=== PATIENT | male | born 1955 | race Caucasian/White ===

== ENCOUNTER 2021-07-15 15:32 | Inpatient (IN) | payer BC ==
[2021-07-15] MEDS ORDERED: PIPERACILLIN-TAZOBACTAM 3.375 GM in SODIUM CHLORIDE 0.9% 100 ML IVPB ONE (16:15)
[2021-07-15 16:40] LABS: Basophils % (A) 0 %; Eosinophils % (A) 0 %; HGB 13.8 gm/dL (13.0-17.5); Lymphocytes # (A) 0.9 k/uL (1.0-4.8); Lymphocytes % (A) 6 %; MCHC 32.9 g/dL (31.0-37.0); MCV 91.2 fL (80.0-100.0); Mean Platelet Volume 9.2; Monocytes % (A) 7 %; Neutrophils # (A) 12.8 k/uL (1.3-7.7); Neutrophils % (A) 84 %; Platelet Count 135 k/uL (150-450); RDW 14.9 % (11.5-15.5); WBC 15.3 k/uL (3.8-10.6)
[2021-07-15 16:48] LABS: ALT 28 U/L (4-49); AST 42 U/L (17-59); African American GFR (CKD) >90 (>60 ml/min/1.73 sqM); Albumin 4.5 g/dL (3.5-5.0); Alkaline Phosphatase 237 U/L (38-126); Anion Gap 12 mmol/L; Blood Urea Nitrogen 17 mg/dL (9-20); Calcium 9.7 mg/dL (8.4-10.2); Carbon Dioxide 20 mmol/L (22-30); Chloride 98 mmol/L (98-107); Glucose 149 mg/dL (74-99); Non-African American GFR(CKD) >90 (>60 ml/min/1.73 sqM); Potassium 4.6 mmol/L (3.5-5.1); Sodium 130 mmol/L (137-145); Total Bilirubin 5.6 mg/dL (0.2-1.3); Total Protein 8.6 g/dL (6.3-8.2)
--- NOTE | 2021-07-15 17:35 | CT ---
EXAMINATION TYPE: CT facial bones w con DATE OF EXAM: 07/15/2021 COMPARISON: None HISTORY: left sided facial swelling, tooth infection CT DLP: 588.7 mGycm Automated exposure control for dose reduction was used. CONTRAST: Performed with IV Contrast, patient injected with 100 mL of Isovue 300. Images obtained from the bottom of the mandible to the top of the orbits with IV contrast. Submandibular salivary glands are symmetric. The parotid glands are fairly symmetric. The mandibular ring appears intact. There is no evidence of a fracture. The maxilla is intact. There is mucosal thic kening left maxillary sinus. There are multiple missing teeth. There is some depression of the floor of the left bony orbit consistent with an old blowout fracture. I see no acute fracture. Nasal bone i s intact. There is normal aeration of the mastoid sinuses. There is asymmetric increased soft tissue density in the left side of the oropharynx and medial to th e left mandible that measures 3.7 x 2.3 cm. There is no significant fluid. This is consistent with a large phlegmon. There are some submandibular bilateral enlarged lymph nodes. This is more on the left side and larges t measures 13 mm. There is no discrete fluid collection. IMPRESSION: Left maxillary sinusitis. Old blowout fracture left orbit. There is lucency around the left side maxi llary teeth consistent with periodontal disease. Large inflammatory-appearing mass on the medial aspect of the left mandible in the oropharynx and con sistent with phlegmon.
[2021-07-15] MEDS: CLINDAMYCIN 600 MG in DEXTROSE 5% IN WATER 50 ML IVPB SCH ×4 (17:58→23:22)
--- NOTE | 2021-07-15 18:23 | ED ---
ENT HPI - General Chief complaint: Dental/Oral Stated complaint: Dental pain Time Seen by Provider: 07/15/21 15:41 Source: patient, RN notes reviewed Mode of arrival: ambulatory Limitations: no limitations - History of Present Illness Initial comments: Patient is a 65-year-old male that presents to the emergency department complaining of left-sided facial pain and swelling. He notes it is been going on for the past 4 days. He notes that last night it became difficult to handle oral secretions. This is when he decided come emergency room to get evaluated. Patient denied any other issues or complaints other than the facial pain and swelling and difficulty swallowing. Patient denied any chest pain shortness of breath headache nausea vomiting diarrhea constipation fever fatigue chills. - Related Data Previous Rx's Medication Instructions Recorded Aspirin 81 mg PO DAILY 30 Days chew 01/31/15 Digoxin [Lanoxin] 125 mcg PO Q48H #30 tab 01/31/15 Furosemide [Lasix] 40 mg PO BID@0900,1600 #60 tab 01/31/15 Spironolactone [Aldactone] 25 mg PO DAILY #30 tab 01/31/15 Warfarin [Coumadin] 2.5 mg PO DAILY #30 tab 01/31/15 carvediloL [Coreg*] 12.5 mg PO BID-W/MEALS #60 tab 01/31/15 lisinopriL [Zestril] 10 mg PO DAILY #30 tab 01/31/15 Allergies Allergy/AdvReac Type Severity Reaction Status Date / Time No Known Allergies Allergy Verified 07/15/21 15:37 Review of Systems ROS Statement: Those systems with pertinent positive or pertinent negative responses have been documented in the HPI. ROS Other: All systems not noted in ROS Statement are negative. Past Medical History Past Medical History: Atrial Fibrillation, Coronary Artery Disease (CAD), Diabetes Mellitus, Hyperlipidemia, Hypertension History of Any Multi-Drug Resistant Organisms: None Reported Past Surgical History: No Surgical Hx Reported Past Anesthesia/Blood Transfusion Reactions: No Reported Reaction Past Psychological History: No Psychological Hx Reported Smoking Status: Current every day smoker Past Alcohol Use History: Occasional Past Drug Use History: None Reported - Past Family History Sister(s) Family Medical History: No Reported History Brother(s) Family Medical History: Coronary Artery Disease (CAD) Additional Family Medical History / Comment(s): CABG Mother Family Medical History: Diabetes Mellitus General Exam Limitations: no limitations General appearance: alert, in no apparent distress, other (Submandibular swelling, swollen tongue, elevated tongue.) Head exam: Present: atraumatic, normocephalic, normal inspection Eye exam: Present: normal appearance, PERRL, EOMI. Absent: scleral icterus, conjunctival injection, periorbital swelling ENT exam: Present: normal exam, mucous membranes moist Neck exam: Present: normal inspection Respiratory exam: Present: normal lung sounds bilaterally. Absent: respiratory distress, wheezes, rales, rhonchi, stridor Cardiovascular Exam: Present: regular rate, normal rhythm, normal heart sounds. Absent: systolic murmur, diastolic murmur, rubs, gallop, clicks GI/Abdominal exam: Present: soft, normal bowel sounds. Absent: distended, tenderness, guarding, rebound, rigid Extremities exam: Present: normal inspection, full ROM, normal capillary refill. Absent: tenderness, pedal edema, joint swelling, calf tenderness Neurological exam: Present: alert, oriented X3 Psychiatric exam: Present: normal affect, normal mood Skin exam: Present: warm, dry, intact, normal color. Absent: rash Course Vital Signs 07/15/21 15:34 Pulse Rate 93 Respiratory 20 Rate Blood Pressure 131/76 O2 Sat by Pulse 95 Oximetry Medical Decision Making - Medical Decision Making 65-year-old male complaining of left-sided facial swelling pain. Labs, blood culture, CT of the face ordered. Labs: White blood cells 15.3, rest labs unremarkable. Zosyn and clindamycin started intravenously. Dr. Valadez was consulted and wants patient admitted to medicine with him on consult. Case discussed with Dr. Nguyen, patient will be admitted. Dr. Quintero was consult and will accept the admit - Lab Data Result diagrams: 07/15/21 15:56 07/15/21 15:56 Lab Results 07/15/21 07/15/21 07/15/21 Range/Units 15:56 15:56 15:56 WBC 15.3 H (3.8-10.6) k/uL RBC 4.60 (4.30-5.90) m/uL Hgb 13.8 (13.0-17.5) gm/dL Hct 42.0 (39.0-53.0) % MCV 91.2 (80.0-100.0) fL MCH 30.0 (25.0-35.0) pg MCHC 32.9 (31.0-37.0) g/dL RDW 14.9 (11.5-15.5) % Plt Count 135 L (150-450) k/uL MPV 9.2 Neutrophils % 84 % Lymphocytes % 6 % Monocytes % 7 % Eosinophils % 0 % Basophils % 0 % Neutrophils # 12.8 H (1.3-7.7) k/uL Lymphocytes # 0.9 L (1.0-4.8) k/uL Monocytes # 1.0 (0-1.0) k/uL Eosinophils # 0.0 (0-0.7) k/uL Basophils # 0.0 (0-0.2) k/uL Sodium 130 L (137-145) mmol/L Potassium 4.6 (3.5-5.1) mmol/L Chloride 98 (98-107) mmol/L Carbon Dioxide 20 L (22-30) mmol/L Anion Gap 12 mmol/L BUN 17 (9-20) mg/dL Creatinine 0.82 (0.66-1.25) mg/dL Est GFR (CKD-EPI)AfAm >90 (>60 ml/min/1.73 sqM) Est GFR (CKD-EPI)NonAf >90 (>60 ml/min/1.73 sqM) Glucose 149 H (74-99) mg/dL Plasma Lactic Acid Jerson 1.4 (0.7-2.0) mmol/L Calcium 9.7 (8.4-10.2) mg/dL Total Bilirubin 5.6 H (0.2-1.3) mg/dL AST 42 (17-59) U/L ALT 28 (4-49) U/L Alkaline Phosphatase 237 H (38-126) U/L Total Protein 8.6 H (6.3-8.2) g/dL Albumin 4.5 (3.5-5.0) g/dL - Radiology Data Radiology results: report reviewed, image reviewed CT of the facial bones: Left maxillary sinusitis. Old blowout fracture left orbit. There is lucency around the left side maxillary teeth consistent with periodontal disease. Large inflammatory appearing mass on the medial aspect of the left mandible in the oropharynx consistent with phlegmon. Disposition Clinical Impression: Submandibular abscess, Pain, dental Disposition: ADMITTED IP TO THIS HOSP Condition: Stable Is patient prescribed a controlled substance at d/c from ED?: No Referrals: Barbara Hampton MD [Primary Care Provider] - 1-2 days Time of Disposition: 18:53
[2021-07-15] MEDS ORDERED: NALOXONE 0.4 MG/ML 1 ML VIAL IV PRN (18:54)
[2021-07-15] MEDS: SODIUM CHLORIDE 0.9% 1,000 ML IV SCH (19:54)
[2021-07-16] MEDS: PIPERACILLIN-TAZOBACTAM 3.375 GM in SODIUM CHLORIDE 0.9% 100 ML IVPB SCH ×2 (00:28→09:31)
[2021-07-16] MEDS: SODIUM CHLORIDE 0.9% 1,000 ML IV SCH ×2 (06:00→11:55)
[2021-07-16 07:35] LABS: Glucose,Whole Blood 130 mg/dL (75-99)
[2021-07-16] MEDS: CLINDAMYCIN 600 MG in DEXTROSE 5% IN WATER 50 ML IVPB SCH ×4 (08:15→15:25)
--- NOTE | 2021-07-16 09:18 | P.GSCN ---
History of Present Illness Consult date: 07/16/21 Reason for Consult: Facial swelling Requesting physician: Quincy Nguyen History of present illness: Patient sitting up in bed appears comfortable reported needle and 5 days of swelling and pain left side of his jaw. He had not sought any treatment up to this point. Reported when he eat a piece of food Caught between his teeth and that made the pain worse. Today the patient reported some improvement with the swelling since IV antibiotics had been started. Review of Systems - Constitutional Reports as per HPI - EENT EENT Comment(s): Patient reports some difficulty swallowing no difficulty breathing. He reports some improvement in the pain of his mouth since starting IV antibiotics yesterday. Past Medical History Past Medical History: Atrial Fibrillation, Coronary Artery Disease (CAD), Diabetes Mellitus, Hyperlipidemia, Hypertension Additional Past Medical History / Comment(s): Patient's chart revealed a admission in 2014 congestive heart failure with some mention of alcohol-related cardiomyopathy. The patient admitted to still drinking but not drinking as much as he used to. History of Any Multi-Drug Resistant Organisms: None Reported Past Surgical History: No Surgical Hx Reported Past Anesthesia/Blood Transfusion Reactions: No Reported Reaction Past Psychological History: No Psychological Hx Reported Smoking Status: Current every day smoker Past Alcohol Use History: Occasional Additional Past Alcohol Use History / Comment(s): smokes 1.5 packs per day Past Drug Use History: None Reported - Past Family History Sister(s) Family Medical History: No Reported History Brother(s) Family Medical History: Coronary Artery Disease (CAD) Additional Family Medical History / Comment(s): CABG Mother Family Medical History: Diabetes Mellitus Medications and Allergies Home Medications Medication Instructions Recorded Confirmed Type Spironolactone [Aldactone] 25 mg PO DAILY #30 tab 01/31/15 07/15/21 Rx lisinopriL [Zestril] 10 mg PO DAILY #30 tab 01/31/15 07/15/21 Rx Atorvastatin [Lipitor] 40 mg PO HS 07/15/21 07/15/21 History Carvedilol [Coreg] 25 mg PO BID 07/15/21 07/15/21 History Furosemide [Lasix] 40 mg PO DAILY 07/15/21 07/15/21 History Warfarin [Coumadin] 10 mg PO HS 07/15/21 07/15/21 History amLODIPine [Norvasc] 10 mg PO DAILY 07/15/21 07/15/21 History Allergies Allergy/AdvReac Type Severity Reaction Status Date / Time No Known Allergies Allergy Verified 07/15/21 19:23 Surgical - Exam Vital Signs Pulse Resp BP Pulse Ox 93 20 131/76 95 07/15/21 15:34 07/15/21 15:34 07/15/21 15:34 07/15/21 15:34 Patient has a submandibular swelling approximately 1-1/2 cm with elevation of the floor the mouth. Seem to be some spontaneous bleeding near the lingual gutter of tooth #19. The patient's mouth opening seems to be within normal limits able to visualize his posterior oropharynx. Patient does have a strong gag reflex. Tooth #18 appears to have some periodontal disease and tooth #19 has broken beyond repair. Results Elevated white count suggestive of infection. Decreased platelets combined with Coumadin therapy makes surgery more challenging. - Labs 07/15/21 15:56 07/15/21 15:56 Abnormal Lab Results - Last 24 Hours (Table) 07/15/21 07/15/21 07/16/21 Range/Units 15:56 15:56 06:59 WBC 15.3 H (3.8-10.6) k/uL Plt Count 135 L (150-450) k/uL Neutrophils # 12.8 H (1.3-7.7) k/uL Lymphocytes # 0.9 L (1.0-4.8) k/uL Sodium 130 L (137-145) mmol/L Carbon Dioxide 20 L (22-30) mmol/L Glucose 149 H (74-99) mg/dL POC Glucose (mg/dL) 130 H (75-99) mg/dL Total Bilirubin 5.6 H (0.2-1.3) mg/dL Alkaline Phosphatase 237 H (38-126) U/L Total Protein 8.6 H (6.3-8.2) g/dL Diabetes panel 07/15/21 Range/Units 15:56 Sodium 130 L (137-145) mmol/L Potassium 4.6 (3.5-5.1) mmol/L Chloride 98 (98-107) mmol/L Carbon Dioxide 20 L (22-30) mmol/L BUN 17 (9-20) mg/dL Creatinine 0.82 (0.66-1.25) mg/dL Glucose 149 H (74-99) mg/dL Calcium 9.7 (8.4-10.2) mg/dL AST 42 (17-59) U/L ALT 28 (4-49) U/L Alkaline Phosphatase 237 H (38-126) U/L Total Protein 8.6 H (6.3-8.2) g/dL Albumin 4.5 (3.5-5.0) g/dL Calcium panel 07/15/21 Range/Units 15:56 Calcium 9.7 (8.4-10.2) mg/dL Albumin 4.5 (3.5-5.0) g/dL Pituitary panel 07/15/21 Range/Units 15:56 Sodium 130 L (137-145) mmol/L Potassium 4.6 (3.5-5.1) mmol/L Chloride 98 (98-107) mmol/L Carbon Dioxide 20 L (22-30) mmol/L BUN 17 (9-20) mg/dL Creatinine 0.82 (0.66-1.25) mg/dL Glucose 149 H (74-99) mg/dL Calcium 9.7 (8.4-10.2) mg/dL Adrenal panel 07/15/21 Range/Units 15:56 Sodium 130 L (137-145) mmol/L Potassium 4.6 (3.5-5.1) mmol/L Chloride 98 (98-107) mmol/L Carbon Dioxide 20 L (22-30) mmol/L BUN 17 (9-20) mg/dL Creatinine 0.82 (0.66-1.25) mg/dL Glucose 149 H (74-99) mg/dL Calcium 9.7 (8.4-10.2) mg/dL Total Bilirubin 5.6 H (0.2-1.3) mg/dL AST 42 (17-59) U/L ALT 28 (4-49) U/L Alkaline Phosphatase 237 H (38-126) U/L Total Protein 8.6 H (6.3-8.2) g/dL Albumin 4.5 (3.5-5.0) g/dL Assessment and Plan Assessment: Submandibular space infection most likely related to fractured tooth #19. Atrial fibrillation with Coumadin therapy Coumadin therapy Thrombocytopenia Plan: Patient seems to be improving on current medical management. Currently no airway embarrassment able to maintain his saliva. Patient is high risk for bleeding. Await current INR. Recommend continue IV antibiotic therapy. Recommend head of bed elevated and patient sit up in the chair when awake. Recommend heating pad to the side of the neck. Time with Patient: Greater than 30
[2021-07-16] MEDS ORDERED: carvediloL 12.5 MG TAB PO SCH (09:45)
--- NOTE | 2021-07-16 10:53 | P.HPIM ---
History of Present Illness H&P Date: 07/16/21 Chief Complaint: dental abscess This is a 65-year-old male patient who presented with concerns of ongoing jaw and mouth swelling. Patient reports the symptoms have been ongoing for the past 5 days. Patient reports that last night it became increasingly more swollen and he felt like his tongue was only could not handle his oral secretions. Patient denies any previous antibiotics prior to ER. Patient does appear to have poor dental hygiene. Patient with a past medical history of atrial fibrillation in which she is maintained on Coumadin, coronary artery disease, diabetes mellitus, hyperlipidemia, hypertension and nicotine dependence. CT completed showing left maxillary sinusitis, old blowout fracture left orbit there is lucency around the left side maxillary teeth consistent with periodontal disease. Large inflammatory appearing mass in the medial aspect of the left mandible in the or for pharynx and consistent with phlegmon. Patient has been admitted. Dr. Valadez has been consulted. Patient has been started on IV antibiotics. Patient is currently resting comfortably in bed. Does report some improvement in regards to pain and swelling. Patient denies chest pain or shortness breath. Patient denies nausea vomiting or diarrhea. Patient denies any urinary burning or frequency. Review of Systems please refer to HPI otherwise unremarkable Past Medical History Past Medical History: Atrial Fibrillation, Coronary Artery Disease (CAD), Diabetes Mellitus, Hyperlipidemia, Hypertension Additional Past Medical History / Comment(s): Patient's chart revealed a admission in 2014 congestive heart failure with some mention of alcohol-related cardiomyopathy. The patient admitted to still drinking but not drinking as much as he used to. History of Any Multi-Drug Resistant Organisms: None Reported Past Surgical History: No Surgical Hx Reported Past Anesthesia/Blood Transfusion Reactions: No Reported Reaction Past Psychological History: No Psychological Hx Reported Smoking Status: Current every day smoker Past Alcohol Use History: Occasional Additional Past Alcohol Use History / Comment(s): smokes 1.5 packs per day Past Drug Use History: None Reported - Past Family History Sister(s) Family Medical History: No Reported History Brother(s) Family Medical History: Coronary Artery Disease (CAD) Additional Family Medical History / Comment(s): CABG Mother Family Medical History: Diabetes Mellitus Medications and Allergies Home Medications Medication Instructions Recorded Confirmed Type Spironolactone [Aldactone] 25 mg PO DAILY #30 tab 01/31/15 07/15/21 Rx lisinopriL [Zestril] 10 mg PO DAILY #30 tab 01/31/15 07/15/21 Rx Atorvastatin [Lipitor] 40 mg PO HS 07/15/21 07/15/21 History Carvedilol [Coreg] 25 mg PO BID 07/15/21 07/15/21 History Furosemide [Lasix] 40 mg PO DAILY 07/15/21 07/15/21 History Warfarin [Coumadin] 10 mg PO HS 07/15/21 07/15/21 History amLODIPine [Norvasc] 10 mg PO DAILY 07/15/21 07/15/21 History Allergies Allergy/AdvReac Type Severity Reaction Status Date / Time No Known Allergies Allergy Verified 07/15/21 19:23 Physical Exam Vitals: Vital Signs Temp Pulse Pulse Resp BP BP Pulse Ox 07/16/21 08:00 18 07/16/21 06:56 97.4 F L 92 18 102/64 93 L 07/16/21 01:19 EDT 97.6 F 90 18 116/66 94 L 07/15/21 22:48 97.1 F L 104 H 20 108/67 93 L 07/15/21 15:34 93 20 131/76 95 Intake and Output 07/15/21 07/16/21 07/16/21 23:59 06:59 14:59 Intake Total 100 Balance 100 Intake: IV Sodium Chloride 0.9% 1, 000 ml @ 20 mls/hr IV . Q24H [facility] Rx#:[id number] Oral 100 Other: Voiding Method Toilet # Voids Weight Head normocephalic. Left sided jaw swelling. Poor dental hygiene Neck supple Lungs clear to auscultation bilaterally no wheezing or crackles Heart regular rate and rhythm S1-S2, no rub or gallop Abdomen is soft nontender nondistended positive bowel sounds no hepatosplenomegaly Extremities no edema Neuro alert and orientated to 3 Results CBC & Chem 7: 07/15/21 15:56 07/15/21 15:56 Labs: Abnormal Lab Results - Last 24 Hours (Table) 07/15/21 07/15/21 07/16/21 Range/Units 15:56 15:56 06:59 WBC 15.3 H (3.8-10.6) k/uL Plt Count 135 L (150-450) k/uL Neutrophils # 12.8 H (1.3-7.7) k/uL Lymphocytes # 0.9 L (1.0-4.8) k/uL Sodium 130 L (137-145) mmol/L Carbon Dioxide 20 L (22-30) mmol/L Glucose 149 H (74-99) mg/dL POC Glucose (mg/dL) 130 H (75-99) mg/dL Total Bilirubin 5.6 H (0.2-1.3) mg/dL Alkaline Phosphatase 237 H (38-126) U/L Total Protein 8.6 H (6.3-8.2) g/dL Thrombosis Risk Factor Assmnt - Choose All That Apply Any of the Below Risk Factors Present?: Yes Each Factor Represents 1 point: Obesity (BMI >25) Other Risk Factors: Yes Each Risk Factor Represents 2 Points: Age 61-74 years Other congenital or acquired thrombophilia - If yes, enter type in comment: No Thrombosis Risk Factor Assessment Total Risk Factor Score: 3 Thrombosis Risk Factor Assessment Level: Moderate Risk Assessment and Plan Assessment: 1. Dental abscess. Dr. Valadez following. Patient remains on IV antibiotics 2. History of atrial fibrillation maintained on Coumadin 3. Known history of coronary artery disease 4. Diabetes mellitus. Will order sliding scale coverage in order hemoglobin A1c 5. History of essential hypertension 6. History of hyperlipidemia 7. History of congestive heart failure noted in 2014 with low EF. Repeat 2-D echo has been ordered 8. Ongoing nicotine dependence. Patient educated greater than 3 minutes on smoking sensation nicotine patch ordered DVT prophylaxis Coumadin. GI prophylaxis Protonix Continue IV antibiotics 2-D echo ordered Repeat labs ordered Time with Patient: Greater than 30 (Greater than 60% of the total time spent in counseling and coordination of care)
[2021-07-16] MEDS: FUROSEMIDE 40 MG TAB PO SCH (11:55)
[2021-07-16] MEDS: NICOTINE 14MG/24HR PATCH TRANSDERM SCH (11:55)
[2021-07-16 11:59] LABS: Basophils % (A) 0 %; Eosinophils % (A) 0 %; HCT 37.9 % (39.0-53.0); HGB 12.6 gm/dL (13.0-17.5); Lymphocytes # (A) 0.9 k/uL (1.0-4.8); Lymphocytes % (A) 7 %; MCH 30.3 pg (25.0-35.0); MCHC 33.3 g/dL (31.0-37.0); MCV 91.2 fL (80.0-100.0); Mean Platelet Volume 8.4; Monocytes # (A) 0.8 k/uL (0-1.0); Monocytes % (A) 7 %; Neutrophils # (A) 10.2 k/uL (1.3-7.7); Neutrophils % (A) 82 %; Platelet Count 135 k/uL (150-450); RBC 4.16 m/uL (4.30-5.90); WBC 12.5 k/uL (3.8-10.6)
[2021-07-16 12:12] LABS: AST 51 U/L (17-59); African American GFR (CKD) >90 (>60 ml/min/1.73 sqM); Albumin 3.8 g/dL (3.5-5.0); Blood Urea Nitrogen 18 mg/dL (9-20); Carbon Dioxide 19 mmol/L (22-30); Globulin 3.8 g/dL; Glucose 139 mg/dL (74-99); Non-African American GFR(CKD) >90 (>60 ml/min/1.73 sqM); Total Bilirubin 4.5 mg/dL (0.2-1.3); Total Protein 7.6 g/dL (6.3-8.2)
[2021-07-16 12:30] LABS: ALT 33 U/L (4-49); Alkaline Phosphatase 177 U/L (38-126); Anion Gap 12 mmol/L; Calcium 9.1 mg/dL (8.4-10.2); Chloride 103 mmol/L (98-107); Potassium 4.1 mmol/L (3.5-5.1); Sodium 134 mmol/L (137-145)
[2021-07-16 12:33] LABS: Glucose,Whole Blood 130 mg/dL (75-99)
[2021-07-16] MEDS: INSULIN ASPART (NovoLOG) 100 UNIT/ML VIAL SQ SCH ×3 (12:55→20:43)
[2021-07-16 13:09] LABS: Prothrombin Time 66.2 sec (9.0-12.0)
[2021-07-16 13:13] LABS: INR 6.8 (<1.2)
[2021-07-16] MEDS: lisinopriL 10 MG TAB PO SCH (13:28)
[2021-07-16 17:25] LABS: Glucose,Whole Blood 107 mg/dL (75-99)
[2021-07-16] MEDS ORDERED: WARFARIN 0.5 MG TAB PO ONE (18:00)
[2021-07-16] MEDS: AMPICILLIN-SULBACTAM 3 GM in SODIUM CHLORIDE 0.9% 100 ML IVPB SCH ×2 (18:13→23:31)
[2021-07-16 20:01] LABS: Glucose,Whole Blood 137 mg/dL (75-99)
[2021-07-16] MEDS: ATORVASTATIN 40 MG TAB PO SCH (20:41)
[2021-07-16] MEDS: carvediloL 12.5 MG TAB PO SCH (20:42)
[2021-07-16] MEDS ORDERED: WARFARIN 10 MG TAB PO SCH (21:00)
--- NOTE | 2021-07-16 22:40 | P.CONS ---
History of Present Illness - Reason for Consult Consult date: 07/16/21 infected jaw Requesting physician: Raffi Quintero - Chief Complaint left lower jaw pain x 5 days - History of Present Illness History of present illness : Patient is 65-year-old male presenting to the ER for left lower jaw pain and swelling that has been getting worse for the last 5 days before presentation to the hospital patient apparently has been concerned of a piece of food article caught between his teeth that has made his pain to get worse patient describing the pain to be more of a throbbing to sharp intensity is almost 5-6 out of 10 and no radiation patient denies high-grade fever or chills on presentation to the hospital the patient did have a elevated white count 15.3 with a left shift INR was elevated kidney function was normal raymond PCR was negative patient did have a CT of the face patient is large intermittent bleeding most on the medial aspect of the left mandible in the oropharynx consistent with the following patient been evaluated by general surgery with evidence of statement of 19 broken beyond repair with some inflammatory changes but mention no surgical intervention patient is currently being treated with Zosyn and clindamycin infectious disease was consulted for further management of antibiotic therapy Review of system: CONSTITUTIONAL: Positive for weakness denies high-grade fever. EYES: No complaint. ENT: As per history of present illness. RESPIRATORY: No complaint. CARDIOVASCULAR: No complaint. GENITOURINARY: No complaint. GASTROINTESTINAL: No complaint. MUSCULOSKELETAL: No complaint. INTEGUMENTARY: No complaint. PSYCHOLOGIC: No complaint. ENDOCRINE: No complaint. NEUROLOGIC: No complaint. Past medical history : Reviewed, documented below Past surgical history : Reviewed, documented below Social history: Reviewed, documented below Medications: Reviewed, as documented below EXAMINATION: Vital sigans= Reviewed and documented below GENERAL DESCRIPTION: Middle-aged male up in bed, no distress. No tachypnea or accessory muscle of respiration use. HEENT: Shows Pallor , no scleral icterus. Oral mucous membrane is dry. Left lower jaw did have significant inflammatory changes no purulent drainage was noticed NECK: Trachea central, no thyromegaly. LUNGS: Unlabored breathing. Clear to auscultation anteriorly. No wheeze or crackle. HEART: S1, S2, regular rate and rhythm. ABDOMEN: Soft, no tenderness , guarding or rigidity EXTREMITIES: No edema of feet. SKIN: No rash, no masses palpable. NEUROLOGICAL: The patient is awake, alert, oriented x3, mood and affect normal. LABS AND RADIOLOGY: Reviewed results see below Assessment : Patient with a left lower jaw abscess and cellulitis in this p atient predominantly involving his tooth #19 which apparently is broken beyond repair and will need to cover for the polymicrobial oral magalis to cover for this abscess empirically Plan: 1-discontinue Zosyn and clindamycin 2-start the patient on Unasyn 3 g every 6 hours 3-gentle IV fluid We will follow on clinical condition and cultures to further adjust medication if needed Thank you for this consultation we will follow the patient along with you Past Medical History Past Medical History: Atrial Fibrillation, Coronary Artery Disease (CAD), Diabetes Mellitus, Hyperlipidemia, Hypertension Additional Past Medical History / Comment(s): Patient's chart revealed a admission in 2014 congestive heart failure with some mention of alcohol-related cardiomyopathy. The patient admitted to still drinking but not drinking as much as he used to. History of Any Multi-Drug Resistant Organisms: None Reported Past Surgical History: No Surgical Hx Reported Past Anesthesia/Blood Transfusion Reactions: No Reported Reaction Past Psychological History: No Psychological Hx Reported Smoking Status: Current every day smoker Past Alcohol Use History: Occasional Additional Past Alcohol Use History / Comment(s): smokes 1.5 packs per day Past Drug Use History: None Reported - Past Family History Sister(s) Family Medical History: No Reported History Brother(s) Family Medical History: Coronary Artery Disease (CAD) Additional Family Medical History / Comment(s): CABG Mother Family Medical History: Diabetes Mellitus Medications and Allergies Home Medications Medication Instructions Recorded Confirmed Type Spironolactone [Aldactone] 25 mg PO DAILY #30 tab 01/31/15 07/15/21 Rx lisinopriL [Zestril] 10 mg PO DAILY #30 tab 01/31/15 07/15/21 Rx Atorvastatin [Lipitor] 40 mg PO HS 07/15/21 07/15/21 History Carvedilol [Coreg] 25 mg PO BID 07/15/21 07/15/21 History Furosemide [Lasix] 40 mg PO DAILY 07/15/21 07/15/21 History Warfarin [Coumadin] 10 mg PO HS 07/15/21 07/15/21 History amLODIPine [Norvasc] 10 mg PO DAILY 07/15/21 07/15/21 History Allergies Allergy/AdvReac Type Severity Reaction Status Date / Time No Known Allergies Allergy Verified 07/15/21 19:23 Physical Exam Vitals: Vital Signs Temp Pulse Resp BP Pulse Ox 07/16/21 19:40 98.3 F 102 H 18 109/66 98 07/16/21 14:02 98.3 F 96 18 116/73 96 07/16/21 14:00 96 18 07/16/21 11:37 92 20 119/75 98 07/16/21 08:00 18 07/16/21 06:56 97.4 F L 92 18 102/64 93 L 07/16/21 01:19 EDT 97.6 F 90 18 116/66 94 L Intake and Output 07/16/21 07/16/21 07/16/21 06:59 14:59 22:59 Intake Total 220 170 Balance 220 170 Intake: IV 50 Clindamycin 600 mg In 50 Dextrose 5% in Water 50 ml @ 50 mls/hr IVPB Q8HR [facility] Rx#:[id number] Sodium Chloride 0.9% 1, 000 ml @ 20 mls/hr IV . Q24H [facility] Rx#:[id number] Oral 220 120 Other: Voiding Method Toilet # Voids 1 2 Results CBC & Chem 7: 07/16/21 11:38 07/16/21 11:38 Labs: Abnormal Lab Results - Last 24 Hours (Table) 07/16/21 07/16/21 07/16/21 Range/Units 06:59 11:38 11:38 WBC 12.5 H (3.8-10.6) k/uL RBC 4.16 L (4.30-5.90) m/uL Hgb 12.6 L (13.0-17.5) gm/dL Hct 37.9 L (39.0-53.0) % Plt Count 135 L (150-450) k/uL Neutrophils # 10.2 H (1.3-7.7) k/uL Lymphocytes # 0.9 L (1.0-4.8) k/uL PT 66.2 H (9.0-12.0) sec INR 6.8 H* (<1.2) Sodium (137-145) mmol/L Carbon Dioxide (22-30) mmol/L Glucose (74-99) mg/dL POC Glucose (mg/dL) 130 H (75-99) mg/dL Total Bilirubin (0.2-1.3) mg/dL Alkaline Phosphatase (38-126) U/L 07/16/21 07/16/21 07/16/21 Range/Units 11:38 12:31 17:15 WBC (3.8-10.6) k/uL RBC (4.30-5.90) m/uL Hgb (13.0-17.5) gm/dL Hct (39.0-53.0) % Plt Count (150-450) k/uL Neutrophils # (1.3-7.7) k/uL Lymphocytes # (1.0-4.8) k/uL PT (9.0-12.0) sec INR (<1.2) Sodium 134 L (137-145) mmol/L Carbon Dioxide 19 L (22-30) mmol/L Glucose 139 H (74-99) mg/dL POC Glucose (mg/dL) 130 H 107 H (75-99) mg/dL Total Bilirubin 4.5 H (0.2-1.3) mg/dL Alkaline Phosphatase 177 H (38-126) U/L 07/16/21 Range/Units 19:59 WBC (3.8-10.6) k/uL RBC (4.30-5.90) m/uL Hgb (13.0-17.5) gm/dL Hct (39.0-53.0) % Plt Count (150-450) k/uL Neutrophils # (1.3-7.7) k/uL Lymphocytes # (1.0-4.8) k/uL PT (9.0-12.0) sec INR (<1.2) Sodium (137-145) mmol/L Carbon Dioxide (22-30) mmol/L Glucose (74-99) mg/dL POC Glucose (mg/dL) 137 H (75-99) mg/dL Total Bilirubin (0.2-1.3) mg/dL Alkaline Phosphatase (38-126) U/L Microbiology - Last 24 Hours (Table) 07/15/21 15:56 Blood Culture - Preliminary Blood No Growth after 24 hours
[2021-07-17] MEDS: AMPICILLIN-SULBACTAM 3 GM in SODIUM CHLORIDE 0.9% 100 ML IVPB SCH ×4 (05:11→23:25)
[2021-07-17 07:24] LABS: Glucose,Whole Blood 124 mg/dL (75-99)
[2021-07-17 07:27] LABS: Basophils % (A) 0 %; Eosinophils # (A) 0.1 k/uL (0-0.7); Eosinophils % (A) 1 %; HCT 38.1 % (39.0-53.0); HGB 12.4 gm/dL (13.0-17.5); Lymphocytes % (A) 10 %; MCH 29.8 pg (25.0-35.0); MCHC 32.6 g/dL (31.0-37.0); MCV 91.6 fL (80.0-100.0); Mean Platelet Volume 8.8; Monocytes # (A) 0.7 k/uL (0-1.0); Monocytes % (A) 7 %; Neutrophils # (A) 7.6 k/uL (1.3-7.7); Neutrophils % (A) 78 %; Platelet Count 141 k/uL (150-450); RBC 4.16 m/uL (4.30-5.90); RDW 15.1 % (11.5-15.5); WBC 9.8 k/uL (3.8-10.6)
[2021-07-17] MEDS: INSULIN ASPART (NovoLOG) 100 UNIT/ML VIAL SQ SCH ×4 (07:38→21:56)
[2021-07-17 07:44] LABS: Prothrombin Time 73.2 sec (9.0-12.0)
[2021-07-17 07:52] LABS: INR 7.5 (<1.2)
[2021-07-17 07:58] LABS: ALT 72 U/L (4-49); AST 119 U/L (17-59); African American GFR (CKD) >90 (>60 ml/min/1.73 sqM); Albumin 3.7 g/dL (3.5-5.0); Albumin/Globulin Ratio 0.9; Alkaline Phosphatase 207 U/L (38-126); Anion Gap 11 mmol/L; Blood Urea Nitrogen 17 mg/dL (9-20); Calcium 9.3 mg/dL (8.4-10.2); Carbon Dioxide 22 mmol/L (22-30); Chloride 104 mmol/L (98-107); Globulin 3.9 g/dL; Glucose 120 mg/dL (74-99); Non-African American GFR(CKD) >90 (>60 ml/min/1.73 sqM); Potassium 3.9 mmol/L (3.5-5.1); Sodium 137 mmol/L (137-145); Total Bilirubin 3.7 mg/dL (0.2-1.3); Total Protein 7.6 g/dL (6.3-8.2)
[2021-07-17] MEDS: NICOTINE 14MG/24HR PATCH TRANSDERM SCH (08:38)
[2021-07-17] MEDS: lisinopriL 10 MG TAB PO SCH (08:38)
[2021-07-17] MEDS: carvediloL 12.5 MG TAB PO SCH ×2 (08:38→21:55)
[2021-07-17] MEDS: FUROSEMIDE 40 MG TAB PO SCH (08:39)
[2021-07-17] MEDS: PANTOPRAZOLE 40 MG TABLET PO SCH (08:39)
[2021-07-17] MEDS: amLODIPine 10 MG TAB PO SCH (08:39)
[2021-07-17] MEDS: SPIRONOLACTONE 25 MG TAB PO SCH (08:39)
[2021-07-17] MEDS ORDERED: SPIRONOLACTONE 25 MG TAB PO SCH (09:00)
--- NOTE | 2021-07-17 09:44 | P.PN ---
Subjective Progress Note Date: 07/17/21 This is a 65-year-old male patient who presented with concerns of ongoing jaw and mouth swelling. Patient reports the symptoms have been ongoing for the past 5 days. Patient reports that last night it became increasingly more swollen and he felt like his tongue was only could not handle his oral secretions. Patient denies any previous antibiotics prior to ER. Patient does appear to have poor dental hygiene. Patient with a past medical history of atrial fibrillation in which she is maintained on Coumadin, coronary artery disease, diabetes mellitus, hyperlipidemia, hypertension and nicotine dependence. CT completed showing left maxillary sinusitis, old blowout fracture left orbit there is lucency around the left side maxillary teeth consistent with periodontal disease. Large inflammatory appearing mass in the medial aspect of the left mandible in the or for pharynx and consistent with phlegmon. Patient has been admitted. Dr. Valadez has been consulted. Patient has been started on IV antibiotics. Patient is currently resting comfortably in bed. Does report some improvement in regards to pain and swelling. Patient denies chest pain or shortness breath. Patient denies nausea vomiting or diarrhea. Patient denies any urinary burning or frequency. On 07/17/2021 patient alert and oriented 3. Patient still having significant swelling to left side of face. Antibiotics have been adjusted to Unasyn per infectious disease. INR currently elevated at 7.5. Coumadin on hold inte rventions currently on hold. 2-D echo also ordered to assess cardiac function. At this time patient denies chest pain or shortness breath. Patient denies nausea vomiting or diarrhea. Patient denies any urinary burning or frequency. White blood cell improving to 9.8 patient remains afebrile Objective - Vital Signs Vital signs: Vital Signs Temp 97.5 F L 07/17/21 07:00 Pulse 89 07/17/21 07:00 Resp 16 07/17/21 07:00 BP 128/75 07/17/21 07:00 Pulse Ox 95 07/17/21 07:00 Intake & Output 07/16/21 07/17/21 07/17/21 18:59 06:59 18:59 Intake Total 390 240 Balance 390 240 Intake: IV 50 Clindamycin 600 mg In 50 Dextrose 5% in Water 50 ml @ 50 mls/hr IVPB Q8HR [facility] Rx#:[id number] Oral 340 240 Other: Voiding Method Toilet # Voids 2 2 - Exam Head normocephalic. Left sided facial swelling. Poor dental hygiene Neck supple Lungs clear to auscultation bilaterally no wheezing or crackles Heart regular rate and rhythm S1-S2, no rub or gallop Abdomen is soft nontender nondistended positive bowel sounds no hepatosplenomegaly Extremities no edema Neuro alert and orientated to 3 Results - Labs CBC & Chem 7: 07/17/21 06:43 07/17/21 06:43 Labs: Abnormal Lab Results - Last 24 Hours (Table) 07/16/21 07/16/21 07/16/21 Range/Units 11:38 11:38 11:38 WBC 12.5 H (3.8-10.6) k/uL RBC 4.16 L (4.30-5.90) m/uL Hgb 12.6 L (13.0-17.5) gm/dL Hct 37.9 L (39.0-53.0) % Plt Count 135 L (150-450) k/uL Neutrophils # 10.2 H (1.3-7.7) k/uL Lymphocytes # 0.9 L (1.0-4.8) k/uL PT 66.2 H (9.0-12.0) sec INR 6.8 H* (<1.2) Sodium 134 L (137-145) mmol/L Carbon Dioxide 19 L (22-30) mmol/L Glucose 139 H (74-99) mg/dL POC Glucose (mg/dL) (75-99) mg/dL Hemoglobin A1c (4.0-6.0) % Total Bilirubin 4.5 H (0.2-1.3) mg/dL AST (17-59) U/L ALT (4-49) U/L Alkaline Phosphatase 177 H (38-126) U/L 07/16/21 07/16/21 07/16/21 Range/Units 11:38 12:31 17:15 WBC (3.8-10.6) k/uL RBC (4.30-5.90) m/uL Hgb (13.0-17.5) gm/dL Hct (39.0-53.0) % Plt Count (150-450) k/uL Neutrophils # (1.3-7.7) k/uL Lymphocytes # (1.0-4.8) k/uL PT (9.0-12.0) sec INR (<1.2) Sodium (137-145) mmol/L Carbon Dioxide (22-30) mmol/L Glucose (74-99) mg/dL POC Glucose (mg/dL) 130 H 107 H (75-99) mg/dL Hemoglobin A1c 6.5 H (4.0-6.0) % Total Bilirubin (0.2-1.3) mg/dL AST (17-59) U/L ALT (4-49) U/L Alkaline Phosphatase (38-126) U/L 07/16/21 07/17/21 07/17/21 Range/Units 19:59 06:43 06:43 WBC (3.8-10.6) k/uL RBC 4.16 L (4.30-5.90) m/uL Hgb 12.4 L (13.0-17.5) gm/dL Hct 38.1 L (39.0-53.0) % Plt Count 141 L (150-450) k/uL Neutrophils # (1.3-7.7) k/uL Lymphocytes # (1.0-4.8) k/uL PT (9.0-12.0) sec INR (<1.2) Sodium (137-145) mmol/L Carbon Dioxide (22-30) mmol/L Glucose 120 H (74-99) mg/dL POC Glucose (mg/dL) 137 H (75-99) mg/dL Hemoglobin A1c (4.0-6.0) % Total Bilirubin 3.7 H (0.2-1.3) mg/dL AST 119 H (17-59) U/L ALT 72 H (4-49) U/L Alkaline Phosphatase 207 H (38-126) U/L 07/17/21 07/17/21 Range/Units 06:43 07:22 WBC (3.8-10.6) k/uL RBC (4.30-5.90) m/uL Hgb (13.0-17.5) gm/dL Hct (39.0-53.0) % Plt Count (150-450) k/uL Neutrophils # (1.3-7.7) k/uL Lymphocytes # (1.0-4.8) k/uL PT 73.2 H (9.0-12.0) sec INR 7.5 H* (<1.2) Sodium (137-145) mmol/L Carbon Dioxide (22-30) mmol/L Glucose (74-99) mg/dL POC Glucose (mg/dL) 124 H (75-99) mg/dL Hemoglobin A1c (4.0-6.0) % Total Bilirubin (0.2-1.3) mg/dL AST (17-59) U/L ALT (4-49) U/L Alkaline Phosphatase (38-126) U/L Microbiology - Last 24 Hours (Table) 07/15/21 15:56 Blood Culture - Preliminary Blood No Growth after 24 hours Assessment and Plan Assessment: 1. Dental abscess. Dr. Valadez following. Patient remains on IV antibiotics 2. History of atrial fibrillation maintained on Coumadin 3. Known history of coronary artery disease 4. Diabetes mellitus. Will order sliding scale coverage in order hemoglobin A1c 5. History of essential hypertension 6. History of hyperlipidemia 7. History of congestive heart failure noted in 2014 with low EF. Repeat 2-D echo has been ordered 8. Ongoing nicotine dependence. Patient educated greater than 3 minutes on smoking sensation nicotine patch ordered 9. Supratherapeutic INR Coumadin currently on hold repeat INR ordered DVT prophylaxis Coumadin. GI prophylaxis Protonix Continue IV antibiotics 2-D echo ordered Repeat labs ordered
[2021-07-17] MEDS ORDERED: PHYTONADIONE 2 MG in SODIUM CHLORIDE 0.9% 50 ML IVPB STA (10:26)
[2021-07-17 12:13] LABS: Glucose,Whole Blood 143 mg/dL (75-99)
[2021-07-17] MEDS: SODIUM CHLORIDE 0.9% 1,000 ML IV SCH (13:19)
--- NOTE | 2021-07-17 17:17 | P.PN ---
Subjective Progress Note Date: 07/17/21 Principal diagnosis: Dental abscess Supratherapeutic Coumadin Patient's antibiotics have been changed to Unasyn per infectious disease. The patient's INR is now 7.5 and the nurse reported giving IV vitamin K. Patient reports feeling better still having no trouble breathing. Slight improvement with mouth swelling and difficulty swallowing per patient. Objective - Vital Signs Vital signs: Vital Signs Temp 98.0 F 07/17/21 15:00 Pulse 91 07/17/21 15:00 Resp 16 07/17/21 15:00 BP 111/66 07/17/21 15:00 Pulse Ox 99 07/17/21 15:00 Intake & Output 07/16/21 07/17/21 07/17/21 18:59 06:59 18:59 Intake Total 390 240 Balance 390 240 Intake: IV 50 Clindamycin 600 mg In 50 Dextrose 5% in Water 50 ml @ 50 mls/hr IVPB Q8HR [facility] Rx#:[id number] Oral 340 240 Other: Voiding Method Toilet Toilet # Voids 2 2 3 - Exam Patient's mouth opening is still within normal limits floor of mouth no longer spontaneously bleeding but still quite swollen on the left lingual gutter especially adjacent to tooth #18. 1-1/2-2 cm swelling adjacent to the left submandibular space. Does not cross the midline. Posterior all her oral pharynx is visualized. - Labs CBC & Chem 7: 07/17/21 06:43 07/17/21 06:43 Labs: Abnormal Lab Results - Last 24 Hours (Table) 07/16/21 07/16/21 07/16/21 Range/Units 11:38 17:15 19:59 RBC (4.30-5.90) m/uL Hgb (13.0-17.5) gm/dL Hct (39.0-53.0) % Plt Count (150-450) k/uL PT (9.0-12.0) sec INR (<1.2) Glucose (74-99) mg/dL POC Glucose (mg/dL) 107 H 137 H (75-99) mg/dL Hemoglobin A1c 6.5 H (4.0-6.0) % Total Bilirubin (0.2-1.3) mg/dL AST (17-59) U/L ALT (4-49) U/L Alkaline Phosphatase (38-126) U/L 07/17/21 07/17/21 07/17/21 Range/Units 06:43 06:43 06:43 RBC 4.16 L (4.30-5.90) m/uL Hgb 12.4 L (13.0-17.5) gm/dL Hct 38.1 L (39.0-53.0) % Plt Count 141 L (150-450) k/uL PT 73.2 H (9.0-12.0) sec INR 7.5 H* (<1.2) Glucose 120 H (74-99) mg/dL POC Glucose (mg/dL) (75-99) mg/dL Hemoglobin A1c (4.0-6.0) % Total Bilirubin 3.7 H (0.2-1.3) mg/dL AST 119 H (17-59) U/L ALT 72 H (4-49) U/L Alkaline Phosphatase 207 H (38-126) U/L 07/17/21 07/17/21 Range/Units 07:22 12:12 RBC (4.30-5.90) m/uL Hgb (13.0-17.5) gm/dL Hct (39.0-53.0) % Plt Count (150-450) k/uL PT (9.0-12.0) sec INR (<1.2) Glucose (74-99) mg/dL POC Glucose (mg/dL) 124 H 143 H (75-99) mg/dL Hemoglobin A1c (4.0-6.0) % Total Bilirubin (0.2-1.3) mg/dL AST (17-59) U/L ALT (4-49) U/L Alkaline Phosphatase (38-126) U/L Microbiology - Last 24 Hours (Table) 07/15/21 15:56 Blood Culture - Preliminary Blood No Growth after 24 hours Assessment and Plan Assessment: Submandibular space infection most likely related to fractured tooth #18 Atrial fibrillation with Coumadin therapy Coumadin therapy Plan: Patient continues to improve current medical management approve new antibiotic choice. Due supratherapeutic Coumadin therapy, all procedures would be on hold for now await new INR in the morning. Recommend heating pad to the side of the neck. Time with Patient: Less than 30
[2021-07-17 17:24] LABS: Glucose,Whole Blood 107 mg/dL (75-99)
[2021-07-17] MEDS ORDERED: WARFARIN 0.5 MG TAB PO ONE (18:00)
[2021-07-17 20:26] LABS: Glucose,Whole Blood 189 mg/dL (75-99)
[2021-07-17] MEDS: ATORVASTATIN 40 MG TAB PO SCH (21:55)
--- NOTE | 2021-07-17 23:13 | PN ---
PROGRESS NOTE DATE OF SERVICE: 07/17/2021 REASON FOR FOLLOWUP: Left lower jaw infection. INTERVAL HISTORY: The patient is afebrile, breathing comfortably. Pain to the left lower jaw has slightly decreased. No chest pain, shortness of breath or cough. No abdominal pain or diarrhea. PHYSICAL EXAMINATION: Blood pressure is 134/82 with a pulse of 96, temperature 97.4. He is 97% on room air. General description is a middle-aged male lying in bed in no distress. Respiratory system: Unlabored breathing, clear to auscultation anteriorly. Heart S1, S2. Regular rate and rhythm. Abdomen soft, no tenderness. Left lower jaw swelling and redness slightly decreased. LABS: Hemoglobin is 12.40. White count normalized to 9.8, creatinine 0.80. DIAGNOSTIC IMPRESSION AND PLAN: Patient with left lower jaw abscess, infected tooth #19. Patient is currently on Unasyn. White count has normalized. Continue Unasyn while monitoring his clinical course closely. Continue supportive care. MMODL / IJN: [id number] /
[2021-07-18] MEDS: AMPICILLIN-SULBACTAM 3 GM in SODIUM CHLORIDE 0.9% 100 ML IVPB SCH ×4 (05:29→23:39)
[2021-07-18 06:30] LABS: INR 1.5 (<1.2); Prothrombin Time 15.2 sec (9.0-12.0)
[2021-07-18 06:34] LABS: Basophils % (A) 1 %; Eosinophils # (A) 0.1 k/uL (0-0.7); Eosinophils % (A) 2 %; HCT 35.9 % (39.0-53.0); HGB 12.1 gm/dL (13.0-17.5); Lymphocytes # (A) 1.1 k/uL (1.0-4.8); Lymphocytes % (A) 16 %; MCH 30.5 pg (25.0-35.0); MCHC 33.7 g/dL (31.0-37.0); MCV 90.4 fL (80.0-100.0); Mean Platelet Volume 8.7; Monocytes # (A) 0.6 k/uL (0-1.0); Monocytes % (A) 8 %; Neutrophils # (A) 4.9 k/uL (1.3-7.7); Neutrophils % (A) 70 %; Platelet Count 145 k/uL (150-450); RBC 3.97 m/uL (4.30-5.90); RDW 15.7 % (11.5-15.5)
[2021-07-18 06:46] LABS: ALT 110 U/L (4-49); AST 143 U/L (17-59); African American GFR (CKD) >90 (>60 ml/min/1.73 sqM); Albumin 3.3 g/dL (3.5-5.0); Albumin/Globulin Ratio 0.9; Alkaline Phosphatase 190 U/L (38-126); Anion Gap 9 mmol/L; Blood Urea Nitrogen 14 mg/dL (9-20); Calcium 9.1 mg/dL (8.4-10.2); Carbon Dioxide 21 mmol/L (22-30); Chloride 106 mmol/L (98-107); Globulin 3.7 g/dL; Glucose 126 mg/dL (74-99); Non-African American GFR(CKD) >90 (>60 ml/min/1.73 sqM); Potassium 3.9 mmol/L (3.5-5.1); Sodium 136 mmol/L (137-145); Total Bilirubin 3.3 mg/dL (0.2-1.3)
[2021-07-18 07:17] LABS: Glucose,Whole Blood 145 mg/dL (75-99)
[2021-07-18] MEDS: INSULIN ASPART (NovoLOG) 100 UNIT/ML VIAL SQ SCH ×4 (08:36→20:54)
[2021-07-18] MEDS: lisinopriL 10 MG TAB PO SCH (09:58)
[2021-07-18] MEDS: FUROSEMIDE 40 MG TAB PO SCH (09:58)
[2021-07-18] MEDS: carvediloL 12.5 MG TAB PO SCH ×2 (09:59→20:55)
[2021-07-18] MEDS: SPIRONOLACTONE 25 MG TAB PO SCH (09:59)
[2021-07-18] MEDS: amLODIPine 10 MG TAB PO SCH (09:59)
[2021-07-18] MEDS: NICOTINE 14MG/24HR PATCH TRANSDERM SCH (09:59)
--- NOTE | 2021-07-18 12:00 | ECHOF ---
Referral Reason:check heart function MEASUREMENTS -------- HEIGHT: 180.3 cm WEIGHT: 87.1 kg BP: RVIDd: 3.1 cm (< 3.3) IVSd: 1.1 cm (0.6 - 1.1) LVIDd: 3.5 cm (3.9 - 5.3) LVPWd: 1.3 cm (0.6 - 1.1) IVSs: 1.5 cm LVIDs: 2.4 cm LVPWs: 1.5 cm LAESV Index (A-L): 26.95 ml/m Ao Diam: 3.5 cm (2.0 - 3.7) AV Cusp: 1.5 cm (1.5 - 2.6) LA Diam: 3.7 cm (2.7 - 3.8) MV EXCURSION: 20.824 mm (> 18.000) MV EF SLOPE: 175 mm/s (70 - 150) EPSS: 1.6 cm RAP: 5.00 mmHg RVSP: 31.22 mmHg FINDINGS -------- Atrial fibrillation. This was a technically adequate study. The left ventricular size is normal. Left ventricular wall thickness is normal. Overall left vent ricular systolic function is low-normal with, an EF between 50 - 55 %. The right ventricle is normal in size. Normal LA size by volume 22+/-6 ml/m2. The right atrial size is normal. Aortic valve is trileaflet and is mildly thickened. Mild mitral annular calcification present. There is trace mitral regurgitation. The tricuspid valve appears structurally normal. Mild tricuspid regurgitation present. Right vent ricular systolic pressure is normal at < 35 mmHg. There is no pulmonic regurgitation present. The aortic root size is normal. Normal inferior vena cava with normal inspiratory collapse consistent with estimated right atrial pre ssure of 5 mmHg. There is no pericardial effusion. CONCLUSIONS -------- 1. Atrial fibrillation. 2. Overall left ventricular systolic function is low-normal with, an EF between 50 - 55 %. 3. Normal LA size by volume 22+/-6 ml/m2. 4. Aortic valve is trileaflet and is mildly thickened. 5. There is trace mitral regurgitation. 6. Mild tricuspid regurgitation present. 7. There is no pericardial effusion. TUMBLING INSTRUCTOR: Cheryl Sena RDCS
[2021-07-18 12:27] LABS: Glucose,Whole Blood 121 mg/dL (75-99)
[2021-07-18] MEDS: PANTOPRAZOLE 40 MG TABLET PO SCH (12:37)
[2021-07-18] MEDS: SODIUM CHLORIDE 0.9% 1,000 ML IV SCH (12:38)
[2021-07-18] MEDS ORDERED: ENOXAPARIN 40 MG/0.4 ML SYRINGE SQ SCH (13:15)
--- NOTE | 2021-07-18 13:20 | PN ---
PROGRESS NOTE DATE OF SERVICE: 07/18/2021 REASON FOR FOLLOWUP: Left lower jaw abscess and infected tooth. INTERVAL HISTORY: The patient is afebrile. He is breathing comfortably. Mentioned left lower jaw pain, though overall improvement. No nausea, no vomiting. No abdominal pain and no diarrhea. PHYSICAL EXAMINATION: Blood pressure 137/56, pulse of 97, temperature 97.5. He is 96% on room air. General description is a middle-aged male up in the chair in no distress. HEENT examination left lower area swelling has slightly decreased. No drainage was noticed. Lungs unlabored breathing, clear to auscultation anteriorly. Heart S1, S2. Regular rate and rhythm. Abdomen soft, no tenderness. LABS: Hemoglobin is 12.1, white count 7.0. Creatinine is 0.74. DIAGNOSTIC IMPRESSION AND PLAN: Patient with left lower jaw abscess and infected tooth #19. Minimal clinical improvement. To continue with Unasyn for another 24 to 48 hours before transitioning to oral antibiotics. Continue with supportive care. MMODL / IJN: [id number] /
--- NOTE | 2021-07-18 17:03 | P.PN ---
Subjective Progress Note Date: 07/18/21 This is a 65-year-old male patient who presented with concerns of ongoing jaw and mouth swelling. Patient reports the symptoms have been ongoing for the past 5 days. Patient reports that last night it became increasingly more swollen and he felt like his tongue was only could not handle his oral secretions. Patient denies any previous antibiotics prior to ER. Patient does appear to have poor dental hygiene. Patient with a past medical history of atrial fibrillation in which she is maintained on Coumadin, coronary artery disease, diabetes mellitus, hyperlipidemia, hypertension and nicotine dependence. CT completed showing left maxillary sinusitis, old blowout fracture left orbit there is lucency around the left side maxillary teeth consistent with periodontal disease. Large inflammatory appearing mass in the medial aspect of the left mandible in the or for pharynx and consistent with phlegmon. Patient has been admitted. Dr. Valadez has been consulted. Patient has been started on IV antibiotics. Patient is currently resting comfortably in bed. Does report some improvement in regards to pain and swelling. Patient denies chest pain or shortness breath. Patient denies nausea vomiting or diarrhea. Patient denies any urinary burning or frequency. On 07/17/2021 patient alert and oriented 3. Patient still having significant swelling to left side of face. Antibiotics have been adjusted to Unasyn per infectious disease. INR currently elevated at 7.5. Coumadin on hold inte rventions currently on hold. 2-D echo also ordered to assess cardiac function. At this time patient denies chest pain or shortness breath. Patient denies nausea vomiting or diarrhea. Patient denies any urinary burning or frequency. White blood cell improving to 9.8 patient remains afebrile On 07/18/2021 Patient was seen and examined on the medical floor, he is alert and oriented x 3 in no distress, he denies any complaints there is no fever or chills no headache or dizziness no chest pain no shortness of breath no palpitation no cough no nausea or vomiting no abdominal pain no diarrhea no blood in the stools no burning with urination no frequency or urgency and no hematuria, there is no weakness or numbness in any of the extremities no change in vision speech or gait. At this time infection is improving continue with current IV antibiotics awaiting surgical intervention possibly tomorrow, at this time INR is subtherapeutic after receiving vitamin K will start subcu Lovenox. Will resume Coumadin after surgery. Objective - Vital Signs Vital signs: Vital Signs Temp 97.5 F L 07/18/21 07:00 Pulse 89 07/18/21 07:05 Resp 18 07/18/21 07:05 BP 137/56 07/18/21 07:00 Pulse Ox 96 07/18/21 07:00 Intake & Output 07/17/21 07/18/21 07/18/21 18:59 06:59 18:59 Intake Total 240 Balance 240 Intake: Oral 240 Other: Voiding Method Toilet Toilet Toilet # Voids 3 3 - Exam Head normocephalic. Left sided facial swelling. Poor dental hygiene Neck supple Lungs clear to auscultation bilaterally no wheezing or crackles Heart regular rate and rhythm S1-S2, no rub or gallop Abdomen is soft nontender nondistended positive bowel sounds no hepatosplenomegaly Extremities no edema Neuro alert and orientated to 3 Results - Labs CBC & Chem 7: 07/18/21 05:35 07/18/21 05:35 Labs: Abnormal Lab Results - Last 24 Hours (Table) 07/17/21 07/17/21 07/17/21 Range/Units 12:12 17:23 20:25 RBC (4.30-5.90) m/uL Hgb (13.0-17.5) gm/dL Hct (39.0-53.0) % RDW (11.5-15.5) % Plt Count (150-450) k/uL PT (9.0-12.0) sec INR (<1.2) Sodium (137-145) mmol/L Carbon Dioxide (22-30) mmol/L Glucose (74-99) mg/dL POC Glucose (mg/dL) 143 H 107 H 189 H (75-99) mg/dL Total Bilirubin (0.2-1.3) mg/dL AST (17-59) U/L ALT (4-49) U/L Alkaline Phosphatase (38-126) U/L Albumin (3.5-5.0) g/dL 07/18/21 07/18/21 07/18/21 Range/Units 05:35 05:35 05:35 RBC 3.97 L (4.30-5.90) m/uL Hgb 12.1 L (13.0-17.5) gm/dL Hct 35.9 L (39.0-53.0) % RDW 15.7 H (11.5-15.5) % Plt Count 145 L (150-450) k/uL PT 15.2 H (9.0-12.0) sec INR 1.5 H (<1.2) Sodium 136 L (137-145) mmol/L Carbon Dioxide 21 L (22-30) mmol/L Glucose 126 H (74-99) mg/dL POC Glucose (mg/dL) (75-99) mg/dL Total Bilirubin 3.3 H (0.2-1.3) mg/dL AST 143 H (17-59) U/L ALT 110 H (4-49) U/L Alkaline Phosphatase 190 H (38-126) U/L Albumin 3.3 L (3.5-5.0) g/dL 07/18/21 Range/Units 07:16 RBC (4.30-5.90) m/uL Hgb (13.0-17.5) gm/dL Hct (39.0-53.0) % RDW (11.5-15.5) % Plt Count (150-450) k/uL PT (9.0-12.0) sec INR (<1.2) Sodium (137-145) mmol/L Carbon Dioxide (22-30) mmol/L Glucose (74-99) mg/dL POC Glucose (mg/dL) 145 H (75-99) mg/dL Total Bilirubin (0.2-1.3) mg/dL AST (17-59) U/L ALT (4-49) U/L Alkaline Phosphatase (38-126) U/L Albumin (3.5-5.0) g/dL Microbiology - Last 24 Hours (Table) 07/15/21 15:56 Blood Culture - Preliminary Blood No Growth after 48 hours Assessment and Plan Assessment: 1. Dental abscess. Dr. Valadez following. Patient remains on IV antibiotics 2. History of atrial fibrillation maintained on Coumadin 3. Known history of coronary artery disease 4. Diabetes mellitus. Will order sliding scale coverage in order hemoglobin A1c 5. History of essential hypertension 6. History of hyperlipidemia 7. History of congestive heart failure noted in 2014 with low EF. Repeat 2-D echo has been ordered 8. Ongoing nicotine dependence. Patient educated greater than 3 minutes on smoking sensation nicotine patch ordered 9. Supratherapeutic INR Coumadin currently on hold repeat INR ordered DVT prophylaxis Coumadin. GI prophylaxis Protonix Continue IV antibiotics 2-D echo ordered Repeat labs ordered
[2021-07-18 17:58] LABS: Glucose,Whole Blood 135 mg/dL (75-99)
[2021-07-18] MEDS ORDERED: WARFARIN 0.5 MG TAB PO ONE (18:00)
[2021-07-18 20:09] LABS: Glucose,Whole Blood 133 mg/dL (75-99)
[2021-07-18] MEDS: ATORVASTATIN 40 MG TAB PO SCH (20:55)
[2021-07-19] MEDS: AMPICILLIN-SULBACTAM 3 GM in SODIUM CHLORIDE 0.9% 100 ML IVPB SCH ×3 (05:38→17:46)
[2021-07-19] MEDS: INSULIN ASPART (NovoLOG) 100 UNIT/ML VIAL SQ SCH ×4 (07:18→20:37)
[2021-07-19 07:36] LABS: Glucose,Whole Blood 117 mg/dL (75-99)
[2021-07-19] MEDS: PANTOPRAZOLE 40 MG TABLET PO SCH (09:22)
[2021-07-19 09:37] LABS: INR 1.21 (0.90-1.11)
[2021-07-19] MEDS: carvediloL 12.5 MG TAB PO SCH ×2 (09:50→19:51)
[2021-07-19] MEDS: SPIRONOLACTONE 25 MG TAB PO SCH (09:51)
[2021-07-19] MEDS: lisinopriL 10 MG TAB PO SCH (09:51)
[2021-07-19] MEDS: amLODIPine 10 MG TAB PO SCH (09:51)
[2021-07-19] MEDS: FUROSEMIDE 40 MG TAB PO SCH (09:51)
[2021-07-19] MEDS: NICOTINE 14MG/24HR PATCH TRANSDERM SCH (09:54)
[2021-07-19 10:09] LABS: Basophils # (A) 0.06 X 10*3/uL (0.00-0.10); Eosinophils # (A) 0.15 X 10*3/uL (0.04-0.35); Eosinophils % (A) 2.5 %; HCT 35.1 % (39.6-50.0); HGB 11.4 g/dL (13.0-17.0); Lymphocytes # (A) 1.24 X 10*3/uL (0.90-5.00); Lymphocytes % (A) 20.7 %; MCH 29.2 pg (27.0-32.0); MCHC 32.5 g/dL (32.0-37.0); MCV 89.8 fL (80.0-97.0); Mean Platelet Volume 11.7 fL (9.5-12.2); Neutrophils # (A) 3.63 X 10*3/uL (1.80-7.70); Neutrophils % (A) 60.5 %; Platelet Count 161 X 10*3/uL (140-440); RBC 3.91 X 10*6/uL (4.40-5.60); RDW 15.6 % (11.5-14.5)
[2021-07-19] MEDS: SODIUM CHLORIDE 0.9% 1,000 ML IV SCH (10:10)
--- NOTE | 2021-07-19 12:16 | P.PN ---
Subjective Progress Note Date: 07/19/21 This is a 65-year-old male patient who presented with concerns of ongoing jaw and mouth swelling. Patient reports the symptoms have been ongoing for the past 5 days. Patient reports that last night it became increasingly more swollen and he felt like his tongue was only could not handle his oral secretions. Patient denies any previous antibiotics prior to ER. Patient does appear to have poor dental hygiene. Patient with a past medical history of atrial fibrillation in which she is maintained on Coumadin, coronary artery disease, diabetes mellitus, hyperlipidemia, hypertension and nicotine dependence. CT completed showing left maxillary sinusitis, old blowout fracture left orbit there is lucency around the left side maxillary teeth consistent with periodontal disease. Large inflammatory appearing mass in the medial aspect of the left mandible in the or for pharynx and consistent with phlegmon. Patient has been admitted. Dr. Valadez has been consulted. Patient has been started on IV antibiotics. Patient is currently resting comfortably in bed. Does report some improvement in regards to pain and swelling. Patient denies chest pain or shortness breath. Patient denies nausea vomiting or diarrhea. Patient denies any urinary burning or frequency. On 07/17/2021 patient alert and oriented 3. Patient still having significant swelling to left side of face. Antibiotics have been adjusted to Unasyn per infectious disease. INR currently elevated at 7.5. Coumadin on hold inte rventions currently on hold. 2-D echo also ordered to assess cardiac function. At this time patient denies chest pain or shortness breath. Patient denies nausea vomiting or diarrhea. Patient denies any urinary burning or frequency. White blood cell improving to 9.8 patient remains afebrile On 07/18/2021 Patient was seen and examined on the medical floor, he is alert and oriented x 3 in no distress, he denies any complaints there is no fever or chills no headache or dizziness no chest pain no shortness of breath no palpitation no cough no nausea or vomiting no abdominal pain no diarrhea no blood in the stools no burning with urination no frequency or urgency and no hematuria, there is no weakness or numbness in any of the extremities no change in vision speech or gait. At this time infection is improving continue with current IV antibiotics awaiting surgical intervention possibly tomorrow, at this time INR is subtherapeutic after receiving vitamin K will start subcu Lovenox. Will resume Coumadin after surgery. 07/19/2021 patient is alert and oriented 3. patient swelling slightly improved. Plans today for extraction of tooth and drainage per Dr. Valadez. Coumadin to resume after surgery. Patient remains on IV antibiotics. Patient denies chest pain or shortness breath. Patient denies nausea vomiting or diarrhea. Patient denies any urinary burning or frequency Objective - Vital Signs Vital signs: Vital Signs Temp 98.4 F 07/19/21 07:00 Pulse 105 H 07/19/21 07:00 Resp 16 07/19/21 08:00 BP 129/84 07/19/21 07:00 Pulse Ox 98 07/19/21 07:00 Intake & Output 07/18/21 07/19/21 07/19/21 18:59 06:59 18:59 Intake Total 180 Balance 180 Intake: Oral 180 Other: Voiding Method Toilet Toilet Toilet # Voids 4 3 # Bowel Movements 1 1 - Exam Head normocephalic. Left sided facial swelling. Poor dental hygiene Neck supple Lungs clear to auscultation bilaterally no wheezing or crackles Heart regular rate and rhythm S1-S2, no rub or gallop Abdomen is soft nontender nondistended positive bowel sounds no hepa tosplenomegaly Extremities no edema Neuro alert and orientated to 3 Results - Labs CBC & Chem 7: 07/19/21 06:03 07/18/21 05:35 Labs: Abnormal Lab Results - Last 24 Hours (Table) 07/18/21 07/18/21 07/18/21 Range/Units 12:26 17:55 20:07 RBC (4.40-5.60) X 10*6/uL Hgb (13.0-17.0) g/dL Hct (39.6-50.0) % RDW (11.5-14.5) % PT (9.9-11.9) sec INR (0.90-1.11) POC Glucose (mg/dL) 121 H 135 H 133 H (75-99) mg/dL 07/19/21 07/19/21 07/19/21 Range/Units 06:03 06:03 07:18 RBC 3.91 L (4.40-5.60) X 10*6/uL Hgb 11.4 L (13.0-17.0) g/dL Hct 35.1 L (39.6-50.0) % RDW 15.6 H (11.5-14.5) % PT 13.0 H (9.9-11.9) sec INR 1.21 H (0.90-1.11) POC Glucose (mg/dL) 117 H (75-99) mg/dL Microbiology - Last 24 Hours (Table) 07/15/21 15:56 Blood Culture - Preliminary Blood No Growth after 72 hours Assessment and Plan Assessment: 1. Dental abscess. Dr. Valadez following. Patient remains on IV antibiotics 2. History of atrial fibrillation maintained on Coumadin 3. Known history of coronary artery disease 4. Diabetes mellitus. Will order sliding scale coverage in order hemoglobin A1c 5. History of essential hypertension 6. History of hyperlipidemia 7. History of congestive heart failure noted in 2014 with low EF. Repeat 2-D echo has been ordered. 2-D echo completed showing an EF of 50-55% 8. Ongoing nicotine dependence. Patient educated greater than 3 minutes on smoking sensation nicotine patch ordered 9. Supratherapeutic INR Coumadin currently on hold repeat INR ordered. Coumadin to resume after surgery DVT prophylaxis Coumadin. GI prophylaxis Protonix Continue IV antibiotics Plans for extraction and drainage of tooth abscess today at 07/19/2021 Repeat labs ordered
[2021-07-19 12:44] LABS: African American GFR (CKD) 104.2 (60.0-200.0); Albumin 3.6 g/dL (3.8-4.9); Albumin/Globulin Ratio 1.06 (1.60-3.17); Anion Gap 12.7 mmol/L (4.00-12.00); BUN/Creat Ratio 15.67 Ratio (12.00-20.00); Blood Urea Nitrogen 14.1 mg/dL (9.0-27.0); Carbon Dioxide 20.3 mmol/L (21.6-31.8); Globulin 3.4 g/dL (1.6-3.3); Non-African American GFR(CKD) 89.9 (60.0-200.0); Potassium 3.9 mmol/L (3.5-5.5); Total Bilirubin 2.2 mg/dL (0.30-1.20)
[2021-07-19 13:02] LABS: Glucose,Whole Blood 119 mg/dL (75-99)
[2021-07-19] MEDS ORDERED: IV FLUID CONTINUATION 1,000 ML IV ONE (13:23)
[2021-07-19] MEDS ORDERED: MIDAZOLAM 2 MG/2 ML VIAL ONE (14:00)
[2021-07-19] MEDS ORDERED: LIDOCAINE 1% INJ 10MG/ML (20 ML MDV) ONE (14:00)
[2021-07-19] MEDS ORDERED: fentaNYL (PF) 50 MCG/ML 2 ML AMP ONE (14:00)
[2021-07-19] MEDS ORDERED: PROPOFOL 10 MG/ML 20 ML VIAL IV ONE (14:00)
[2021-07-19] MEDS ORDERED: SUCCINYLCHOLINE CHLORIDE 100 MG/5 ML SYR IV ONE (14:00)
[2021-07-19] MEDS ORDERED: PHENYLEPHRINE-0.9% NACL SYG 1,000 MCG/10 ML SYRINGE ONE (14:00)
--- NOTE | 2021-07-19 14:09 | P.PN ---
Progress Note - Text Progress Note Date: 07/19/21 Preoperative note Patient evaluated in preoperative holding area. Patient appears much more comf ortable due to decreased swelling of the neck. It seems to be localized to the submandibular and some submental region. The floor the mouth is less elevated with still some redness and swelling. The main teeth the patient's reports painful R 17 and 18. Due to the patient's unknown reason for Coumadin elevation, the decision to remove any other grossly carious teeth seems sound. Upon evaluation teeth numbers 01/19/2015 extreme 17 and 26 were all deemed nonrestorable either due to dental decay or periodontal disease or both. Consent was reviewed with the patient including but not limited to bleeding now or later due to Coumadin. Pain infection swelling. Also need for additional procedures. The patient was informed that he has periodontal disease of all of his teeth but with treatment some teeth may be salvageable. Patient understood these risks and agreed to proceed with the extractions. Also discussed was the need for an incision and drainage help reduce the amount of swelling in his neck. Some mandibular swelling is still approximately 1 cm x 1.5 cm and fluctuant in nature. This would include drainage from the extraoral root with external drain left in place for anywhere from 24 hours to 3-4 days. Patient understood these risks and agreed to proceed with the procedure.
[2021-07-19] MEDS ORDERED: LIDOCAINE 2%-EPI 1:100,000 20 ML VIAL SUBMUCOSAL ONE ×2 (14:23)
--- NOTE | 2021-07-19 14:50 | P.OP ---
Date of Procedure: 07/19/21 Preoperative Diagnosis: Dental abscess of left submandibular space and submental space History of supratherapeutic Coumadin levels Postoperative Diagnosis: Same Procedure(s) Performed: Surgical extraction of teeth letters 5,13,15,16, 17,18 and 26. Anesthesia: KAYLIA Surgeon: Bijan Valadez Estimated Blood Loss (ml): 4 IV fluids (ml): 100 Urine output (ml): 0 Pathology: none sent Condition: stable Disposition: PACU Indications for Procedure: Patient presented to the emergency room with swelling and pain of the lower left approximately 5 days ago. His Coumadin levels were noted to be super therapeutic pushing the management towards the medical intervention. Patient responded slowly to IV antibiotic therapy. Patient today had an improved somewhat overnight but still had one by one and a half centimeters of submandibular and submental swelling. Evaluation of his teeth confirmed that 17 and 18 were still primary problems but due to his as yet undiagnosed supratherapeutic Coumadin the decision was made to extract other grossly decayed teeth. Operative Findings: Not Description of Procedure: Patient was taken to the operating room and the intubated orally per the anesthesia record. Patient was prepped and draped in usual fashion for clean contaminated oral surgery. Approximately 9 mL of 2% lidocaine with epinephrine was administered first in the neck and then in the mouth to help with postoperative pain control. Patient's neck wound was cleaned with Betadine and a 1 mL skin incision was made with blunt dissection up to the body the mandible. No purulent drainage was noted but cultures were taken. A drain tube was left in place for any future drainage. A bite block and throat pack were placed. And then the surgeon addressed tooth 5 small buccal flap small amount of bone the tooth was luxated and delivered without difficulty. Tooth roots numbers 1315 and 16 also removed in a similar manner. The incision between 15 and 16 was closed with 40 chromic gut. Tooth 17 and 18 were approached the buccal flap small amount of bone removed luxated and delivered without difficulty. Tooth #26 was then approached with small buccal flap and a small amount of bone. The tooth was then luxated and delivered without difficulty. Bite block and throat pack were removed. Patient was then awaken and taken to the postoperative recovery room awaiting transfer back to the floor.
--- NOTE | 2021-07-19 15:11 | CDI ---
Documentation Clarification Form Date: 07/19/2021 02:54:52 PM From: Brianna Martinez RN, CCDS Admit Date: 07/17/2021 03:04:00 PM Patient Name: Jett Ornelas Visit Number: [id number] Discharge Date: ATTENTION: The Clinical Documentation Specialists (CDI) and [facility] Coding Staff appreciate your assistance in clarifying documentation. Please respond to the clarification below the line at the bottom and electronically sign. The CDI & [facility] Coding staff will review the response and follow-up if needed. Please note: Queries are made part of the Legal Health Record. If you have any questions, please contact the author of this message via ITS. Dr. Raffi Quintero Your patient has the documented diagnosis of unspecified CHF in the H/P and subsequent progress notes. Additional information regarding the type, acuity of CHF is requested. History/Risk Factors: Atrial Fibrillation, CHF Clinical Indicators: 65-year-old male with history of congestive heart failure with ongoing treatment. 07/15 (22:48) VS/Pulse OX: 108/67 104 20 97.1 93 % RA 07/17 Echocardiogram Results: Overall left ventricular systolic function is low- normal with, an EF between 50-55 % Treatment: Lasix 40 MG PO Daily, Coreg 25 PO BID Zestril 10 MG PO Daily Norvasc 10 MG PO Daily In your professional opinion, can you please clarify the acuity and type of CHF if known? [ x ] Chronic Diastolic Heart Failure (preserved EF) [ ] Chronic Systolic & Diastolic Heart Failure [ ] Other, please specify [ ] Unable to determine (Template Last Revised: October 2020) MTDD
--- NOTE | 2021-07-19 16:22 | PN ---
PROGRESS NOTE DATE OF SERVICE: 07/19/2021 REASON FOR FOLLOWUP: Left lower jaw abscess and infected tooth. INTERVAL HISTORY: The patient is afebrile. The patient is breathing comfortably. The patient denies having any chest pain, shortness of breath or cough. No nausea or vomiting. No abdominal pain or diarrhea. PHYSICAL EXAMINATION: Blood pressure is 139/76, pulse of 88, temperature 97.1. He is 98% on room air. General description is a middle-aged male up in the bed in no distress. Respiratory system: Unlabored breathing, clear to auscultation anteriorly. Heart S1, S2. Regular rate and rhythm. Abdomen soft, no tenderness. Extremities no edema of the feet. DIAGNOSTIC IMPRESSION AND PLAN: Patient with left lower jaw abscess and cellulitis. Patient is slowly clinically responding to Unasyn. That will be continued while monitoring his clinical course closely. Continue with supportive care. MMODL / IJN: [id number] /
[2021-07-19 17:41] LABS: Glucose,Whole Blood 147 mg/dL (75-99)
[2021-07-19] MEDS: ENOXAPARIN 40 MG/0.4 ML SYRINGE SQ SCH (17:47)
[2021-07-19] MEDS ORDERED: WARFARIN 10 MG TAB PO ONE (18:00)
[2021-07-19] MEDS: methylPREDNISolone SOD SUCCI 40 MG/ML 1 ML VIAL IV SCH (18:26)
[2021-07-19] MEDS: diphenhydrAMINE 50 MG/ML 1 ML VIAL IVP PRN (18:26)
[2021-07-19] MEDS: ATORVASTATIN 40 MG TAB PO SCH (19:51)
[2021-07-19 20:34] LABS: Glucose,Whole Blood 159 mg/dL (75-99)
[2021-07-20] MEDS: diphenhydrAMINE 50 MG/ML 1 ML VIAL IVP PRN ×4 (00:48→17:51)
[2021-07-20] MEDS: methylPREDNISolone SOD SUCCI 40 MG/ML 1 ML VIAL IV SCH ×4 (00:48→17:51)
[2021-07-20] MEDS: AMPICILLIN-SULBACTAM 3 GM in SODIUM CHLORIDE 0.9% 100 ML IVPB SCH ×4 (00:49→18:17)
[2021-07-20 07:38] LABS: Glucose,Whole Blood 196 mg/dL (75-99)
[2021-07-20 08:08] LABS: INR 1.2 (<1.2); Prothrombin Time 12.8 sec (9.0-12.0)
[2021-07-20] MEDS: INSULIN ASPART (NovoLOG) 100 UNIT/ML VIAL SQ SCH ×4 (08:52→22:14)
[2021-07-20] MEDS: NICOTINE 14MG/24HR PATCH TRANSDERM SCH (08:54)
[2021-07-20] MEDS: amLODIPine 10 MG TAB PO SCH (08:54)
[2021-07-20] MEDS: PANTOPRAZOLE 40 MG TABLET PO SCH (08:54)
[2021-07-20] MEDS: FUROSEMIDE 40 MG TAB PO SCH (08:55)
[2021-07-20] MEDS: carvediloL 12.5 MG TAB PO SCH ×2 (08:55→20:06)
[2021-07-20] MEDS: lisinopriL 10 MG TAB PO SCH (08:56)
[2021-07-20] MEDS: SPIRONOLACTONE 25 MG TAB PO SCH (08:56)
[2021-07-20 11:50] LABS: Basophils # (A) 0.01 X 10*3/uL (0.00-0.10); Basophils % (A) 0.2 %; Eosinophils # (A) 0 X 10*3/uL (0.04-0.35); Eosinophils % (A) 0 %; HCT 39.7 % (39.6-50.0); HGB 12.8 g/dL (13.0-17.0); Lymphocytes # (A) 0.58 X 10*3/uL (0.90-5.00); Lymphocytes % (A) 9.4 %; MCH 28.5 pg (27.0-32.0); MCHC 32.2 g/dL (32.0-37.0); MCV 88.4 fL (80.0-97.0); Mean Platelet Volume 11.7 fL (9.5-12.2); Monocytes # (A) 0.13 X 10*3/uL (0.20-1.00); Monocytes % (A) 2.1 %; Neutrophils # (A) 5.41 X 10*3/uL (1.80-7.70); Neutrophils % (A) 87.7 %; Platelet Count 203 X 10*3/uL (140-440); RBC 4.49 X 10*6/uL (4.40-5.60); RDW 15.2 % (11.5-14.5); WBC 6.17 X 10*3/uL (4.50-10.00)
[2021-07-20 12:40] LABS: Glucose,Whole Blood 180 mg/dL (75-99)
[2021-07-20 13:52] LABS: African American GFR (CKD) 104.2 (60.0-200.0); Albumin 4.1 g/dL (3.8-4.9); Albumin/Globulin Ratio 1.05 (1.60-3.17); Anion Gap 15.7 mmol/L (4.00-12.00); BUN/Creat Ratio 17.89 Ratio (12.00-20.00); Blood Urea Nitrogen 16.1 mg/dL (9.0-27.0); Calcium 9.6 mg/dL (8.7-10.3); Carbon Dioxide 19.3 mmol/L (21.6-31.8); Globulin 3.9 g/dL (1.6-3.3); Non-African American GFR(CKD) 89.9 (60.0-200.0); Total Bilirubin 1.9 mg/dL (0.30-1.20)
[2021-07-20] MEDS: SODIUM CHLORIDE 0.9% 1,000 ML IV SCH (17:46)
[2021-07-20 17:51] LABS: Glucose,Whole Blood 165 mg/dL (75-99)
[2021-07-20] MEDS ORDERED: WARFARIN 10 MG TAB PO ONE (18:00)
--- NOTE | 2021-07-20 18:01 | PCN ---
PROCEDURE NOTE DATE OF SERVICE: 07/20/2021 The patient was seen this morning up in bed with a nurse aide at his bedside. Pleasant, comfortable. The patient had perioral swelling, which I had been notified of last night. Last night about 6:00 or a little after his nurse called me and said that she had noticed some lip swelling on the left, and it seemed to be going over to his right side. She felt that this was not related to his dental surgery, and I agreed. I stopped by the hospital, as I was nearby, and in the few minutes that I had spoken with her, she came in and said it had gotten worse. He indeed did have firm swollen lips, top and bottom, left and right. No airway compromise. No floor of mouth swelling and no posterior pharyngeal swelling. This to me seemed like an allergic reaction. At that time I recommended she give him Benadryl IV STAT and give him continuous pulse oximetry overnight and also contact his medical physician who was taking care of him in the hospital to see if steroids were indicated. We questioned Jett about anything he might have eaten lately or any allergies that he knew of, and he did not know of any allergies. He had had a few puddings immediately postoperatively, and so it is possible he had an allergic reaction to the food. Denied any shrimp or iodine allergies, as we used Betadine on his skin during the prep, but that was not used in this mouth. The iodine areas seemed to be non-swollen and it was limited to the perioral region. That was last night. This morning he is still swollen, slightly improved but not much, but still no airway compromise or difficulty swallowing. In fact, his mouth swelling and neck swelling seem to be improved. The neck drain was putting out 2 to 3 mL of bloody pus and the drain was stable and well dressed. Intraorally he had no bleeding. He did have one liver clot that was easily removed from the upper left and gauze placed in there. The bleeding appeared to be stopped by the time I left the room. Otherwise, no complaints for Mr. Ornelas, and plan to remove the drain tomorrow if it continues to slow down. MMODL / IJN: [id number] /
[2021-07-20] MEDS: ENOXAPARIN 40 MG/0.4 ML SYRINGE SQ SCH (18:03)
--- NOTE | 2021-07-20 18:11 | P.PN ---
Subjective Progress Note Date: 07/20/21 This is a 65-year-old male patient who presented with concerns of ongoing jaw and mouth swelling. Patient reports the symptoms have been ongoing for the past 5 days. Patient reports that last night it became increasingly more swollen and he felt like his tongue was only could not handle his oral secretions. Patient denies any previous antibiotics prior to ER. Patient does appear to have poor dental hygiene. Patient with a past medical history of atrial fibrillation in which she is maintained on Coumadin, coronary artery disease, diabetes mellitus, hyperlipidemia, hypertension and nicotine dependence. CT completed showing left maxillary sinusitis, old blowout fracture left orbit there is lucency around the left side maxillary teeth consistent with periodontal disease. Large inflammatory appearing mass in the medial aspect of the left mandible in the or for pharynx and consistent with phlegmon. Patient has been admitted. Dr. Valadez has been consulted. Patient has been started on IV antibiotics. Patient is currently resting comfortably in bed. Does report some improvement in regards to pain and swelling. Patient denies chest pain or shortness breath. Patient denies nausea vomiting or diarrhea. Patient denies any urinary burning or frequency. On 07/17/2021 patient alert and oriented 3. Patient still having significant swelling to left side of face. Antibiotics have been adjusted to Unasyn per infectious disease. INR currently elevated at 7.5. Coumadin on hold inte rventions currently on hold. 2-D echo also ordered to assess cardiac function. At this time patient denies chest pain or shortness breath. Patient denies nausea vomiting or diarrhea. Patient denies any urinary burning or frequency. White blood cell improving to 9.8 patient remains afebrile On 07/18/2021 Patient was seen and examined on the medical floor, he is alert and oriented x 3 in no distress, he denies any complaints there is no fever or chills no headache or dizziness no chest pain no shortness of breath no palpitation no cough no nausea or vomiting no abdominal pain no diarrhea no blood in the stools no burning with urination no frequency or urgency and no hematuria, there is no weakness or numbness in any of the extremities no change in vision speech or gait. At this time infection is improving continue with current IV antibiotics awaiting surgical intervention possibly tomorrow, at this time INR is subtherapeutic after receiving vitamin K will start subcu Lovenox. Will resume Coumadin after surgery. 07/19/2021 patient is alert and oriented 3. patient swelling slightly improved. Plans today for extraction of tooth and drainage per Dr. Valadez. Coumadin to resume after surgery. Patient remains on IV antibiotics. Patient denies chest pain or shortness breath. Patient denies nausea vomiting or diarrhea. Patient denies any urinary burning or frequency. On 07/20/2021 patient was seen and examined on the medical floor he is alert and oriented 3 in no apparent distress there is no fever or chills no headache or dizziness no chest pain no shortness of breath no cough no nausea or vomiting no abdominal pain no diarrhea and no urinary symptoms. Patient underwent teeth extractions yesterday, he was doing well for couple of hours postoperatively, then he started having swelling and numbness feeling in his face, he was started on IV Solu-Medrol, he continues to be on IV antibiotics, today I will discontinue lisinopril in case this is an episode of angioedema, will monitor closely Objective - Vital Signs Vital signs: Vital Signs Temp 97.9 F 07/20/21 14:24 Pulse 100 07/20/21 15:25 Resp 18 07/20/21 15:25 BP 110/73 07/20/21 14:24 Pulse Ox 97 07/20/21 14:24 Intake & Output 07/19/21 07/20/21 07/20/21 18:59 06:59 18:59 Intake Total 1180 118 Balance 1180 118 Weight 87.09 kg Intake: IV 840 Sodium Chloride 0.9% 1, 140 000 ml @ 20 mls/hr IV . Q24H [facility] Rx#:[id number] Intake, IV Titration 100 Amount Ampicillin-Sulbactam 3 gm 100 In Sodium Chloride 0.9% 100 ml @ 200 mls/hr IVPB Q6HR [facility]EE Rx#:[id number] Oral 240 118 Other: Voiding Method Toilet Toilet Toilet # Voids 3 1 - Exam Head normocephalic. Left sided facial swelling. Poor dental hygiene Neck supple Lungs clear to auscultation bilaterally no wheezing or crackles Heart regular rate and rhythm S1-S2, no rub or gallop Abdomen is soft nontender nondistended positive bowel sounds no hepatosplenomegaly Extremities no edema Neuro alert and orientated to 3 Results - Labs CBC & Chem 7: 07/20/21 06:36 07/20/21 06:36 Labs: Abnormal Lab Results - Last 24 Hours (Table) 07/19/21 07/19/21 07/20/21 Range/Units 17:40 20:19 06:36 Hgb (13.0-17.0) g/dL RDW (11.5-14.5) % Lymphocytes # (0.90-5.00) X 10*3/uL Monocytes # (0.20-1.00) X 10*3/uL Eosinophils # (0.04-0.35) X 10*3/uL PT 12.8 H (9.0-12.0) sec INR 1.2 H (<1.2) Carbon Dioxide (21.6-31.8) mmol/L Anion Gap (4.00-12.00) mmol/L Glucose (70-110) mg/dL POC Glucose (mg/dL) 147 H 159 H (75-99) mg/dL Total Bilirubin (0.30-1.20) mg/dL AST (14-35) U/L ALT (10-49) U/L Alkaline Phosphatase (41-126) U/L Globulin (1.6-3.3) g/dL Albumin/Globulin Ratio (1.60-3.17) g/dL 07/20/21 07/20/21 07/20/21 Range/Units 06:36 06:36 07:36 Hgb 12.8 L (13.0-17.0) g/dL RDW 15.2 H (11.5-14.5) % Lymphocytes # 0.58 L (0.90-5.00) X 10*3/uL Monocytes # 0.13 L (0.20-1.00) X 10*3/uL Eosinophils # 0 L (0.04-0.35) X 10*3/uL PT (9.0-12.0) sec INR (<1.2) Carbon Dioxide 19.3 L (21.6-31.8) mmol/L Anion Gap 15.70 H (4.00-12.00) mmol/L Glucose 209 H (70-110) mg/dL POC Glucose (mg/dL) 196 H (75-99) mg/dL Total Bilirubin 1.90 H (0.30-1.20) mg/dL AST 71 H (14-35) U/L ALT 108 H (10-49) U/L Alkaline Phosphatase 204 H (41-126) U/L Globulin 3.9 H (1.6-3.3) g/dL Albumin/Globulin Ratio 1.05 L (1.60-3.17) g/dL 07/20/21 Range/Units 12:38 Hgb (13.0-17.0) g/dL RDW (11.5-14.5) % Lymphocytes # (0.90-5.00) X 10*3/uL Monocytes # (0.20-1.00) X 10*3/uL Eosinophils # (0.04-0.35) X 10*3/uL PT (9.0-12.0) sec INR (<1.2) Carbon Dioxide (21.6-31.8) mmol/L Anion Gap (4.00-12.00) mmol/L Glucose (70-110) mg/dL POC Glucose (mg/dL) 180 H (75-99) mg/dL Total Bilirubin (0.30-1.20) mg/dL AST (14-35) U/L ALT (10-49) U/L Alkaline Phosphatase (41-126) U/L Globulin (1.6-3.3) g/dL Albumin/Globulin Ratio (1.60-3.17) g/dL Microbiology - Last 24 Hours (Table) 07/19/21 12:00 Gram Stain - Preliminary Neck Wound Culture - Preliminary 07/19/21 12:00 Anaerobic Culture - Preliminary Neck 07/15/21 15:56 Blood Culture - Preliminary Blood No Growth after 96 hours Assessment and Plan Assessment: 1. Dental abscess. Dr. Valadez following. Patient remains on IV antibiotics 2. History of atrial fibrillation maintained on Coumadin 3. Known history of coronary artery disease 4. Diabetes mellitus. Will order sliding scale coverage in order hemoglobin A1c 5. History of essential hypertension 6. History of hyperlipidemia 7. History of congestive heart failure noted in 2014 with low EF. Repeat 2-D echo has been ordered. 2-D echo completed showing an EF of 50-55% 8. Ongoing nicotine dependence. Patient educated greater than 3 minutes on smoking sensation nicotine patch ordered 9. Supratherapeutic INR Coumadin currently on hold repeat INR ordered. Coumadin to resume after surgery DVT prophylaxis Coumadin. GI prophylaxis Protonix Continue IV antibiotics Plans for extraction and drainage of tooth abscess today at 07/19/2021 Repeat labs ordered
[2021-07-20] MEDS: ATORVASTATIN 40 MG TAB PO SCH (20:05)
[2021-07-20 21:09] LABS: Glucose,Whole Blood 244 mg/dL (75-99)
--- NOTE | 2021-07-20 23:38 | PN ---
PROGRESS NOTE DATE OF SERVICE: 07/20/2021 REASON FOR FOLLOWUP: Left lower jaw abscess and cellulitis. INTERVAL HISTORY: The patient is afebrile. The patient is currently breathing comfortably. Overall pain and discomfort to the left lower jaw has decreased. The patient did have some periorbital swelling last night steroids and Peridex. Denies having any itching. No shortness of breath. No vomiting. No abdominal pain or diarrhea. PHYSICAL EXAMINATION: Blood pressure 124/74 with a pulse of 104, temperature 97.8. He is 96% on room air. General description is a middle-aged male up in the bed in no distress. HEENT examination: Left lower jaw swelling and redness has decreased. Lungs unlabored breathing clear to auscultation. Heart S1, S2. Regular rate and rhythm. Abdomen soft, no tenderness. LABS: Hemoglobin is 12.8, white count 6.17, creatinine 0.9. DIAGNOSTIC IMPRESSION AND PLAN: Patient with left lower jaw abscess and cellulitis, status post drainage. Cultures are pending. Patient to continue with Unasyn while inpatient and we will monitor his clinical course closely. Continue with supportive care. MMODL / IJN: [id number] /
[2021-07-21] MEDS: AMPICILLIN-SULBACTAM 3 GM in SODIUM CHLORIDE 0.9% 100 ML IVPB SCH ×2 (00:32→05:55)
[2021-07-21] MEDS: methylPREDNISolone SOD SUCCI 40 MG/ML 1 ML VIAL IV SCH ×2 (00:33→05:55)
[2021-07-21] MEDS: diphenhydrAMINE 50 MG/ML 1 ML VIAL IVP PRN (00:33)
[2021-07-21 07:07] VITALS: BP 146/84; PULSE 107; RESP 17; TEMP 97.6
[2021-07-21 07:53] LABS: Glucose,Whole Blood 193 mg/dL (75-99)
--- NOTE | 2021-07-21 08:01 | P.PN ---
Subjective Progress Note Date: 07/21/21 Principal diagnosis: Dental abscess Supratherapeutic Coumadin Patient up and bathroom doing well just out of the shower desires to be discharged. Reports no mouth pain. NEck Swelling improved Objective - Vital Signs Vital signs: Vital Signs Temp 97.6 F 07/21/21 07:00 Pulse 107 H 07/21/21 07:00 Resp 17 07/21/21 07:00 BP 146/84 07/21/21 07:00 Pulse Ox 97 07/21/21 07:00 Intake & Output 07/20/21 07/21/21 07/21/21 18:59 06:59 18:59 Intake Total 118 Balance 118 Intake: Oral 118 Other: Voiding Method Toilet Toilet # Voids 1 2 - Exam Limited physical exam shows no intraoral bleeding lingual gutter no swelling or mouth not elevated. Mouth opening within normal limits. Posterior oropharynx visualized and nonswollen.. Oral swelling has improved perhaps still slightly and the upper lip. Extraorally the drain is stopped putting out any purulence slight bleeding around the drain opening. - Labs CBC & Chem 7: 07/20/21 06:36 07/20/21 06:36 Labs: Abnormal Lab Results - Last 24 Hours (Table) 07/20/21 07/20/21 07/20/21 Range/Units 06:36 06:36 06:36 Hgb 12.8 L (13.0-17.0) g/dL RDW 15.2 H (11.5-14.5) % Lymphocytes # 0.58 L (0.90-5.00) X 10*3/uL Monocytes # 0.13 L (0.20-1.00) X 10*3/uL Eosinophils # 0 L (0.04-0.35) X 10*3/uL PT 12.8 H (9.0-12.0) sec INR 1.2 H (<1.2) Carbon Dioxide 19.3 L (21.6-31.8) mmol/L Anion Gap 15.70 H (4.00-12.00) mmol/L Glucose 209 H (70-110) mg/dL POC Glucose (mg/dL) (75-99) mg/dL Total Bilirubin 1.90 H (0.30-1.20) mg/dL AST 71 H (14-35) U/L ALT 108 H (10-49) U/L Alkaline Phosphatase 204 H (41-126) U/L Globulin 3.9 H (1.6-3.3) g/dL Albumin/Globulin Ratio 1.05 L (1.60-3.17) g/dL 07/20/21 07/20/21 07/20/21 Range/Units 12:38 17:49 21:08 Hgb (13.0-17.0) g/dL RDW (11.5-14.5) % Lymphocytes # (0.90-5.00) X 10*3/uL Monocytes # (0.20-1.00) X 10*3/uL Eosinophils # (0.04-0.35) X 10*3/uL PT (9.0-12.0) sec INR (<1.2) Carbon Dioxide (21.6-31.8) mmol/L Anion Gap (4.00-12.00) mmol/L Glucose (70-110) mg/dL POC Glucose (mg/dL) 180 H 165 H 244 H (75-99) mg/dL Total Bilirubin (0.30-1.20) mg/dL AST (14-35) U/L ALT (10-49) U/L Alkaline Phosphatase (41-126) U/L Globulin (1.6-3.3) g/dL Albumin/Globulin Ratio (1.60-3.17) g/dL 07/21/21 Range/Units 07:52 Hgb (13.0-17.0) g/dL RDW (11.5-14.5) % Lymphocytes # (0.90-5.00) X 10*3/uL Monocytes # (0.20-1.00) X 10*3/uL Eosinophils # (0.04-0.35) X 10*3/uL PT (9.0-12.0) sec INR (<1.2) Carbon Dioxide (21.6-31.8) mmol/L Anion Gap (4.00-12.00) mmol/L Glucose (70-110) mg/dL POC Glucose (mg/dL) 193 H (75-99) mg/dL Total Bilirubin (0.30-1.20) mg/dL AST (14-35) U/L ALT (10-49) U/L Alkaline Phosphatase (41-126) U/L Globulin (1.6-3.3) g/dL Albumin/Globulin Ratio (1.60-3.17) g/dL Microbiology - Last 24 Hours (Table) 07/19/21 12:00 Gram Stain - Preliminary Neck Wound Culture - Preliminary 07/15/21 15:56 Blood Culture - Preliminary Blood No Growth after 120 hours Microbiology shows no organisms on the Gram stain awaiting final results Assessment and Plan Assessment: Abscess resolving. Drain no longer putting out purulence. Plan: Due to patient's clinical improvement removal of drain was done without diffic ulty. Patient is cleared for discharge from a oral surgery standpoint. Recommend follow-up in my office in 1 week. Contact information given to the patient.
[2021-07-21 08:58] LABS: INR 1.6 (<1.2); Prothrombin Time 15.6 sec (9.0-12.0)
[2021-07-21] MEDS: INSULIN ASPART (NovoLOG) 100 UNIT/ML VIAL SQ SCH (09:05)
[2021-07-21] MEDS: carvediloL 12.5 MG TAB PO SCH (09:06)
[2021-07-21] MEDS: PANTOPRAZOLE 40 MG TABLET PO SCH (09:06)
[2021-07-21] MEDS: FUROSEMIDE 40 MG TAB PO SCH (09:06)
[2021-07-21] MEDS: amLODIPine 10 MG TAB PO SCH (09:06)
[2021-07-21] MEDS: NICOTINE 14MG/24HR PATCH TRANSDERM SCH (09:07)
[2021-07-21] MEDS: SPIRONOLACTONE 25 MG TAB PO SCH (09:07)
--- NOTE | 2021-07-21 11:06 | P.DS ---
Providers Date of admission: 07/17/21 15:04 Expected date of discharge: 07/21/21 Attending physician: Raffi Quintero Consults: 07/15/21 18:54 Consult Physician Urgent Consulting Provider: Bijan Valadez Consult Reason/Comments: dental abscess Do you want consulting provider notified?: Yes 07/16/21 11:07 Consult Physician Routine Consulting Provider: Conchita Carrera Consult Reason/Comments: dental abcess Do you want consulting provider notified?: Yes Primary care physician: Barbara Hampton Hospital Course: Discharge diagnosis 1. Dental abscess. Dr. Valadez following. Patient remains on IV antibiotics. Status post extraction and drainage of abscess 2. History of atrial fibrillation maintained on Coumadin 3. Known history of coronary artery disease 4. Diabetes mellitus. Will order sliding scale coverage in order hemoglobin A1c 5. History of essential hypertension 6. History of hyperlipidemia 7. History of congestive heart failure noted in 2014 with low EF. Repeat 2-D echo has been ordered. 2-D echo completed showing an EF of 50-55% 8. Ongoing nicotine dependence. Patient educated greater than 3 minutes on smoking sensation nicotine patch ordered 9. Supratherapeutic INR Coumadin currently on hold repeat INR ordered. Coumadin to resume after surgery Hospital course This is a 65-year-old male patient who presented with concerns of ongoing jaw and mouth swelling. Patient reports the symptoms have been ongoing for the past 5 days. Patient reports that last night it became increasingly more swollen and he felt like his tongue was only could not handle his oral secretions. Patient denies any previous antibiotics prior to ER. Patient does appear to have poor dental hygiene. Patient with a past medical history of atrial fibrillation in which she is maintained on Coumadin, coronary artery disease, diabetes mellitus, hyperlipidemia, hypertension and nicotine dependence. CT completed showing left maxillary sinusitis, old blowout fracture left orbit there is lucency around the left side maxillary teeth consistent with periodontal disease. Large inflammatory appearing mass in the medial aspect of the left mandible in the or for pharynx and consistent with phlegmon. Patient has been admitted. Dr. Valadez has been consulted. Patient has been started on IV antibiotics. Patient is currently resting comfortably in bed. Does report some improvement in regards to pain and swelling. Patient denies chest pain or shortness breath. Patient denies nausea vomiting or diarrhea. Patient denies any urinary burning or frequency. On 07/17/2021 patient alert and oriented 3. Patient still having significant swelling to left side of face. Antibiotics have been adjusted to Unasyn per infectious disease. INR currently elevated at 7.5. Coumadin on hold interventions currently on hold. 2-D echo also ordered to assess cardiac function. At this time patient denies chest pain or shortness breath. Patient denies nausea vomiting or diarrhea. Patient denies any urinary burning or frequency. White blood cell improving to 9.8 patient remains afebrile On 07/18/2021 Patient was seen and examined on the medical floor, he is alert and oriented x 3 in no distress, he denies any complaints there is no fever or chills no headache or dizziness no chest pain no shortness of breath no palpitation no cough no nausea or vomiting no abdominal pain no diarrhea no blood in the stools no burning with urination no frequency or urgency and no hematuria, there is no weakness or numbness in any of the extremities no change in vision speech or gait. At this time infection is improving continue with current IV antibiotics awaiting surgical intervention possibly tomorrow, at this time INR is subtherapeutic after receiving vitamin K will start subcu Lovenox. Will resume Coumadin after surgery. 07/19/2021 patient is alert and oriented 3. patient swelling slightly improved. Plans today for extraction of tooth and drainage per Dr. Valadez. Coumadin to resume after surgery. Patient remains on IV antibiotics. Patient denies chest pain or shortness breath. Patient denies nausea vomiting or diarrhea. Patient denies any urinary burning or frequency. On 07/20/2021 patient was seen and examined on the medical floor he is alert and oriented 3 in no apparent distress there is no fever or chills no headache or dizziness no chest pain no shortness of breath no cough no nausea or vomiting no abdominal pain no diarrhea and no urinary symptoms. Patient underwent teeth ex tractions yesterday, he was doing well for couple of hours postoperatively, then he started having swelling and numbness feeling in his face, he was started on IV Solu-Medrol, he continues to be on IV antibiotics, today I will discontinue lisinopril in case this is an episode of angioedema, will monitor closely On 07/21/2021 patient alert and oriented 3. Patient eager to be DC'd home. Patient has been cleared for surgery from Dr. Valadez. Edema has significantly improved. Discussed case with infectious disease patient to receive last dose of IV antibiotics at noon over discharged on Augmentin for 14 days. Patient's NICKI inhibitor was DC'd with concerns of possible angioedema. This will need follow-up with PCP in regards to restarting nicki or arb due to known chronic conditions. Patient will be DC'd on prednisone taper. Patient to follow-up PCP consulted and provided for further management Patient Condition at Discharge: Stable Plan - Discharge Summary Discharge Rx Participant: No New Discharge Prescriptions: New Amoxicillin/Potassium Clav [Augmentin 875-125 Tablet] 1 tab PO Q12HR 14 Days #28 tab Nicotine 14Mg/24Hr Patch [Habitrol] 1 patch TRANSDERM DAILY 14 Days #14 patch predniSONE 10 mg PO DIRECTED 14 Days #21 tab Continue Spironolactone [Aldactone] 25 mg PO DAILY #30 tab Atorvastatin [Lipitor] 40 mg PO HS Warfarin [Coumadin] 10 mg PO HS amLODIPine [Norvasc] 10 mg PO DAILY Carvedilol [Coreg] 25 mg PO BID Furosemide [Lasix] 40 mg PO DAILY Discontinued lisinopriL [Zestril] 10 mg PO DAILY #30 tab Discharge Medication List Spironolactone [Aldactone] 25 mg PO DAILY #30 tab 01/31/15 [Rx] Atorvastatin [Lipitor] 40 mg PO HS 07/15/21 [History] Carvedilol [Coreg] 25 mg PO BID 07/15/21 [History] Furosemide [Lasix] 40 mg PO DAILY 07/15/21 [History] Warfarin [Coumadin] 10 mg PO HS 07/15/21 [History] amLODIPine [Norvasc] 10 mg PO DAILY 07/15/21 [History] Amoxicillin/Potassium Clav [Augmentin 875-125 Tablet] 1 tab PO Q12HR 14 Days #28 tab 07/21/21 [Rx] Nicotine 14Mg/24Hr Patch [Habitrol] 1 patch TRANSDERM DAILY 14 Days #14 patch 07/21/21 [Rx] predniSONE 10 mg PO DIRECTED 14 Days #21 tab 07/21/21 [Rx] Follow up Appointment(s)/Referral(s): Barbara Hampton MD [Primary Care Provider] - 1-2 days Conchita Carrera MD [STAFF PHYSICIAN] - 1 Week Activity/Diet/Wound Care/Special Instructions: Activity as tolerated Diet heart healthy Discharge Disposition: HOME SELF-CARE
== END 2021-07-21 12:15 | disposition home or self-care (01) | DRG 158 ==
LOC: EC 15:32 → 6NMEDSUR 18:23 → OBSVTOIN 07-17 15:04
PROVIDERS: ADMIT Internal Medicine; ATTEND Internal Medicine
PROC: 0CTW0Z1 Resection of Upper Tooth, Multiple, Open Approach (ICD-10-PCS; 2021-07-19)
PROC: 0CTX0Z1 Resection of Lower Tooth, Multiple, Open Approach (ICD-10-PCS; principal; 2021-07-19 14:00)
DX: K12.2 Cellulitis and abscess of mouth (principal); I50.32 Chronic diastolic (congestive) heart failure; D69.6 Thrombocytopenia, unspecified; E11.9 Type 2 diabetes mellitus without complications; E78.5 Hyperlipidemia, unspecified; F17.200 Nicotine dependence, unspecified, uncomplicated; I50.9 Heart failure, unspecified; I11.0 Hypertensive heart disease with heart failure; I25.10 Atherosclerotic heart disease of native coronary artery without angina pectoris; I48.91 Unspecified atrial fibrillation; J32.0 Chronic maxillary sinusitis; K02.9 Dental caries, unspecified; K04.7 Periapical abscess without sinus; K05.6 Periodontal disease, unspecified; M27.2 Inflammatory conditions of jaws; R79.1 Abnormal coagulation profile; Z20.822 Contact with and (suspected) exposure to COVID-19; S02.5XXA Fracture of tooth (traumatic), initial encounter for closed fracture; Z79.01 Long term (current) use of anticoagulants; Z79.82 Long term (current) use of aspirin; Z79.899 Other long term (current) drug therapy; Z82.49 Family history of ischemic heart disease and other diseases of the circulatory system; Z83.3 Family history of diabetes mellitus
CPT/HCPCS: 36415; 70487; 80053; 83036; 83605; 85025; 85610; 87040; 87070; 87075; 87205; 87635; 93306; 99285

== ENCOUNTER 2021-11-06 18:39 | Inpatient (IN) | payer BC ==
[2021-11-06] MEDS ORDERED: SODIUM CHLORIDE 0.9% 500 ML 500 ML IV STA (18:56)
--- NOTE | 2021-11-06 19:10 | XR ---
EXAMINATION TYPE: XR chest 2V DATE OF EXAM: 11/06/2021 COMPARISON: 01/30/2015 HISTORY: Short of breath TECHNIQUE: 2 views FINDINGS: There is no heart failure nor confluent pneumonic infiltrate. Costophrenic angles are clear . Bony thorax is intact. IMPRESSION: No active cardiopulmonary disease. There is clearing of the small pleural effusions angelica red to old exam. There is clearing of the mild pulmonary congestion.
[2021-11-06 19:24] LABS: Anisocytosis Slight; Basophils # (A) 0.1 k/uL (0-0.2); Basophils % (A) 1 %; Eosinophils % (A) 0 %; HCT 32.7 % (39.0-53.0); HGB 10.8 gm/dL (13.0-17.5); Lymphocytes # (A) 1.6 k/uL (1.0-4.8); Lymphocytes % (A) 16 %; MCH 31.6 pg (25.0-35.0); MCHC 33.2 g/dL (31.0-37.0); MCV 95.3 fL (80.0-100.0); Macrocytosis Slight; Mean Platelet Volume 10.3; Monocytes # (A) 0.5 k/uL (0-1.0); Monocytes % (A) 5 %; Neutrophils # (A) 7.2 k/uL (1.3-7.7); Neutrophils % (A) 74 %; Platelet Count 105 k/uL (150-450); RBC 3.43 m/uL (4.30-5.90); RDW 18.5 % (11.5-15.5); WBC 9.8 k/uL (3.8-10.6)
[2021-11-06 19:34] LABS: ALT 86 U/L (4-49); AST 148 U/L (17-59); African American GFR (CKD) 67 (>60 ml/min/1.73 sqM); Albumin 3.1 g/dL (3.5-5.0); Alcohol <10 mg/dL; Alkaline Phosphatase 361 U/L (38-126); Anion Gap 9 mmol/L; Blood Urea Nitrogen 19 mg/dL (9-20); Calcium 8.1 mg/dL (8.4-10.2); Carbon Dioxide 25 mmol/L (22-30); Chloride 98 mmol/L (98-107); Glucose 171 mg/dL (74-99); Magnesium 1.7 mg/dL (1.6-2.3); Non-African American GFR(CKD) 58 (>60 ml/min/1.73 sqM); Potassium 3.1 mmol/L (3.5-5.1); Sodium 132 mmol/L (137-145); Total Bilirubin 2.6 mg/dL (0.2-1.3); Total Protein 6.7 g/dL (6.3-8.2)
[2021-11-06 19:48] LABS: INR >10.0 (<1.2); Partial Thromboplastin Time 70.2 sec (22.0-30.0); Prothrombin Time >130.0 sec (9.0-12.0)
--- NOTE | 2021-11-06 22:29 | ED ---
General Adult HPI - General Chief complaint: Syncope Stated complaint: syncope Time Seen by Provider: 11/06/21 18:55 Source: EMS Mode of arrival: EMS Limitations: no limitations - History of Present Illness Initial comments: 65-year-old male past medical history of A. fib, alcohol abuse presents emergency room and after he had a syncopaL episode at home. Patient does not remember the incident. He was told by family that he was sitting in his chair a nd had 15 seconds where he went unresponsive. No injury sustained. EMS got to the house and found that the patient had a low blood pressure of 90/60. The heart rate of 120 and was in A. fib. Patient on Coumadin for anticoagulation. He arrives alert and oriented 3. CT has no complaints at this time. No chest pain, headache, shortness of breath, abdominal pain. No weakness in any of his extremities. He states he drinks occasionally however denies heavy or daily alcohol use. No other alleviating, precipitating or modifying factors - Related Data Home Medications Medication Instructions Recorded Confirmed Atorvastatin [Lipitor] 40 mg PO HS 07/15/21 11/06/21 amLODIPine [Norvasc] 10 mg PO DAILY 07/15/21 11/06/21 Furosemide [Lasix] 20 mg PO DAILY 11/06/21 11/06/21 Previous Rx's Medication Instructions Recorded Spironolactone [Aldactone] 25 mg PO DAILY #30 tab 01/31/15 Apixaban [Eliquis] 5 mg PO BID #60 tab 11/08/21 Metoprolol Succinate (ER) [Toprol 75 mg PO BID 11/10/21 XL] Nicotine 21Mg/24Hr Patch [Habitrol] 1 patch TRANSDERM DAILY patch 11/10/21 Allergies Allergy/AdvReac Type Severity Reaction Status Date / Time No Known Allergies Allergy Verified 07/15/21 19:23 Review of Systems ROS Statement: Those systems with pertinent positive or pertinent negative responses have been documented in the HPI. ROS Other: All systems not noted in ROS Statement are negative. Past Medical History Past Medical History: Atrial Fibrillation, Coronary Artery Disease (CAD), Diabetes Mellitus, Hyperlipidemia, Hypertension Additional Past Medical History / Comment(s): Patient's chart revealed a admission in 2014 congestive heart failure with some mention of alcohol-related cardiomyopathy. The patient admitted to still drinking but not drinking as much as he used to. History of Any Multi-Drug Resistant Organisms: None Reported Past Surgical History: No Surgical Hx Reported Past Anesthesia/Blood Transfusion Reactions: No Reported Reaction Past Psychological History: No Psychological Hx Reported Smoking Status: Current every day smoker Past Alcohol Use History: Occasional Past Drug Use History: None Reported - Past Family History Sister(s) Family Medical History: No Reported History Brother(s) Family Medical History: Coronary Artery Disease (CAD) Additional Family Medical History / Comment(s): CABG Mother Family Medical History: Diabetes Mellitus General Exam Limitations: no limitations General appearance: alert, in no apparent distress Head exam: Present: atraumatic, normocephalic, normal inspection Eye exam: Present: normal appearance, PERRL, EOMI. Absent: scleral icterus, conjunctival injection, periorbital swelling ENT exam: Present: normal exam, mucous membranes moist Neck exam: Present: normal inspection. Absent: tenderness, meningismus, lymphadenopathy Respiratory exam: Present: normal lung sounds bilaterally. Absent: respiratory distress, wheezes, rales, rhonchi, stridor Cardiovascular Exam: Present: tachycardia, irregular rhythm, normal heart sounds. Absent: systolic murmur, diastolic murmur, rubs, gallop, clicks GI/Abdominal exam: Present: soft, normal bowel sounds. Absent: distended, tenderness, guarding, rebound, rigid Extremities exam: Present: normal inspection, full ROM, normal capillary refill. Absent: tenderness, pedal edema, joint swelling, calf tenderness Back exam: Present: normal inspection Neurological exam: Present: alert, oriented X3, CN II-XII intact Psychiatric exam: Present: normal affect, normal mood Skin exam: Present: warm, dry, intact, normal color. Absent: rash Course Vital Signs 11/06/21 11/06/21 11/06/21 18:47 19:00 20:00 Temperature 97.9 F Pulse Rate 114 H 112 H 113 H Respiratory 18 20 20 Rate Blood Pressure 97/57 113/99 108/83 O2 Sat by Pulse 99 99 99 Oximetry 11/06/21 11/06/21 11/06/21 21:00 22:00 23:00 Temperature Pulse Rate 115 H 116 H 98 Respiratory 20 20 20 Rate Blood Pressure 88/74 107/66 125/74 O2 Sat by Pulse 98 100 100 Oximetry 11/07/21 11/07/21 11/07/21 00:01 02:00 05:00 Temperature Pulse Rate 111 H 107 H 101 H Respiratory 18 18 18 Rate Blood Pressure 108/67 113/70 124/76 O2 Sat by Pulse 99 99 99 Oximetry 11/07/21 11/07/21 11/07/21 07:00 08:00 15:25 Temperature 98.1 F 98.3 F Pulse Rate 97 98 92 Respiratory 18 18 18 Rate Blood Pressure 100/77 96/60 106/67 O2 Sat by Pulse 99 98 98 Oximetry 11/07/21 18:20 Temperature 98.4 F Pulse Rate 90 Respiratory 18 Rate Blood Pressure 108/67 O2 Sat by Pulse 97 Oximetry EKG Findings - EKG Comments: EKG Findings:: EKG demonstrates A. fib with a rate of 113. QRS 94. QTC of 414. No acute ST segment elevations or depressions Procedures - Zahl Protocol (Time Out) Nurse: Nidia Santiago Medical Decision Making - Medical Decision Making Upon arrival patient is placed in room 6. Thorough history and physical exam was performed. There was no report of any seizure-like activity. Patient is alert and oriented. Denies any headaches, vision changes or head trauma. 12- lead EKG is completed which demonstrates A. fib with a rapid rate. Laboratory studies were conducted and reviewed. Patient INR is greater than 10. Sodium 132. Potassium 3.1. Creatinine 1.2. Magnesium is 1.7. Magnesium and potassium is replaced. Patient given 5 mg of vitamin K for his undetectable INR. Did recommend a CT of his brain however patient is alert and oriented and capable of refusing at this time. Chest x-ray is performed which demonstrates no active cardiopulmonary disease. Clearing of small pleural effusions. Results are discussed with the patient. Recommended admission because of his elevated INR. Patient agreed to this. Spoke with Dr. Quintero who agreed to admit the patient. - Lab Data Result diagrams: 11/10/21 08:52 11/10/21 08:52 Lab Results 11/06/21 11/06/21 11/06/21 Range/Units 19:16 19:16 19:16 WBC 9.8 (3.8-10.6) k/uL RBC 3.43 L (4.30-5.90) m/uL Hgb 10.8 L (13.0-17.5) gm/dL Hct 32.7 L (39.0-53.0) % MCV 95.3 (80.0-100.0) fL MCH 31.6 (25.0-35.0) pg MCHC 33.2 (31.0-37.0) g/dL RDW 18.5 H (11.5-15.5) % Plt Count 105 L (150-450) k/uL MPV 10.3 Neutrophils % 74 % Lymphocytes % 16 % Monocytes % 5 % Eosinophils % 0 % Basophils % 1 % Neutrophils # 7.2 (1.3-7.7) k/uL Lymphocytes # 1.6 (1.0-4.8) k/uL Monocytes # 0.5 (0-1.0) k/uL Eosinophils # 0.0 (0-0.7) k/uL Basophils # 0.1 (0-0.2) k/uL Anisocytosis Slight Macrocytosis Slight PT >130.0 H (9.0-12.0) sec INR >10.0 H* (<1.2) APTT 70.2 H (22.0-30.0) sec Sodium 132 L (137-145) mmol/L Potassium 3.1 L (3.5-5.1) mmol/L Chloride 98 (98-107) mmol/L Carbon Dioxide 25 (22-30) mmol/L Anion Gap 9 mmol/L BUN 19 (9-20) mg/dL Creatinine 1.29 H (0.66-1.25) mg/dL Est GFR (CKD-EPI)AfAm 67 (>60 ml/min/1.73 sqM) Est GFR (CKD-EPI)NonAf 58 (>60 ml/min/1.73 sqM) Glucose 171 H (74-99) mg/dL Calcium 8.1 L (8.4-10.2) mg/dL Magnesium 1.7 (1.6-2.3) mg/dL Total Bilirubin 2.6 H (0.2-1.3) mg/dL AST 148 H (17-59) U/L ALT 86 H (4-49) U/L Alkaline Phosphatase 361 H (38-126) U/L Troponin I (0.000-0.034) ng/mL Total Protein 6.7 (6.3-8.2) g/dL Albumin 3.1 L (3.5-5.0) g/dL Urine Color Urine Appearance (Clear) Urine pH (5.0-8.0) Ur Specific [place] (1.001-1.035) Urine Protein (Negative) Urine Glucose (UA) (Negative) Urine Ketones (Negative) Urine Blood (Negative) Urine Nitrite (Negative) Urine Bilirubin (Negative) Urine Urobilinogen (<2.0) mg/dL Ur Leukocyte Esterase (Negative) Urine RBC (0-5) /hpf Urine WBC (0-5) /hpf Ur Squamous Epith Cells (0-4) /hpf Hyaline Casts (0-2) /lpf Urine Mucus (None) /hpf Serum Alcohol <10 mg/dL 11/06/21 11/06/21 Range/Units 19:16 22:04 WBC (3.8-10.6) k/uL RBC (4.30-5.90) m/uL Hgb (13.0-17.5) gm/dL Hct (39.0-53.0) % MCV (80.0-100.0) fL MCH (25.0-35.0) pg MCHC (31.0-37.0) g/dL RDW (11.5-15.5) % Plt Count (150-450) k/uL MPV Neutrophils % % Lymphocytes % % Monocytes % % Eosinophils % % Basophils % % Neutrophils # (1.3-7.7) k/uL Lymphocytes # (1.0-4.8) k/uL Monocytes # (0-1.0) k/uL Eosinophils # (0-0.7) k/uL Basophils # (0-0.2) k/uL Anisocytosis Macrocytosis PT (9.0-12.0) sec INR (<1.2) APTT (22.0-30.0) sec Sodium (137-145) mmol/L Potassium (3.5-5.1) mmol/L Chloride (98-107) mmol/L Carbon Dioxide (22-30) mmol/L Anion Gap mmol/L BUN (9-20) mg/dL Creatinine (0.66-1.25) mg/dL Est GFR (CKD-EPI)AfAm (>60 ml/min/1.73 sqM) Est GFR (CKD-EPI)NonAf (>60 ml/min/1.73 sqM) Glucose (74-99) mg/dL Calcium (8.4-10.2) mg/dL Magnesium (1.6-2.3) mg/dL Total Bilirubin (0.2-1.3) mg/dL AST (17-59) U/L ALT (4-49) U/L Alkaline Phosphatase (38-126) U/L Troponin I <0.012 (0.000-0.034) ng/mL Total Protein (6.3-8.2) g/dL Albumin (3.5-5.0) g/dL Urine Color Yellow Urine Appearance Cloudy (Clear) Urine pH 5.5 (5.0-8.0) Ur Specific [place] 1.014 (1.001-1.035) Urine Protein Trace H (Negative) Urine Glucose (UA) Negative (Negative) Urine Ketones Negative (Negative) Urine Blood Small H (Negative) Urine Nitrite Negative (Negative) Urine Bilirubin Negative (Negative) Urine Urobilinogen <2.0 (<2.0) mg/dL Ur Leukocyte Esterase Negative (Negative) Urine RBC 1 (0-5) /hpf Urine WBC 6 H (0-5) /hpf Ur Squamous Epith Cells <1 (0-4) /hpf Hyaline Casts 5 H (0-2) /lpf Urine Mucus Moderate H (None) /hpf Serum Alcohol mg/dL Disposition Clinical Impression: Syncope, Supratherapeutic INR, Atrial fibrillation with rapid ventricular response Disposition: ADMITTED IP TO THIS HOSP Condition: Stable Is patient prescribed a controlled substance at d/c from ED?: No Decision to Admit Reason: Admit from EC Decision Date: 11/06/21 Decision Time: 23:01
[2021-11-06 22:35] LABS: Appearance,Urine Cloudy (Clear); Bilirubin,Urine Negative (Negative); Blood,Urine Small (Negative); Color,Urine Yellow; Glucose,Urine (UA) Negative (Negative); Hyaline Casts,Urine 5 /lpf (0-2); Ketones,Urine Negative (Negative); Leukocyte Esterase,Urine Negative (Negative); Mucus,Urine Moderate /hpf; Nitrite,Urine Negative (Negative); PH, Urine 5.5 (5.0-8.0); Protein,Urine Trace (Negative); RBC,Urine 1 /hpf (0-5); Specific Gravity,Urine 1.014 (1.001-1.035); Squamous Epithelial Cell,Urine <1 /hpf (0-4); Urobilinogen,Urine <2.0 mg/dL (<2.0); WBC,Urine 6 /hpf (0-5)
[2021-11-06] MEDS ORDERED: PHYTONADIONE ORAL 5 MG/5 ML ORAL.SYRG PO ONE (22:45)
[2021-11-06] MEDS ORDERED: NALOXONE 0.4 MG/ML 1 ML VIAL IV PRN (23:01)
[2021-11-07] MEDS ORDERED: MAGNESIUM SULFATE-D5W PMX 1 GM in DEXTROSE/WATER 1 100ML.BAG IVPB ONE (01:36)
[2021-11-07] MEDS ORDERED: POTASSIUM CHLORIDE ER 20 MEQ TAB.ER PO STA (01:37)
[2021-11-07] MEDS ORDERED: POTASSIUM CHLORIDE 20 MEQ in WATER FOR INJECTION 1 100ML.BAG IVPB ONE (01:45)
[2021-11-07] MEDS: carvediloL 12.5 MG TAB PO SCH ×3 (02:49→18:19)
[2021-11-07 06:13] LABS: Calcium 7.4 mg/dL (8.4-10.2); Potassium 3.2 mmol/L (3.5-5.1)
[2021-11-07 06:16] LABS: Prothrombin Time 72.2 sec (9.0-12.0)
[2021-11-07 06:20] LABS: Anisocytosis Slight; HCT 26.3 % (39.0-53.0); MCH 31.6 pg (25.0-35.0); MCHC 33.2 g/dL (31.0-37.0); MCV 95.3 fL (80.0-100.0); Macrocytosis Slight; Mean Platelet Volume 11.2; RBC 2.76 m/uL (4.30-5.90); WBC 6.2 k/uL (3.8-10.6)
[2021-11-07 06:21] LABS: INR 7.1 (<1.2)
[2021-11-07 06:23] LABS: HGB 8.7 gm/dL (13.0-17.5)
[2021-11-07 06:58] LABS: Platelet Count 78 k/uL (150-450)
[2021-11-07 07:01] LABS: Eosinophils # (M) 0.06 k/uL (0-0.7); Lymphocytes # (M) 1.49 k/uL (1.0-4.8); Monocytes # (M) 0.62 k/uL (0-1.0); Neutrophils # (M) 4.03 k/uL (1.3-7.7); Neutrophils % (M) 65 %; Nucleated Red Blood Cells 0 /100 WBC (0-0); Total Cells Counted 100
[2021-11-07] MEDS: SPIRONOLACTONE 25 MG TAB PO SCH (08:00)
[2021-11-07] MEDS: amLODIPine 10 MG TAB PO SCH ×2 (08:03→08:12)
[2021-11-07] MEDS: FUROSEMIDE 20 MG TAB PO SCH ×2 (08:04→08:10)
[2021-11-07] MEDS ORDERED: Potassium Replacement Protocol 1 EACH MISC MISCELLANE PRN (09:12)
--- NOTE | 2021-11-07 11:23 | US ---
EXAMINATION TYPE: US carotid duplex BILAT DATE OF EXAM: 11/07/2021 COMPARISON: NONE CLINICAL HISTORY: syncope. syncope EXAM MEASUREMENTS: RIGHT: Peak Systolic Velocity (PSV) cm/sec ----- Right CCA: 68.9 ----- Right ICA: 72.3 ----- Right ECA: 102 ICA/CCA ratio: 1.0 RIGHT: End Diastole cm/sec ----- Right CCA: 20.8 ----- Right ICA: 24.7 ----- Right ECA: 13.2 LEFT: Peak Systolic Velocity (PSV) cm/sec ----- Left CCA: 87.8 ----- Left ICA: 104 ----- Left ECA: 113 ICA/CCA ratio: 1.2 LEFT: End Diastole cm/sec ----- Left CCA: 24.7 ----- Left ICA: 48.8 ----- Left ECA: 16.9 VERTEBRALS (direction of flow): Right Vertebral: Antegrade Left Vertebral: unable to visualize Grayscale, color Doppler, spectral Doppler imaging performed of the carotid arteries. Waveform analys is does not show significant stenosis of the internal carotid arteries. mild plaque bilateral bifurca tions. no evidence of increased velocities IMPRESSION: No hemodynamic significant stenosis of the proximal internal carotid arteries by Doppler criteria, an indirect measurement of carotid stenosis Criteria for Assigning % of Stenosis / Diameter reduction (Estimation based on the indirect measurements of the internal carotid artery velocities (ICA PSV). 1. Normal (no stenosis)=ICA PSV < 125 cm/s: ratio < 2.0: ICA EDV<40 cm/s. 2. Less than 50% stenosis=ICA PSV < 125 cm/s: ratio < 2.0: ICA EDV<40 cm/s. 3. 50 to 69% stenosis=ICA PSV of 125 to 230 cm/s: ration 2.0 ? 4.0: ICA EDV 40-100 cm/s. 4. Greater than 70% stenosis to near occlusion= ICA PSV > 230 cm/s: ratio > 4.0: ICA EDV > 100 cm/s. 5. Near occlusion= ICA PSV velocities may be low or undetectable: variable ratio and ICA EDV. 6. Total occlusion=unable to detect flow.
--- NOTE | 2021-11-07 11:37 | ECHOF ---
Referral Reason:syncope MEASUREMENTS -------- HEIGHT: 180.3 cm WEIGHT: 85.3 kg BP: 96/60 RVIDd: 3.6 cm (< 3.3) IVSd: 1.3 cm (0.6 - 1.1) LVIDd: 4.1 cm (3.9 - 5.3) LVPWd: 1.3 cm (0.6 - 1.1) IVSs: 1.9 cm LVIDs: 2.9 cm LVPWs: 1.8 cm LA Diam: 4.2 cm (2.7 - 3.8) LAESV Index (A-L): 44.92 ml/m Ao Diam: 3.2 cm (2.0 - 3.7) AV Cusp: 2.2 cm (1.5 - 2.6) MV EXCURSION: 18.739 mm (> 18.000) MV EF SLOPE: 138 mm/s (70 - 150) EPSS: 0.5 cm RAP: 5.00 mmHg RVSP: 36.61 mmHg FINDINGS -------- Atrial fibrillation. This was a technically good study. The left ventricular size is normal. There is mild concentric left ventricular hypertrophy. Overa ll left ventricular systolic function is normal with, an EF between 55 - 60 %. The right ventricle is mildly enlarged. LA is severely dilated >40 ml/m2 The right atrium is normal in size. Interatrial and interventricular septum intact. Aortic valve is trileaflet and is mildly thickened. The mitral valve leaflets are mildly thickened. There is trace mitral regurgitation. Mild tricuspid regurgitation present. There is mild pulmonary hypertension. The right ventricular systolic pressure, as measured by Doppler, is 36.61mmHg. Trace/mild (physiologic) pulmonic regurgitation. The aortic root size is normal. Normal inferior vena cava with normal inspiratory collapse consistent with estimated right atrial pre ssure of 5 mmHg. There is no pericardial effusion. CONCLUSIONS -------- 1. The left ventricular size is normal. 2. There is mild concentric left ventricular hypertrophy. 3. Overall left ventricular systolic function is normal with, an EF between 55 - 60 %. 4. The right ventricle is mildly enlarged. 5. LA is severely dilated >40 ml/m2 6. Aortic valve is trileaflet and is mildly thickened. 7. The mitral valve leaflets are mildly thickened. 8. There is trace mitral regurgitation. 9. Mild tricuspid regurgitation present. 10. There is mild pulmonary hypertension. 11. The right ventricular systolic pressure, as measured by Doppler, is 36.61mmHg. 12. Trace/mild (physiologic) pulmonic regurgitation. 13. There is no pericardial effusion. [employer]PERVISOR: KAROLYN Mejía
[2021-11-07] MEDS ORDERED: THIAMINE 100 MG/ML 2 ML VIAL IM STA (13:33)
[2021-11-07] MEDS ORDERED: LORazepam 2 MG/ML INJ IV PRN ×3 (13:33)
--- NOTE | 2021-11-07 13:33 | P.HPIM ---
History of Present Illness H&P Date: 11/07/21 Jett Ornelas, is a 65-year-old male, who presented to [facility] emergency room with a chief complaint of syncope He was evaluated in the emergency room vital examination on presentation revealed a temperature of 97.9 pulse 114 respiration 18 blood pressure 97/57 pulse ox 99% on room air Laboratory data revealed a white blood count of 9.8 hemoglobin 10.8 platelet count 105 sodium 132 potassium 3.1 chloride 98 CO2 25 BUN 19 creatinine 1.29 glucose was 171 total bilirubin 2.6 AST 148 ALT 86 alkaline phosphatase 361 troponin less than 0.012 albumin level 3.1 serum alcohol level less than 10 INR was more than 10 Testing in the emergency room revealed EKG done in the emergency room revealed atrial fibrillation with rapid ventricular response heart rate at 113 chest x- ray done in the emergency room revealed no active cardiopulmonary disease Patient was given vitamin K emergency room he was admitted to medical floor for further evaluation and treatment. 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 Past Medical History Past Medical History: Atrial Fibrillation, Coronary Artery Disease (CAD), Diabetes Mellitus, Hyperlipidemia, Hypertension Additional Past Medical History / Comment(s): Patient's chart revealed a admission in 2014 congestive heart failure with some mention of alcohol-related cardiomyopathy. The patient admitted to still drinking but not drinking as much as he used to. History of Any Multi-Drug Resistant Organisms: None Reported Past Surgical History: No Surgical Hx Reported Past Anesthesia/Blood Transfusion Reactions: No Reported Reaction Past Psychological History: No Psychological Hx Reported Smoking Status: Current every day smoker Past Alcohol Use History: Occasional Past Drug Use History: None Reported - Past Family History Sister(s) Family Medical History: No Reported History Brother(s) Family Medical History: Coronary Artery Disease (CAD) Additional Family Medical History / Comment(s): CABG Mother Family Medical History: Diabetes Mellitus Medications and Allergies Home Medications Medication Instructions Recorded Confirmed Type Spironolactone [Aldactone] 25 mg PO DAILY #30 tab 01/31/15 11/06/21 Rx Atorvastatin [Lipitor] 40 mg PO HS 07/15/21 11/06/21 History Carvedilol [Coreg] 25 mg PO BID 07/15/21 11/06/21 History Warfarin [Coumadin] 10 mg PO HS 07/15/21 11/06/21 History amLODIPine [Norvasc] 10 mg PO DAILY 07/15/21 11/06/21 History Furosemide [Lasix] 20 mg PO DAILY 11/06/21 11/06/21 History Allergies Allergy/AdvReac Type Severity Reaction Status Date / Time No Known Allergies Allergy Verified 07/15/21 19:23 Physical Exam Vitals: Vital Signs Temp Pulse Resp BP Pulse Ox 11/07/21 08:00 98.1 F 98 18 96/60 98 11/07/21 07:00 97 18 100/77 99 11/07/21 05:00 101 H 18 124/76 99 11/07/21 02:00 107 H 18 113/70 99 11/07/21 00:01 111 H 18 108/67 99 11/06/21 23:00 98 20 125/74 100 11/06/21 22:00 116 H 20 107/66 100 11/06/21 21:00 115 H 20 88/74 98 11/06/21 20:00 113 H 20 108/83 99 11/06/21 19:00 112 H 20 113/99 99 11/06/21 18:47 97.9 F 114 H 18 97/57 99 Intake and Output 11/06/21 11/07/21 11/07/21 22:59 06:59 14:59 Other: Weight 85.275 kg In general patient is alert and oriented x 3 in no distress HEENT head normocephalic and atraumatic Neck is supple no JVD no goiter no lymphadenopathy no carotid bruit Chest examination is clear to auscultation no crackles no wheezing Cardiac exam reveals regular heart sounds S1 and S2 no gallops no murmurs Abdomen is soft nontender no organomegaly with normal bowel sounds Extremity exam reveals no edema no cyanosis or clubbing Neurological examination reveals no gross focal deficits Results CBC & Chem 7: 11/07/21 05:16 11/07/21 05:16 Labs: Abnormal Lab Results - Last 24 Hours (Table) 11/06/21 11/06/21 11/06/21 Range/Units 19:16 19:16 19:16 RBC 3.43 L (4.30-5.90) m/uL Hgb 10.8 L (13.0-17.5) gm/dL Hct 32.7 L (39.0-53.0) % RDW 18.5 H (11.5-15.5) % Plt Count 105 L (150-450) k/uL PT >130.0 H (9.0-12.0) sec INR >10.0 H* (<1.2) APTT 70.2 H (22.0-30.0) sec Sodium 132 L (137-145) mmol/L Potassium 3.1 L (3.5-5.1) mmol/L Creatinine 1.29 H (0.66-1.25) mg/dL Glucose 171 H (74-99) mg/dL Calcium 8.1 L (8.4-10.2) mg/dL Total Bilirubin 2.6 H (0.2-1.3) mg/dL AST 148 H (17-59) U/L ALT 86 H (4-49) U/L Alkaline Phosphatase 361 H (38-126) U/L Albumin 3.1 L (3.5-5.0) g/dL Urine Protein (Negative) Urine Blood (Negative) Urine WBC (0-5) /hpf Hyaline Casts (0-2) /lpf Urine Mucus (None) /hpf 11/06/21 11/07/21 11/07/21 Range/Units 22:04 05:16 05:16 RBC 2.76 L (4.30-5.90) m/uL Hgb 8.7 L D (13.0-17.5) gm/dL Hct 26.3 L (39.0-53.0) % RDW 19.0 H (11.5-15.5) % Plt Count 78 L (150-450) k/uL PT 72.2 H (9.0-12.0) sec INR 7.1 H* (<1.2) APTT (22.0-30.0) sec Sodium (137-145) mmol/L Potassium (3.5-5.1) mmol/L Creatinine (0.66-1.25) mg/dL Glucose (74-99) mg/dL Calcium (8.4-10.2) mg/dL Total Bilirubin (0.2-1.3) mg/dL AST (17-59) U/L ALT (4-49) U/L Alkaline Phosphatase (38-126) U/L Albumin (3.5-5.0) g/dL Urine Protein Trace H (Negative) Urine Blood Small H (Negative) Urine WBC 6 H (0-5) /hpf Hyaline Casts 5 H (0-2) /lpf Urine Mucus Moderate H (None) /hpf 11/07/21 Range/Units 05:16 RBC (4.30-5.90) m/uL Hgb (13.0-17.5) gm/dL Hct (39.0-53.0) % RDW (11.5-15.5) % Plt Count (150-450) k/uL PT (9.0-12.0) sec INR (<1.2) APTT (22.0-30.0) sec Sodium 133 L (137-145) mmol/L Potassium 3.2 L (3.5-5.1) mmol/L Creatinine 1.33 H (0.66-1.25) mg/dL Glucose 201 H (74-99) mg/dL Calcium 7.4 L (8.4-10.2) mg/dL Total Bilirubin (0.2-1.3) mg/dL AST (17-59) U/L ALT (4-49) U/L Alkaline Phosphatase (38-126) U/L Albumin (3.5-5.0) g/dL Urine Protein (Negative) Urine Blood (Negative) Urine WBC (0-5) /hpf Hyaline Casts (0-2) /lpf Urine Mucus (None) /hpf Assessment and Plan Plan: Syncopal episode, cause unclear will check echocardiogram and carotid Doppler, monitor on telemetry , consult cardiology. Severe coagulopathy with INR more than 10 patient was given vitamin K in the emergency room will hold Coumadin and monitor INR closely Atrial fibrillation with rapid ventricular response on presentation, patient was restarted on his home medications including Coreg heart rate is better controlled at this time. Electrolyte imbalance with hypokalemia and hypomagnesemia on presentation Underlying history of hypertension Underlying history of hyperlipidemia Underlying history of diabetes mellitus Underlying history of congestive heart failure with possible alcohol related cardiomyopathy. Underlying history of excessive alcohol abuse in the past patient stated that he is still drinking but in moderation at this time Underlying history of tobacco use. At this time patient is admitted to telemetry floor Home medications reviewed and reordered Will hold Coumadin at this time and check INR closely Echocardiogram and carotid Doppler were ordered Will order CIWA protocol, in case patient has any symptoms of alcohol withdrawal alcohol level was less than 10 on presentation Cardiology consultation requested
[2021-11-07] MEDS ORDERED: NICOTINE 21MG/24HR PATCH TRANSDERM STA (18:10)
[2021-11-07] MEDS: THIAMINE 100 MG TAB PO SCH (18:18)
[2021-11-07 19:52] LABS: Glucose,Whole Blood 145 mg/dL (75-99)
[2021-11-07] MEDS: INSULIN ASPART (NovoLOG) 100 UNIT/ML VIAL SQ SCH (20:12)
[2021-11-07] MEDS: ATORVASTATIN 40 MG TAB PO SCH (20:12)
[2021-11-08 06:10] LABS: Glucose,Whole Blood 177 mg/dL (75-99)
[2021-11-08] MEDS: THIAMINE 100 MG TAB PO SCH ×2 (06:23→17:32)
[2021-11-08] MEDS: carvediloL 12.5 MG TAB PO SCH (06:24)
[2021-11-08] MEDS: INSULIN ASPART (NovoLOG) 100 UNIT/ML VIAL SQ SCH ×4 (06:24→21:23)
[2021-11-08 07:34] LABS: Anisocytosis Slight; Basophils % (A) 1 %; Eosinophils % (A) 0 %; HCT 26.2 % (39.0-53.0); HGB 8.5 gm/dL (13.0-17.5); Hypochromasia Slight; Lymphocytes # (A) 1.6 k/uL (1.0-4.8); Lymphocytes % (A) 31 %; MCH 31.6 pg (25.0-35.0); MCHC 32.3 g/dL (31.0-37.0); Macrocytosis Slight; Mean Platelet Volume 10.3; Monocytes # (A) 0.4 k/uL (0-1.0); Monocytes % (A) 8 %; Neutrophils % (A) 58 %; Platelet Count 76 k/uL (150-450); RBC 2.67 m/uL (4.30-5.90); RDW 18.6 % (11.5-15.5); WBC 5.2 k/uL (3.8-10.6)
[2021-11-08 07:36] LABS: INR 2.3 (<1.2); Prothrombin Time 22.7 sec (9.0-12.0)
[2021-11-08 07:41] LABS: Albumin 2.4 g/dL (3.5-5.0); Calcium 7.9 mg/dL (8.4-10.2); Potassium 3.5 mmol/L (3.5-5.1); Total Bilirubin 2.3 mg/dL (0.2-1.3); Total Protein 5.5 g/dL (6.3-8.2)
[2021-11-08] MEDS: amLODIPine 10 MG TAB PO SCH (09:26)
[2021-11-08] MEDS: FUROSEMIDE 20 MG TAB PO SCH (09:29)
[2021-11-08] MEDS: SPIRONOLACTONE 25 MG TAB PO SCH (09:29)
[2021-11-08] MEDS ORDERED: METOPROLOL SUCCINATE (ER) 50 MG TAB.ER.24H PO SCH ×2 (09:30→21:00)
--- NOTE | 2021-11-08 09:54 | P.PN ---
Subjective Progress Note Date: 11/08/21 Jett Ornelas, is a 65-year-old male, who presented to [facility] emergency room with a chief complaint of syncope He was evaluated in the emergency room vital examination on presentation r evealed a temperature of 97.9 pulse 114 respiration 18 blood pressure 97/57 pulse ox 99% on room air Laboratory data revealed a white blood count of 9.8 hemoglobin 10.8 platelet count 105 sodium 132 potassium 3.1 chloride 98 CO2 25 BUN 19 creatinine 1.29 glucose was 171 total bilirubin 2.6 AST 148 ALT 86 alkaline phosphatase 361 troponin less than 0.012 albumin level 3.1 serum alcohol level less than 10 INR was more than 10 Testing in the emergency room revealed EKG done in the emergency room revealed atrial fibrillation with rapid ventricular response heart rate at 113 chest x- ray done in the emergency room revealed no active cardiopulmonary disease Patient was given vitamin K emergency room he was admitted to medical floor for further evaluation and treatment. 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 ATU patient is alert and oriented 3. INR today 2.3 hemoglobin 8.5. Patient did have carotid Doppler completed that was negative. 2-D echo completed showing EF of 55-60%. Discussed case with cardiology services medication a djustments made due to low blood pressure we'll continue to monitor patient over the next 24 hours with medication changes with possible discharge home tomorrow. At this time patient denies chest pain or shortness of breath. Patient denies nausea vomiting or diarrhea. Patient denies any urinary burning or frequency. Objective - Vital Signs Vital signs: Vital Signs Temp 98.3 F 11/08/21 04:00 Pulse 84 11/08/21 04:00 Resp 16 11/08/21 04:00 BP 105/64 11/08/21 04:00 Pulse Ox 99 11/08/21 04:00 Intake & Output 11/07/21 11/08/21 11/08/21 18:59 06:59 18:59 Intake Total 780 Output Total 300 Balance 480 Weight 85.275 kg Intake: Oral 780 Output: Urine 300 Other: Voiding Method Toilet Urinal # Voids 1 - Exam In general patient is alert and oriented x 3 in no distress HEENT head normocephalic and atraumatic Neck is supple no JVD no goiter no lymphadenopathy no carotid bruit Chest examination is clear to auscultation no crackles no wheezing Cardiac exam reveals regular heart sounds S1 and S2 no gallops no murmurs Abdomen is soft nontender no organomegaly with normal bowel sounds Extremity exam reveals no edema no cyanosis or clubbing Neurological examination reveals no gross focal deficits - Labs CBC & Chem 7: 11/08/21 06:30 11/08/21 06:30 Labs: Abnormal Lab Results - Last 24 Hours (Table) 11/07/21 11/08/21 11/08/21 Range/Units 19:51 06:08 06:30 RBC (4.30-5.90) m/uL Hgb (13.0-17.5) gm/dL Hct (39.0-53.0) % RDW (11.5-15.5) % Plt Count (150-450) k/uL PT (9.0-12.0) sec INR (<1.2) Sodium (137-145) mmol/L Chloride (98-107) mmol/L Glucose (74-99) mg/dL POC Glucose (mg/dL) 145 H 177 H (75-99) mg/dL Hemoglobin A1c 6.3 H (0.0-6.0) % Calcium (8.4-10.2) mg/dL Total Bilirubin (0.2-1.3) mg/dL AST (17-59) U/L ALT (4-49) U/L Alkaline Phosphatase (38-126) U/L Total Protein (6.3-8.2) g/dL Albumin (3.5-5.0) g/dL 11/08/21 11/08/21 11/08/21 Range/Units 06:30 06:30 06:30 RBC 2.67 L (4.30-5.90) m/uL Hgb 8.5 L (13.0-17.5) gm/dL Hct 26.2 L (39.0-53.0) % RDW 18.6 H (11.5-15.5) % Plt Count 76 L (150-450) k/uL PT 22.7 H (9.0-12.0) sec INR 2.3 H (<1.2) Sodium 135 L (137-145) mmol/L Chloride 109 H (98-107) mmol/L Glucose 136 H (74-99) mg/dL POC Glucose (mg/dL) (75-99) mg/dL Hemoglobin A1c (0.0-6.0) % Calcium 7.9 L (8.4-10.2) mg/dL Total Bilirubin 2.3 H (0.2-1.3) mg/dL AST 101 H (17-59) U/L ALT 58 H (4-49) U/L Alkaline Phosphatase 211 H (38-126) U/L Total Protein 5.5 L (6.3-8.2) g/dL Albumin 2.4 L (3.5-5.0) g/dL Assessment and Plan Plan: Syncopal episode, cause unclear will check echocardiogram and carotid Doppler, monitor on telemetry , consult cardiology. 2-D echo showing an EF of 55-60%. Carotid Doppler negative Severe coagulopathy with INR more than 10 patient was given vitamin K in the em ergency room will hold Coumadin and monitor INR closely. INR improving to 2.3 Atrial fibrillation with rapid ventricular response on presentation, patient was restarted on his home medications including Coreg heart rate is better controlled at this time. Electrolyte imbalance with hypokalemia and hypomagnesemia on presentation. 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 Underlying history of excessive alcohol abuse in the past patient stated that he is still drinking but in moderation at this time Underlying history of tobacco use. At this time patient is admitted to telemetry floor Blood pressure medications adjusted per cardiology 2-D echo and carotid Doppler completed findings above Cardiology services following Alcohol withdrawal protocol Repeat labs in a.m.
--- NOTE | 2021-11-08 11:41 | P.CRDCN ---
History of Present Illness Consult date: 11/07/21 History of present illness: HISTORY OF PRESENT ILLNESS: This is a 65-year-old male with a past medical history significant for paroxysmal atrial fibrillation, hypertension, hyperlipidemia, diabetes, nicotine dependence, and alcohol abuse. Patient has not followed in the office since 2017. We have been asked to see the patient in consultation for syncope. Patient examined at the bedside. Patient states he has been feeling lightheaded recently when going from a sitting to standing position. Patient states yesterday he was with his friends and was sitting down talking with them. Apparently the patient went unresponsive for a few seconds. Patients blood pressure was found to be low when he came to the hospital with a systolic in the 90s. Patient remains in afib this morning with a heart rate around 100-105. * EKG reveals A. fib with RVR * Chest xray no active cardiac pulmonary disease. There is clearing of small pleural effusions compared to old exam. Clearing of mild pulmonary congestion. * Laboratory data: WBC 6.2. Hemoglobin 8.7. Platelet count 78. INR 7.1. Sodium 133. Sodium 133. Potassium 3.2. BUN 20. Creatinine 1.33. Bilirubin 2.6. AST 148. ALT 86. Troponin negative 1. Serum alcohol less than 10. * Current home cardiac medications include spironolactone 25 mg daily, Lasix 20 mg daily, Norvasc 10 mg daily, warfarin 10 mg at night, carvedilol 25 mg twice a day, and Lipitor 40 mg daily * Echocardiogram completed revealing ejection fraction 55-60%, right ventricle mildly enlarged, trace MR, mild TR, mild pulmonary hypertension with RVSP of 36.61 mmHG. * Carotid Doppler: No hemodynamic significant stenosis of the proximal internal carotid arteries. REVIEW OF SYSTEMS: At the time of my exam: CONSTITUTIONAL: Denies fever or chills. HEENT: Denies blurred vision, vision changes, or eye pain. Denies hemoptysis CARDIOVASCULAR: Denies chest pain. Denies orthopnea. Denies PND. Denies palpitations RESPIRATORY: Denies shortness of breath. GASTROINTESTINAL: Denies abdominal pain. Denies nausea or vomiting. HEMATOLOGIC: Denies bleeding disorders. GENITOURINARY: Denies any blood in urine. SKIN: Denies pruitis. Denies rash. PHYSICAL EXAM: VITAL SIGNS: Reviewed. GENERAL: Well-developed in no acute distress. HEENT: Head is normocephalic. Pupils are equal, round. Sclerae anicteric. Mucous membranes of the mouth are moist. Neck supple. No JVD or thyromegaly LUNGS: Respirations even and unlabored. Lungs essentially clear to auscultation bilaterally. HEART: Irregular rate and rhythm. S1 and S2 heard. ABDOMEN: Soft. Nondistended. Nontender. EXTREMITIES: Normal range of motion. No clubbing or cyanosis. Peripheral pulses intact. No lower extremity edema NEUROLOGIC: Awake and alert. Oriented x 3. ASSESSMENT: Syncope/Presyncope Paroxysmal A. fib with RVR Supratherapeutic INR/Coumadin coagulopathy Acute kidney injury, baseline unknown, Elevated LFTs Anemia, unclear etiology Thrombocytopenia History of cardiomyopathy, 2014, ejection fraction 20-25%, suspected to be alcohol related, EF since improved Hypertension Hyperlipidemia Diabetes Nicotine dependence History of alcohol abuse PLAN: Check coverage for Eliquis. Discontinue Norvasc Discontinue Coreg Begin metoprolol succinate 50 mg twice a day Check TSH Further recommendations pending patient course Nurse practitioner note has been reviewed by physician. Signing provider agrees with the documented findings, assessment, and plan of care. Past Medical History Past Medical History: Atrial Fibrillation, Coronary Artery Disease (CAD), Diabetes Mellitus, Hyperlipidemia, Hypertension Additional Past Medical History / Comment(s): Patient's chart revealed a admission in 2014 congestive heart failure with some mention of alcohol-related cardiomyopathy. The patient admitted to still drinking but not drinking as much as he used to. History of Any Multi-Drug Resistant Organisms: None Reported Past Surgical History: No Surgical Hx Reported Additional Past Surgical History / Comment(s): had 7 teeth removed d/t infection Past Anesthesia/Blood Transfusion Reactions: No Reported Reaction Past Psychological History: No Psychological Hx Reported Smoking Status: Current every day smoker Past Alcohol Use History: Occasional Past Drug Use History: None Reported - Past Family History Sister(s) Family Medical History: No Reported History Brother(s) Family Medical History: Coronary Artery Disease (CAD) Additional Family Medical History / Comment(s): CABG Mother Family Medical History: Diabetes Mellitus Medications and Allergies Home Medications Medication Instructions Recorded Confirmed Type Spironolactone [Aldactone] 25 mg PO DAILY #30 tab 01/31/15 11/06/21 Rx Atorvastatin [Lipitor] 40 mg PO HS 07/15/21 11/06/21 History Carvedilol [Coreg] 25 mg PO BID 07/15/21 11/06/21 History Warfarin [Coumadin] 10 mg PO HS 07/15/21 11/06/21 History amLODIPine [Norvasc] 10 mg PO DAILY 07/15/21 11/06/21 History Furosemide [Lasix] 20 mg PO DAILY 11/06/21 11/06/21 History Apixaban [Eliquis] 5 mg PO BID #60 tab 11/08/21 Rx Allergies Allergy/AdvReac Type Severity Reaction Status Date / Time No Known Allergies Allergy Verified 07/15/21 19:23 Physical Exam Vitals: Vital Signs Temp Pulse Resp BP Pulse Ox 11/07/21 08:00 98.1 F 98 18 96/60 98 11/07/21 07:00 97 18 100/77 99 11/07/21 05:00 101 H 18 124/76 99 11/07/21 02:00 107 H 18 113/70 99 11/07/21 00:01 111 H 18 108/67 99 11/06/21 23:00 98 20 125/74 100 11/06/21 22:00 116 H 20 107/66 100 11/06/21 21:00 115 H 20 88/74 98 11/06/21 20:00 113 H 20 108/83 99 11/06/21 19:00 112 H 20 113/99 99 11/06/21 18:47 97.9 F 114 H 18 97/57 99 Intake and Output 11/06/21 11/07/21 11/07/21 22:59 06:59 14:59 Other: Weight 85.275 kg 85.275 kg Results 11/08/21 06:30 11/08/21 06:30 Cardiac Enzymes 11/06/21 11/06/21 Range/Units 19:16 19:16 AST 148 H (17-59) U/L Troponin I <0.012 (0.000-0.034) ng/mL Coagulation 11/06/21 11/07/21 Range/Units 19:16 05:16 PT >130.0 H 72.2 H (9.0-12.0) sec APTT 70.2 H (22.0-30.0) sec CBC 11/06/21 11/07/21 Range/Units 19:16 05:16 WBC 9.8 6.2 (3.8-10.6) k/uL RBC 3.43 L 2.76 L (4.30-5.90) m/uL Hgb 10.8 L 8.7 L D (13.0-17.5) gm/dL Hct 32.7 L 26.3 L (39.0-53.0) % Plt Count 105 L 78 L (150-450) k/uL Comprehensive Metabolic Panel 11/06/21 11/07/21 Range/Units 19:16 05:16 Sodium 132 L 133 L (137-145) mmol/L Potassium 3.1 L 3.2 L (3.5-5.1) mmol/L Chloride 98 103 (98-107) mmol/L Carbon Dioxide 25 27 (22-30) mmol/L BUN 19 20 (9-20) mg/dL Creatinine 1.29 H 1.33 H (0.66-1.25) mg/dL Glucose 171 H 201 H (74-99) mg/dL Calcium 8.1 L 7.4 L (8.4-10.2) mg/dL AST 148 H (17-59) U/L ALT 86 H (4-49) U/L Alkaline Phosphatase 361 H (38-126) U/L Total Protein 6.7 (6.3-8.2) g/dL Albumin 3.1 L (3.5-5.0) g/dL Current Medications Generic Name Dose Route Start Last Admin Trade Name Freq PRN Reason Stop Dose Admin Amlodipine Besylate 10 mg 11/07/21 09:00 11/07/21 08:12 Amlodipine 10 Mg Tab PO Not Given DAILY [facility] Atorvastatin Calcium 40 mg 11/07/21 21:00 Atorvastatin 40 Mg Tab PO [facility] Carvedilol 25 mg 11/07/21 01:30 11/07/21 07:59 Carvedilol 12.5 Mg Tab PO 25 mg BID-W/MEALS LEE Administration Furosemide 20 mg 11/07/21 09:00 11/07/21 08:10 Furosemide 20 Mg Tab PO Not Given DAILY [facility] Lorazepam 1 mg 11/07/21 13:33 Lorazepam 2 Mg/Ml Inj IV Q2HR PRN CIWA 8 or 9 Lorazepam 1 mg 11/07/21 13:33 Lorazepam 2 Mg/Ml Inj IV Q1HR PRN CIWA 10 to 15 Lorazepam 2 mg 11/07/21 13:33 Lorazepam 2 Mg/Ml Inj IV 11/09/21 13:34 Q10M PRN CIWA 16 or higher Miscellaneous Information 1 each 11/07/21 09:12 Potassium Replacement Protocol 1 Each Misc MISCELLANE DAILY PRN Per Protocol Protocol Naloxone HCl 0.2 mg 11/06/21 23:01 Naloxone 0.4 Mg/Ml 1 Ml Vial IV Q2M PRN Opioid Reversal Spironolactone 25 mg 11/07/21 09:00 11/07/21 08:00 Spironolactone 25 Mg Tab PO 25 mg DAILY LEE Administration Thiamine HCl 100 mg 11/07/21 17:30 Thiamine 100 Mg Tab PO BID-W/MEALS LEE Intake and Output 11/06/21 11/07/21 11/07/21 22:59 06:59 14:59 Other: Weight 85.275 kg 85.275 kg Patient Weight 11/08/21 06:59 Weight 85.275 kg 11/07/21 05:16 11/07/21 05:16
[2021-11-08 11:43] LABS: Glucose,Whole Blood 192 mg/dL (75-99)
[2021-11-08] MEDS: NICOTINE 21MG/24HR PATCH TRANSDERM SCH (12:12)
[2021-11-08 15:08] LABS: Chol/HDL Ratio 4.54 Ratio; LDL Cholesterol,Calculated 70.3 mg/dL (0.0-131.0)
[2021-11-08 16:28] LABS: Glucose,Whole Blood 173 mg/dL (75-99)
[2021-11-08 20:17] LABS: Glucose,Whole Blood 144 mg/dL (75-99)
[2021-11-08] MEDS: ATORVASTATIN 40 MG TAB PO SCH (21:22)
[2021-11-09 06:15] LABS: Glucose,Whole Blood 162 mg/dL (75-99)
[2021-11-09] MEDS: THIAMINE 100 MG TAB PO SCH ×2 (06:29→17:30)
[2021-11-09] MEDS: INSULIN ASPART (NovoLOG) 100 UNIT/ML VIAL SQ SCH ×4 (06:29→20:09)
[2021-11-09 06:56] LABS: Anisocytosis Slight; Basophils # (A) 0.1 k/uL (0-0.2); Basophils % (A) 1 %; Eosinophils % (A) 0 %; HCT 26.6 % (39.0-53.0); HGB 8.5 gm/dL (13.0-17.5); Hypochromasia Slight; Lymphocytes # (A) 1.3 k/uL (1.0-4.8); Lymphocytes % (A) 24 %; MCH 31.6 pg (25.0-35.0); MCHC 31.9 g/dL (31.0-37.0); Macrocytosis Moderate; Mean Platelet Volume 10.7; Monocytes # (A) 0.5 k/uL (0-1.0); Monocytes % (A) 9 %; Neutrophils # (A) 3.5 k/uL (1.3-7.7); Neutrophils % (A) 62 %; RBC 2.69 m/uL (4.30-5.90); RDW 19.2 % (11.5-15.5); WBC 5.6 k/uL (3.8-10.6)
[2021-11-09 06:57] LABS: Platelet Count 76 k/uL (150-450)
[2021-11-09 07:11] LABS: Albumin 2.6 g/dL (3.5-5.0); Calcium 8.1 mg/dL (8.4-10.2); Potassium 3.6 mmol/L (3.5-5.1); Total Bilirubin 2.1 mg/dL (0.2-1.3); Total Protein 5.9 g/dL (6.3-8.2)
[2021-11-09] MEDS: FUROSEMIDE 20 MG TAB PO SCH (09:00)
[2021-11-09] MEDS: APIXABAN 5 MG TAB PO SCH ×2 (09:00→20:09)
[2021-11-09] MEDS: METOPROLOL SUCCINATE (ER) 25 MG TAB.ER.24H PO SCH ×2 (09:00→20:09)
[2021-11-09] MEDS: NICOTINE 21MG/24HR PATCH TRANSDERM SCH (09:01)
[2021-11-09] MEDS: SPIRONOLACTONE 25 MG TAB PO SCH (09:01)
[2021-11-09 11:46] LABS: Glucose,Whole Blood 160 mg/dL (75-99)
--- NOTE | 2021-11-09 12:12 | P.PN ---
Subjective Progress Note Date: 11/09/21 HISTORY OF PRESENT ILLNESS: This is a 65-year-old male with a past medical history significant for paroxysmal atrial fibrillation, hypertension, hyperlipidemia, diabetes, nicotine dependence, and alcohol abuse. Patient has not followed in the office since 2017. We have been asked to see the patient in consultation for syncope. Patient examined at the bedside. Patient states he has been feeling lightheaded recently when going from a sitting to standing position. Patient states yesterday he was with his friends and was sitting down talking with them. Apparently the patient went unresponsive for a few seconds. Patients blood pressure was found to be low when he came to the hospital with a systolic in the 90s. Patient remains in afib this morning with a heart rate around 100-105. * EKG reveals A. fib with RVR * Chest xray no active cardiac pulmonary disease. There is clearing of small pleural effusions compared to old exam. Clearing of mild pulmonary congestion. * Laboratory data: WBC 6.2. Hemoglobin 8.7. Platelet count 78. INR 7.1. Sodium 133. Sodium 133. Potassium 3.2. BUN 20. Creatinine 1.33. Bilirubin 2.6. AST 148. ALT 86. Troponin negative 1. Serum alcohol less than 10. * Current home cardiac medications include spironolactone 25 mg daily, Lasix 20 mg daily, Norvasc 10 mg daily, warfarin 10 mg at night, carvedilol 25 mg twice a day, and Lipitor 40 mg daily * Echocardiogram completed revealing ejection fraction 55-60%, right ventricle mildly enlarged, trace MR, mild TR, mild pulmonary hypertension with RVSP of 36.61 mmHG. * Carotid Doppler: No hemodynamic significant stenosis of the proximal internal carotid arteries. 11/09/2021 Patient examined at the bedside this morning. Patient denies chest pain or pressure. Denies SOB. Telemetry reveals atrial fibrillation with a heart rate in the 110s. PHYSICAL EXAM: VITAL SIGNS: Reviewed. GENERAL: Well-developed in no acute distress. HEENT: Head is normocephalic. Pupils are equal, round. Sclerae anicteric. Mucous membranes of the mouth are moist. Neck supple. No JVD or thyromegaly LUNGS: Respirations even and unlabored. Lungs essentially clear to auscultation bilaterally. HEART: Irregular rate and rhythm. S1 and S2 heard. ABDOMEN: Soft. Nondistended. Nontender. EXTREMITIES: Normal range of motion. No clubbing or cyanosis. Peripheral pulses intact. No lower extremity edema NEUROLOGIC: Awake and alert. Oriented x 3. ASSESSMENT: Syncope/Presyncope Paroxysmal A. fib with RVR Supratherapeutic INR/Coumadin coagulopathy Acute kidney injury, baseline unknown, Elevated LFTs Anemia, unclear etiology Thrombocytopenia History of cardiomyopathy, 2014, ejection fraction 20-25%, suspected to be alcohol related, EF since improved Hypertension Hyperlipidemia Diabetes Nicotine dependence History of alcohol abuse PLAN: Discontinue Coumadin. Add Eliquis 5 mg twice a day Increase metoprolol to 75 mg twice a day Further recommendations pending patient course Nurse practitioner note has been reviewed by physician. Signing provider agrees with the documented findings, assessment, and plan of care. Objective - Vital Signs Vital signs: Vital Signs Temp 98.1 F 11/09/21 08:00 Pulse 114 H 11/09/21 08:00 Resp 18 11/09/21 08:00 BP 122/64 11/09/21 08:00 Pulse Ox 98 11/09/21 08:00 Intake & Output 11/08/21 11/09/21 11/09/21 18:59 06:59 18:59 Intake Total 540 Output Total 1350 700 Balance -1350 -160 Weight 84.8 kg Intake: Oral 540 Output: Urine 1350 700 Other: Voiding Method Toilet Urinal # Voids 1 - Labs CBC & Chem 7: 11/09/21 06:30 11/09/21 06:30 Labs: Abnormal Lab Results - Last 24 Hours (Table) 11/08/21 11/08/21 11/08/21 Range/Units 06:30 16:27 20:14 RBC (4.30-5.90) m/uL Hgb (13.0-17.5) gm/dL Hct (39.0-53.0) % RDW (11.5-15.5) % Plt Count (150-450) k/uL Chloride (98-107) mmol/L Glucose (74-99) mg/dL POC Glucose (mg/dL) 173 H 144 H (75-99) mg/dL Calcium (8.4-10.2) mg/dL Total Bilirubin (0.2-1.3) mg/dL AST (17-59) U/L ALT (4-49) U/L Alkaline Phosphatase (38-126) U/L Total Protein (6.3-8.2) g/dL Albumin (3.5-5.0) g/dL Triglycerides 167.00 H (0.00-149.00) mg/dL HDL Cholesterol 29.30 L (40.00-60.00) mg/dL 11/09/21 11/09/21 11/09/21 Range/Units 06:11 06:30 06:30 RBC 2.69 L (4.30-5.90) m/uL Hgb 8.5 L (13.0-17.5) gm/dL Hct 26.6 L (39.0-53.0) % RDW 19.2 H (11.5-15.5) % Plt Count 76 L (150-450) k/uL Chloride 109 H (98-107) mmol/L Glucose 134 H (74-99) mg/dL POC Glucose (mg/dL) 162 H (75-99) mg/dL Calcium 8.1 L (8.4-10.2) mg/dL Total Bilirubin 2.1 H (0.2-1.3) mg/dL AST 108 H (17-59) U/L ALT 67 H (4-49) U/L Alkaline Phosphatase 188 H (38-126) U/L Total Protein 5.9 L (6.3-8.2) g/dL Albumin 2.6 L (3.5-5.0) g/dL Triglycerides (0.00-149.00) mg/dL HDL Cholesterol (40.00-60.00) mg/dL 11/09/21 Range/Units 11:44 RBC (4.30-5.90) m/uL Hgb (13.0-17.5) gm/dL Hct (39.0-53.0) % RDW (11.5-15.5) % Plt Count (150-450) k/uL Chloride (98-107) mmol/L Glucose (74-99) mg/dL POC Glucose (mg/dL) 160 H (75-99) mg/dL Calcium (8.4-10.2) mg/dL Total Bilirubin (0.2-1.3) mg/dL AST (17-59) U/L ALT (4-49) U/L Alkaline Phosphatase (38-126) U/L Total Protein (6.3-8.2) g/dL Albumin (3.5-5.0) g/dL Triglycerides (0.00-149.00) mg/dL HDL Cholesterol (40.00-60.00) mg/dL
[2021-11-09 16:54] LABS: Glucose,Whole Blood 164 mg/dL (75-99)
--- NOTE | 2021-11-09 19:30 | P.PN ---
Subjective Progress Note Date: 11/09/21 Jett Ornelas, is a 65-year-old male, who presented to [facility] emergency room with a chief complaint of syncope He was evaluated in the emergency room vital examination on presentation r evealed a temperature of 97.9 pulse 114 respiration 18 blood pressure 97/57 pulse ox 99% on room air Laboratory data revealed a white blood count of 9.8 hemoglobin 10.8 platelet count 105 sodium 132 potassium 3.1 chloride 98 CO2 25 BUN 19 creatinine 1.29 glucose was 171 total bilirubin 2.6 AST 148 ALT 86 alkaline phosphatase 361 troponin less than 0.012 albumin level 3.1 serum alcohol level less than 10 INR was more than 10 Testing in the emergency room revealed EKG done in the emergency room revealed atrial fibrillation with rapid ventricular response heart rate at 113 chest x- ray done in the emergency room revealed no active cardiopulmonary disease Patient was given vitamin K emergency room he was admitted to medical floor for further evaluation and treatment. 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 On 11/08/2021 patient is alert and oriented 3. INR today 2.3 hemoglobin 8.5. Patient did have carotid Doppler completed that was negative. 2-D echo completed showing EF of 55-60%. Discussed case with cardiology services me dication adjustments made due to low blood pressure we'll continue to monitor patient over the next 24 hours with medication changes with possible discharge home tomorrow. At this time patient denies chest pain or shortness of breath. Patient denies nausea vomiting or diarrhea. Patient denies any urinary burning or frequency. On 11/09/2021 patient was seen and examined on the medical floor he is alert and oriented 3 in no apparent distress he is still having significant tachycardia he was evaluated by cardiology and dose of metoprolol was increased to 75 mg twice daily, Patient denies any fever or chills no headache or dizziness no chest pain no shortness of breath no cough no nausea or vomiting no abdominal pain no diarrhea no blood in the stools no burning with urination no frequency or urgency and no hematuria Coumadin was discontinued by cardiology and patient was started on Eliquis 75 mg twice daily Objective - Vital Signs Vital signs: Vital Signs Temp 98.1 F 11/09/21 16:00 Pulse 105 H 11/09/21 16:00 Resp 16 11/09/21 16:00 BP 122/70 11/09/21 16:00 Pulse Ox 98 11/09/21 16:00 Intake & Output 11/09/21 11/09/21 11/10/21 06:59 18:59 06:59 Intake Total 540 180 Output Total 700 600 Balance -160 -420 Weight 84.8 kg Intake: Oral 540 180 Output: Urine 700 600 Other: Voiding Method Toilet Urinal # Voids 1 - Exam In general patient is alert and oriented x 3 in no distress HEENT head normocephalic and atraumatic Neck is supple no JVD no goiter no lymphadenopathy no carotid bruit Chest examination is clear to auscultation no crackles no wheezing Cardiac exam reveals regular heart sounds S1 and S2 no gallops no murmurs Abdomen is soft nontender no organomegaly with normal bowel sounds Extremity exam reveals no edema no cyanosis or clubbing Neurological examination reveals no gross focal deficits - Labs CBC & Chem 7: 11/09/21 06:30 11/09/21 06:30 Labs: Abnormal Lab Results - Last 24 Hours (Table) 11/08/21 11/09/21 11/09/21 Range/Units 20:14 06:11 06:30 RBC 2.69 L (4.30-5.90) m/uL Hgb 8.5 L (13.0-17.5) gm/dL Hct 26.6 L (39.0-53.0) % RDW 19.2 H (11.5-15.5) % Plt Count 76 L (150-450) k/uL Chloride (98-107) mmol/L Glucose (74-99) mg/dL POC Glucose (mg/dL) 144 H 162 H (75-99) mg/dL Calcium (8.4-10.2) mg/dL Total Bilirubin (0.2-1.3) mg/dL AST (17-59) U/L ALT (4-49) U/L Alkaline Phosphatase (38-126) U/L Total Protein (6.3-8.2) g/dL Albumin (3.5-5.0) g/dL 11/09/21 11/09/21 11/09/21 Range/Units 06:30 11:44 16:53 RBC (4.30-5.90) m/uL Hgb (13.0-17.5) gm/dL Hct (39.0-53.0) % RDW (11.5-15.5) % Plt Count (150-450) k/uL Chloride 109 H (98-107) mmol/L Glucose 134 H (74-99) mg/dL POC Glucose (mg/dL) 160 H 164 H (75-99) mg/dL Calcium 8.1 L (8.4-10.2) mg/dL Total Bilirubin 2.1 H (0.2-1.3) mg/dL AST 108 H (17-59) U/L ALT 67 H (4-49) U/L Alkaline Phosphatase 188 H (38-126) U/L Total Protein 5.9 L (6.3-8.2) g/dL Albumin 2.6 L (3.5-5.0) g/dL Assessment and Plan Plan: Syncopal episode, cause unclear will check echocardiogram and carotid Doppler, monitor on telemetry , consult cardiology. 2-D echo showing an EF of 55-60%. Carotid Doppler negative Severe coagulopathy with INR more than 10 patient was given vitamin K in the emergency room will hold Coumadin and monitor INR closely. INR improving to 2.3 Atrial fibrillation with rapid ventricular response on presentation, patient was restarted on his home medications including Coreg heart rate is better controlled at this time. Electrolyte imbalance with hypokalemia and hypomagnesemia on presentation. 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 Underlying history of excessive alcohol abuse in the past patient stated that he is still drinking but in moderation at this time Underlying history of tobacco use. At this time patient is admitted to telemetry floor Blood pressure medications adjusted per cardiology 2-D echo and carotid Doppler completed findings above Cardiology services following Alcohol withdrawal protocol Repeat labs in a.m.
[2021-11-09 20:04] LABS: Glucose,Whole Blood 140 mg/dL (75-99)
[2021-11-09] MEDS: ATORVASTATIN 40 MG TAB PO SCH (20:09)
[2021-11-10 06:10] LABS: Glucose,Whole Blood 141 mg/dL (75-99)
[2021-11-10] MEDS: INSULIN ASPART (NovoLOG) 100 UNIT/ML VIAL SQ SCH ×2 (06:30→12:27)
[2021-11-10] MEDS: THIAMINE 100 MG TAB PO SCH (06:31)
[2021-11-10] MEDS: FUROSEMIDE 20 MG TAB PO SCH (08:13)
[2021-11-10] MEDS: METOPROLOL SUCCINATE (ER) 25 MG TAB.ER.24H PO SCH (08:13)
[2021-11-10] MEDS: NICOTINE 21MG/24HR PATCH TRANSDERM SCH (08:13)
[2021-11-10] MEDS: SPIRONOLACTONE 25 MG TAB PO SCH (08:13)
[2021-11-10] MEDS: APIXABAN 5 MG TAB PO SCH (08:13)
[2021-11-10 08:17] VITALS: RESP 18; TEMP 98.4
[2021-11-10 09:34] LABS: INR 1.3 (<1.2); Prothrombin Time 13.4 sec (9.0-12.0)
--- NOTE | 2021-11-10 09:41 | P.PN ---
Subjective Progress Note Date: 11/10/21 Jett Ornelas, is a 65-year-old male, who presented to [facility] emergency room with a chief complaint of syncope He was evaluated in the emergency room vital examination on presentation r evealed a temperature of 97.9 pulse 114 respiration 18 blood pressure 97/57 pulse ox 99% on room air Laboratory data revealed a white blood count of 9.8 hemoglobin 10.8 platelet count 105 sodium 132 potassium 3.1 chloride 98 CO2 25 BUN 19 creatinine 1.29 glucose was 171 total bilirubin 2.6 AST 148 ALT 86 alkaline phosphatase 361 troponin less than 0.012 albumin level 3.1 serum alcohol level less than 10 INR was more than 10 Testing in the emergency room revealed EKG done in the emergency room revealed atrial fibrillation with rapid ventricular response heart rate at 113 chest x- ray done in the emergency room revealed no active cardiopulmonary disease Patient was given vitamin K emergency room he was admitted to medical floor for further evaluation and treatment. 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 On 11/08/2021 patient is alert and oriented 3. INR today 2.3 hemoglobin 8.5. Patient did have carotid Doppler completed that was negative. 2-D echo completed showing EF of 55-60%. Discussed case with cardiology services me dication adjustments made due to low blood pressure we'll continue to monitor patient over the next 24 hours with medication changes with possible discharge home tomorrow. At this time patient denies chest pain or shortness of breath. Patient denies nausea vomiting or diarrhea. Patient denies any urinary burning or frequency. On 11/09/2021 patient was seen and examined on the medical floor he is alert and oriented 3 in no apparent distress he is still having significant tachycardia he was evaluated by cardiology and dose of metoprolol was increased to 75 mg twice daily, Patient denies any fever or chills no headache or dizziness no chest pain no shortness of breath no cough no nausea or vomiting no abdominal pain no diarrhea no blood in the stools no burning with urination no frequency or urgency and no hematuria Coumadin was discontinued by cardiology and patient was started on Eliquis 75 mg twice daily On 11/10/2021 patient is alert and oriented 3 patient still having elevated heart rate 100s to 120s despite increased metoprolol dose. Awaiting cardiology input. At this time patient denies chest pain or shortness of breath. Patient denies nausea vomiting or diarrhea. Patient denies any urinary burning or frequency. Coupon given to patient for eliquis covered per case management. Objective - Vital Signs Vital signs: Vital Signs Temp 98.4 F 11/10/21 08:00 Pulse 120 H 11/10/21 08:00 Resp 18 11/10/21 08:00 BP 102/56 11/10/21 08:00 Pulse Ox 99 11/10/21 08:00 Intake & Output 11/09/21 11/10/21 11/10/21 18:59 06:59 18:59 Intake Total 180 240 10 Output Total 600 475 Balance -420 -235 10 Intake: IV 10 Invasive Line 1 10 Oral 180 240 Output: Urine 600 475 Other: Voiding Method Toilet Toilet Urinal Urinal # Voids 1 - Exam In general patient is alert and oriented x 3 in no distress HEENT head normocephalic and atraumatic Neck is supple no JVD no goiter no lymphadenopathy no carotid bruit Chest examination is clear to auscultation no crackles no wheezing Cardiac exam reveals regular heart sounds S1 and S2 no gallops no murmurs Abdomen is soft nontender no organomegaly with normal bowel sounds Extremity exam reveals no edema no cyanosis or clubbing Neurological examination reveals no gross focal deficits - Labs CBC & Chem 7: 11/09/21 06:30 11/09/21 06:30 Labs: Abnormal Lab Results - Last 24 Hours (Table) 11/09/21 11/09/21 11/09/21 Range/Units 11:44 16:53 20:03 PT (9.0-12.0) sec INR (<1.2) POC Glucose (mg/dL) 160 H 164 H 140 H (75-99) mg/dL 11/10/21 11/10/21 Range/Units 06:09 08:52 PT 13.4 H (9.0-12.0) sec INR 1.3 H (<1.2) POC Glucose (mg/dL) 141 H (75-99) mg/dL Assessment and Plan Plan: Syncopal episode, cause unclear will check echocardiogram and carotid Doppler, monitor on telemetry , consult cardiology. 2-D echo showing an EF of 55-60%. Carotid Doppler negative Severe coagulopathy with INR more than 10 patient was given vitamin K in the emergency room will hold Coumadin and monitor INR closely. INR improving to 2.3 Atrial fibrillation with rapid ventricular response on presentation, patient was restarted on his home medications including Coreg heart rate is better controlled at this time. Electrolyte imbalance with hypokalemia and hypomagnesemia on presentation. 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 Underlying history of excessive alcohol abuse in the past patient stated that he is still drinking but in moderation at this time Underlying history of tobacco use. At this time patient is admitted to telemetry floor Blood pressure medications adjusted per cardiology 2-D echo and carotid Doppler completed findings above Cardiology services following Alcohol withdrawal protocol Repeat labs in a.m.
[2021-11-10 10:15] LABS: Anisocytosis Moderate; HCT 28.7 % (39.0-53.0); HGB 9.1 gm/dL (13.0-17.5); Hypochromasia Moderate; MCH 32.3 pg (25.0-35.0); MCHC 31.9 g/dL (31.0-37.0); MCV 101.3 fL (80.0-100.0); Macrocytosis Moderate; Mean Platelet Volume 10.6; Platelet Count 107 k/uL (150-450); RBC 2.83 m/uL (4.30-5.90); RDW 20.6 % (11.5-15.5); WBC 6.1 k/uL (3.8-10.6)
[2021-11-10 10:44] LABS: Calcium 8.4 mg/dL (8.4-10.2); Potassium 3.7 mmol/L (3.5-5.1)
[2021-11-10 11:34] LABS: Glucose,Whole Blood 143 mg/dL (75-99)
[2021-11-10 11:40] LABS: Eosinophils # (M) 0.06 k/uL (0-0.7); Lymphocytes # (M) 0.85 k/uL (1.0-4.8); Monocytes # (M) 0.79 k/uL (0-1.0); Neutrophils # (M) 4.45 k/uL (1.3-7.7); Neutrophils % (M) 73 %; Nucleated Red Blood Cells 0 /100 WBC (0-0); Total Cells Counted 200
[2021-11-10 11:41] LABS: Polychromasia Present
[2021-11-10 12:26] VITALS: BP 110/66; PULSE 109
--- NOTE | 2021-11-10 13:00 | P.PN ---
Subjective Patient resting comfortably in bed No chest discomfort dizziness or lightheadedness Atrial fibrillation rates ranged from 80-100 beats a minute Currently on metoprolol succinate sent femoral grams twice daily On examination heart rate 100, afebrile Blood pressure 119/60 mmHg Breath sounds are reduced bilaterally no rhonchi no crackles Heart sounds S1 and S2 are normal with irregular Impression Atrial fibrillation with RVR History of cardio myopathy she is improved Hypertension Type 2 diabetes history of alcohol use Suggest ELIQUIS 5 mg twice daily Metoprolol succinate sent 5 mg twice daily Complete abstinence from alcohol intake Follow Dr. Rubio in 3-4 weeks From a chronic standpoint hemoglobin home within the next 24 hours Objective - Vital Signs Vital signs: Vital Signs Temp 98.4 F 11/10/21 08:00 Pulse 109 H 11/10/21 12:00 Resp 18 11/10/21 12:00 BP 110/66 11/10/21 12:00 Pulse Ox 95 11/10/21 12:00 Intake & Output 11/09/21 11/10/21 11/10/21 18:59 06:59 18:59 Intake Total 180 240 10 Output Total 600 475 500 Balance -420 -235 -490 Intake: IV 10 Invasive Line 1 10 Oral 180 240 Output: Urine 600 475 500 Other: Voiding Method Toilet Toilet Urinal Urinal # Voids 1 - Labs CBC & Chem 7: 11/10/21 08:52 11/10/21 08:52 Labs: Abnormal Lab Results - Last 24 Hours (Table) 11/09/21 11/09/21 11/10/21 Range/Units 16:53 20:03 06:09 RBC (4.30-5.90) m/uL Hgb (13.0-17.5) gm/dL Hct (39.0-53.0) % MCV (80.0-100.0) fL RDW (11.5-15.5) % Plt Count (150-450) k/uL Lymphocytes # (Manual) (1.0-4.8) k/uL PT (9.0-12.0) sec INR (<1.2) Glucose (74-99) mg/dL POC Glucose (mg/dL) 164 H 140 H 141 H (75-99) mg/dL 11/10/21 11/10/21 11/10/21 Range/Units 08:52 08:52 08:52 RBC 2.83 L (4.30-5.90) m/uL Hgb 9.1 L (13.0-17.5) gm/dL Hct 28.7 L (39.0-53.0) % MCV 101.3 H (80.0-100.0) fL RDW 20.6 H (11.5-15.5) % Plt Count 107 L (150-450) k/uL Lymphocytes # (Manual) 0.85 L (1.0-4.8) k/uL PT 13.4 H (9.0-12.0) sec INR 1.3 H (<1.2) Glucose 186 H (74-99) mg/dL POC Glucose (mg/dL) (75-99) mg/dL 11/10/21 Range/Units 11:33 RBC (4.30-5.90) m/uL Hgb (13.0-17.5) gm/dL Hct (39.0-53.0) % MCV (80.0-100.0) fL RDW (11.5-15.5) % Plt Count (150-450) k/uL Lymphocytes # (Manual) (1.0-4.8) k/uL PT (9.0-12.0) sec INR (<1.2) Glucose (74-99) mg/dL POC Glucose (mg/dL) 143 H (75-99) mg/dL
== END 2021-11-10 15:30 | disposition home or self-care (01) | DRG 813 ==
LOC: EC 18:39 → 3SCARD 23:01
PROVIDERS: ADMIT Internal Medicine; ATTEND Internal Medicine
PROC: HZ2ZZZZ Detoxification Services for Substance Abuse Treatment (ICD-10-PCS; principal; 2021-11-06)
DX: D68.32 Hemorrhagic disorder due to extrinsic circulating anticoagulants (principal); N17.9 Acute kidney failure, unspecified; I42.6 Alcoholic cardiomyopathy; J90 Pleural effusion, not elsewhere classified; R55 Syncope and collapse; T45.515A Adverse effect of anticoagulants, initial encounter; R00.0 Tachycardia, unspecified; D64.9 Anemia, unspecified; R59.1 Generalized enlarged lymph nodes; D69.6 Thrombocytopenia, unspecified; E11.9 Type 2 diabetes mellitus without complications; I08.1 Rheumatic disorders of both mitral and tricuspid valves; I27.20 Pulmonary hypertension, unspecified; I37.1 Nonrheumatic pulmonary valve insufficiency; I95.9 Hypotension, unspecified; X58.XXXA Exposure to other specified factors, initial encounter; E78.5 Hyperlipidemia, unspecified; E83.42 Hypomagnesemia; E87.6 Hypokalemia; F17.210 Nicotine dependence, cigarettes, uncomplicated; I11.0 Hypertensive heart disease with heart failure; I25.10 Atherosclerotic heart disease of native coronary artery without angina pectoris; I48.0 Paroxysmal atrial fibrillation; I50.9 Heart failure, unspecified; Z79.01 Long term (current) use of anticoagulants; Z79.899 Other long term (current) drug therapy; Z82.49 Family history of ischemic heart disease and other diseases of the circulatory system; Z83.3 Family history of diabetes mellitus
CPT/HCPCS: 36415; 71046; 80048; 80053; 80061; 80320; 81001; 83036; 83735; 84443; 84484; 85025; 85610; 85730; 93005; 93306; 93880; 96365; 99285

== ENCOUNTER 2023-01-01 23:18 | Inpatient (IN) | payer MEDICARE, OTHER ==
[2023-01-01 23:39] LABS: Glucose,Whole Blood 52 mg/dL (70-110)
[2023-01-01] MEDS ORDERED: NOREPINEPHRINE 32 MG in SODIUM CHLORIDE 0.9% 218 ML IV ONE (23:43)
--- NOTE | 2023-01-01 23:52 | XR ---
EXAM: XR Chest, 1 View CLINICAL HISTORY: ITS.REASON XR Reason: pain TECHNIQUE: Frontal view of the chest. COMPARISON: 11/06/2021 FINDINGS: Lungs: Left midlung and infiltrate likely infectious or inflammatory etiology. Pleural space: Unremarkable. No pneumothorax. Heart: Unremarkable. No cardiomegaly. Mediastinum: Unremarkable. Bones/joints: Unremarkable. Tubes, lines and devices: Endotracheal tube with its tip above the joanna. IMPRESSION: Left midlung infiltrate.
[2023-01-02 00:16] LABS: African American GFR (CKD) 48 (>60 ml/min/1.73 sqM); Albumin 3.2 g/dL (3.5-5.0); Alcohol <10 mg/dL; Alkaline Phosphatase 102 U/L (38-126); Anion Gap 20 mmol/L; Blood Urea Nitrogen 18 mg/dL (9-20); Carbon Dioxide 19 mmol/L (22-30); Chloride 99 mmol/L (98-107); Glucose 51 mg/dL (74-99); Magnesium 2.4 mg/dL (1.6-2.3); Non-African American GFR(CKD) 41 (>60 ml/min/1.73 sqM); Potassium 4.9 mmol/L (3.5-5.1); Sodium 138 mmol/L (137-145); Total Bilirubin 2.8 mg/dL (0.2-1.3); Total Protein 7.3 g/dL (6.3-8.2)
[2023-01-02 00:18] LABS: INR 1.2 (<1.2); Partial Thromboplastin Time 29.3 sec (22.0-30.0); Prothrombin Time 12.6 sec (9.0-12.0)
[2023-01-02] MEDS ORDERED: SODIUM BICARB 8.4% 50 ML SYR (1 MEQ/ML) ONE (00:18)
[2023-01-02] MEDS ORDERED: DEXTROSE 50% SYRINGE 50 ML IVP ONE (00:18)
[2023-01-02] MEDS ORDERED: EPINEPHrine 10 ML SYRINGE (0.1 MG/ML) ONE (00:18)
[2023-01-02 00:21] LABS: AST 718 U/L (17-59)
[2023-01-02 00:22] LABS: ALT 162 U/L (4-49)
[2023-01-02 00:23] LABS: Glucose,Whole Blood 29 mg/dL (70-110)
[2023-01-02 00:35] LABS: Anisocytosis Slight; HCT 45.5 % (39.0-53.0); HGB 13.5 gm/dL (13.0-17.5); Hypochromasia Marked; MCH 26.5 pg (25.0-35.0); MCHC 29.7 g/dL (31.0-37.0); MCV 89.4 fL (80.0-100.0); Mean Platelet Volume 10.2; Platelet Count 189 k/uL (150-450); RBC 5.09 m/uL (4.30-5.90); RDW 17.1 % (11.5-15.5)
[2023-01-02] MEDS ORDERED: DEXTROSE 50% SYRINGE 50 ML IVP STA ×3 (00:42→03:05)
[2023-01-02 00:46] LABS: Glucose,Whole Blood 159 mg/dL (70-110)
[2023-01-02 01:03] VITALS: TEMP 100.6
[2023-01-02 01:05] LABS: Lactic Acid, Venous 11.5 mmol/L (0.7-2.0)
[2023-01-02 01:08] LABS: Glucose,Whole Blood 118 mg/dL (70-110)
--- NOTE | 2023-01-02 01:33 | CT ---
EXAM: CT Head Without Intravenous Contrast CLINICAL HISTORY: ITS.REASON CT Reason: altered mental status TECHNIQUE: Axial computed tomography images of the head/brain without intravenous contrast. CTDI is 49.2 mGy and DLP is 1133.4 mGy-cm. This CT exam was performed using one or more of the following dose reduction techniques: automated exposure control, adjustment of the mA and/or kV according to patient size, and/or use of iterative reconstruction technique. COMPARISON: No relevant prior studies available. FINDINGS: Brain: Mild cerebral volume loss. No hemorrhage. No significant white matter disease. Ventricles: Unremarkable. No ventriculomegaly. Bones/joints: Sigmoid deviation of the nasal septum Soft tissues: Unremarkable. Sinuses: Bilateral maxillary, ethmoid and sphenoid sinus inflammatory changes Mastoid air cells: Unremarkable as visualized. No mastoid effusion. IMPRESSION: Head CT negative for acute intracranial abnormality
[2023-01-02 01:40] LABS: Band Neutrophils % 18 %; Lymphocytes # (M) 6.03 k/uL (1.0-4.8); Metamyelocytes # (M) 0.27 k/uL (0); Metamyelocytes % 2 %; Neutrophils % (M) 30 %; Nucleated Red Blood Cells 1 /100 WBC (0-0); Total Cells Counted 200; WBC 13.4 k/uL (3.8-10.6)
[2023-01-02 01:41] LABS: Large Platelets Present
[2023-01-02 01:42] LABS: Ovalocytes Present; Poikilocytosis (M) Present
--- NOTE | 2023-01-02 01:42 | CT ---
EXAM: CT Abdomen and Pelvis Without Intravenous Contrast CLINICAL HISTORY: ITS.REASON CT Reason: cardiac arrest TECHNIQUE: Axial computed tomography images of the abdomen and pelvis without intravenous contrast. CTDI is 23 mGy and DLP is 1479 mGy-cm. This CT exam was performed using one or more of the following dose reduction techniques: automated exposure control, adjustment of the mA and/or kV according to patient size, and/or use of iterative reconstruction technique. COMPARISON: Small bilateral pleural effusions. FINDINGS: Lung bases: Extensive consolidative changes of the lower lobes bilaterally with lesser degrees of infiltrate within the right middle lobe and lingula. Heart: Marked cardiomegaly. ABDOMEN: Liver: Cirrhotic liver. Gallbladder and bile ducts: Unremarkable. No calcified stones. No ductal dilation. Pancreas: Unremarkable. No ductal dilation. Spleen: Unremarkable. No splenomegaly. Adrenals: Unremarkable. No mass. Kidneys and ureters: Unremarkable. No obstructing stones. No hydronephrosis. Stomach and bowel: Extensive dilatation of the small bowel which is filled with air and fluid. No clear transition point is identified on this exam. No mucosal thickening. PELVIS: Appendix: No findings to suggest acute appendicitis. Bladder: Unremarkable. No stones. Reproductive: Unremarkable as visualized. ABDOMEN and PELVIS: Intraperitoneal space: Extensive intra-abdominal volume of abdominal and pelvic ascites. No free air. Bones/joints: No acute fracture. No dislocation. Soft tissues: Unremarkable. Vasculature: Unremarkable. No abdominal aortic aneurysm. Lymph nodes: Unremarkable. No enlarged lymph nodes. IMPRESSION: 1. Bibasilar atelectasis right slightly greater than left may represent aspiration pneumonitis. Clinical correlation recommended 2. Cardiomegaly 3. Marked intra-abdominal ascites 4. Small bowel ileus 5. Hepatic cirrhosis
--- NOTE | 2023-01-02 01:42 | ED ---
CPR HPI - General Chief Complaint: Cardiac Arrest/CPR Stated Complaint: Cardiac Arrest Time Seen by Provider: 01/01/23 23:22 Source: EMS Mode of arrival: EMS Limitations: altered mental status - History of Present Illness Initial Comments: This patient is a 67-year-old man who was brought to the emergency department by EMS. They were called out for patient who was unresponsive. It was reported to us that hospital social worker CPR was in progress. It was reported to us that initial rhythm was found to be asystole. They had performed ACLS including intubation, intraosseous line insertion, chest compressions, epinephrine administration and defibrillation and that they had a return of circulation. Was reported that there was another episode where pulses were lost with a removal to restore them with another round of ACLS. We were given further history that EMS had been called out to the same location earlier in the day and the patient had refused transportation to the hospital. It is reported that the patient had evidence of GI bleeding on the scene, with coffee-ground emesis and probably some melanotic stool passed. We were given history that the patient had extensive use of alcohol by history. Not able to obtain any history from the patient as she is unresponsive MD Complaint: stopped breathing -: minute(s) Place: home Bystander CPR Performed: Yes AED Applied by Bystander/Pilot Fuel Engineer: No Shock Advised: No Initial Findings in the Field: unresponsive, other rhythm (asystole) ROSC in the Field: Yes Associated Injuries: No Associated Symptoms: other Treatments Prior to Arrival: intubation, chest compressions, epinephrine mgs # - Related Data Home Medications Medication Instructions Recorded Confirmed Atorvastatin [Lipitor] 40 mg PO HS 07/15/21 11/06/21 amLODIPine [Norvasc] 10 mg PO DAILY 07/15/21 11/06/21 Furosemide [Lasix] 20 mg PO DAILY 11/06/21 11/06/21 Previous Rx's Medication Instructions Recorded Spironolactone [Aldactone] 25 mg PO DAILY #30 tab 01/31/15 Apixaban [Eliquis] 5 mg PO BID #60 tab 11/08/21 Metoprolol Succinate (ER) [Toprol 75 mg PO BID 11/10/21 XL] Nicotine 21Mg/24Hr Patch [Habitrol] 1 patch TRANSDERM DAILY patch 11/10/21 Allergies Allergy/AdvReac Type Severity Reaction Status Date / Time No Known Allergies Allergy Verified 07/15/21 19:23 Review of Systems ROS Statement: Those systems with pertinent positive or pertinent negative responses have been documented in the HPI. ROS Other: All systems not noted in ROS Statement are negative. Limitations: ROS unobtainable due to patients medical condition Past Medical History Past Medical History: Atrial Fibrillation, Coronary Artery Disease (CAD), Diabetes Mellitus, Hyperlipidemia, Hypertension Additional Past Medical History / Comment(s): Patient's chart revealed a admission in 2014 congestive heart failure with some mention of alcohol-related cardiomyopathy. The patient admitted to still drinking but not drinking as much as he used to. History of Any Multi-Drug Resistant Organisms: None Reported Past Surgical History: No Surgical Hx Reported Additional Past Surgical History / Comment(s): had 7 teeth removed d/t infection Past Anesthesia/Blood Transfusion Reactions: No Reported Reaction Past Psychological History: No Psychological Hx Reported Smoking Status: Current every day smoker Past Alcohol Use History: Occasional Past Drug Use History: None Reported - Past Family History Sister(s) Family Medical History: No Reported History Brother(s) Family Medical History: Coronary Artery Disease (CAD) Additional Family Medical History / Comment(s): CABG Mother Family Medical History: Diabetes Mellitus General Exam Limitations: altered mental status (unresponsive) General appearance: other (unresponsive) Head exam: Present: atraumatic, normocephalic Eye exam: Present: other (Cornea is dry. Pupils are approximately 7 mm and unreactive bilaterally. no corneal reflexes). Absent: normal appearance, PERRL, EOMI, conjunctival injection ENT exam: Present: mucous membranes dry, other (There is endotracheal tube with bite block present. There is some coffee-ground emesis around the oral cavity) Neck exam: Present: normal inspection, other (There is no evidence of bony deformity or step-off). Absent: tenderness Respiratory exam: Present: other (No spontaneous inspiratory effort arrival. No breath sounds. With bag ventilation there are scattered rhonchi throughout. No evidence of bony deformity or trauma) Cardiovascular Exam: Present: normal rhythm, tachycardia, systolic murmur. Absent: diastolic murmur, rubs, gallop GI/Abdominal exam: Present: soft, distended. Absent: tenderness, guarding, rebound, pulsatile mass Rectal exam: Present: decreased rectal tone, bloody stool exam: Present: other (There is moderate foreskin edema. No evidence of trauma) Extremities exam: Present: other (There is an intraosseous line inserted at the left proximal tibia. Chronic dermatitis changes to the ankles bilaterally). Absent: normal inspection Back exam: Present: normal inspection, other (There is lividity noted from the low back down to the mid hamstring area. No bony deformity). Absent: vertebral tenderness Expanded Neurological exam: Present: other (Patient is unresponsive to the neurologic exam, no cranial nerve or deep tendon reflexes.) Patient oriented to: Absent: person, place, time Cranial nerves: EOM's Intact: Abnormal Right, Abnormal Left, Gag Reflex: Abnormal Right, Abnormal Left DTR: Patellar (R): 0, Patellar (L): 0, Achilles Tendon (R): 0, Achilles Tendon (L): 0 Eye Response: (1) no response Motor Response: (1) no motor response Verbal Response: (1) no verbal response Kailyn Total: 3 Skin exam: Present: dry, rash (Dermatitis bilateral ankle area), pallor Course Vital Signs 01/01/23 01/01/23 01/01/23 23:20 23:26 23:42 Temperature Pulse Rate 129 H 122 H Respiratory Rate Blood Pressure 83/61 83/61 Fraction of 100 100 Inspired Oxygen (FIO2) 01/01/23 01/01/23 01/02/23 23:51 23:57 00:00 Temperature Pulse Rate 100 130 H 125 H Respiratory Rate Blood Pressure 33/22 86/52 86/52 Fraction of Inspired Oxygen (FIO2) 01/02/23 01/02/23 01/02/23 00:16 01:00 01:40 Temperature 100.6 F H Pulse Rate 51 L 107 H 102 H Respiratory Rate Blood Pressure 76/67 51/31 49/33 Fraction of Inspired Oxygen (FIO2) 01/02/23 01/02/23 01/02/23 01:49 02:00 02:45 Temperature Pulse Rate 98 112 H 58 L Respiratory 18 Rate Blood Pressure 57/21 57/21 59/28 Fraction of Inspired Oxygen (FIO2) 01/02/23 01/02/23 01/02/23 03:00 03:22 03:30 Temperature Pulse Rate 38 L 19 L Respiratory Rate Blood Pressure 50/20 37/19 Fraction of 100 Inspired Oxygen (FIO2) 01/02/23 03:33 Temperature Pulse Rate 30 L Respiratory Rate Blood Pressure Fraction of Inspired Oxygen (FIO2) Procedures - Central Line Placement Left Femoral Consent Obtained: emergent situation Patient Placed on Monitor/Pulse Ox: Yes Prep: mask, gown, gloves Central Line Prep: Chlorhexidine scrub Ultrasound Used for Placement: Yes Central Line Lumen Inserted: triple Central Line Position: good blood return, all ports aspirated, flushed, capped, sutured in place with nylon Dressing Applied: Tegaderm Patient Tolerated Procedure: well, no complications Complications: none Medical Decision Making - Medical Decision Making Please note that this is a replacement dictation as the original appears to have been lost in the computer system area This patient is a 67-year-old man wrought by ambulance after they were called out for unresponsive person. After prolonged ACLS, EMS was able to have a synagogue of circulation. The patient brought here and transferred to the resuscitation bed where patient was connected to the ventilator, I placed a left femoral triple lumen central line, for the emergency administration of multiple medications and fluid, see the procedure note. A bit after this, the patient did require more epinephrine as the pulses had ceased briefly but there was a synagogue of circulation. The patient did have daughters who arrived in the emergency department and were able to provide additional history that there was extensive drinking history and some known liver disease. The patient did not really see physician and reportedly not really taking care of self. The workup of the patient does include chest x-ray which I interpreted as showing suspected aspiration pneumonia. CT of the brain I interpreted as showing no acute bony trauma and no intracranial hemorrhage. CT of the abdomen and pelvis was obtained which I interpreted as showing presence of ascites. No evident surgical condition or bowel obstruction. The patient initially stabilized and I discussed case with admitting physician and with the bank guard. The patient is given a number of medications including IV fluids, pressors to support blood pressure, a dose of albuterol given the underlying liver disease without lab results of the protein level. Following return of the ammonia level, orders entered for lactulose by enema. IV antibiotics for possible sepsis also administered. Discussed with the patient's daughters the extremely grave prognosis given the prolonged downtime and the multisystem organ failure. There was prolonged discussion with the patient's daughters who stated that it was their belief that he would not want any heroic measures such a prolonged his life, including any further CPR and they did not even want to have further pressors administered. In light of this, the patient was weaned from pressors, lost pulses and pronounced . Case is discussed with the manager medical device. Was pt. sent in by a medical professional or institution (, [facility], [facility], urgent care, hospital, or intermediate...) When possible be specific @ -[No] Did you speak to anyone other than the patient for history (EMS, parent, family, police, friend...)? What history was obtained from this source @ -[EMS and patient daughter Did you review nursing and triage notes (agree or disagree)? Why? @ -[I reviewed and agree with nursing and triage notes] Were old charts reviewed (outside hosp., previous admission, EMS record, old EKG, old radiological studies, urgent care reports/EKG's, intermediate records)? Report findings @ -[old charts were reviewed] Differential Diagnosis (chest pain, altered mental status, abdominal pain women, abdominal pain men, vaginal bleeding, weakness, fever, dyspnea, syncope, headache, dizziness, GI bleed, back pain, seizure, CVA, palpatations, mental health, musculoskeletal)? @ -[Differential Altered Mental Status: Hypoglycemia, DKA, hypercapnia, ETOH, overdose, CO poisoning, trauma, HTN encephalopathy, infection, encephalitis, intercranial hemorrhage, hepatic encephalopathy, meningitis, CVA, cardiopulmonary arrest this is not meant to be an all-inclusive list EKG interpreted by me (3pts min.). @ -[As above] X-rays interpreted by me (1pt min.). @ -[As above CT interpreted by me (1pt min.). @ -[As above U/S interpreted by me (1pt. min.). @ -[None done] What testing was considered but not performed or refused? (CT, X-rays, U/S, labs)? Why? @ -[None] What meds were considered but not given or refused? Why? @ -[None] Did you discuss the management of the patient with other professionals (professionals i.e. JAMES Garcia, [facility], lab, RT, psych nurse, social sciences department chair, clinical sales consultant, teacher, patient safety officer, rehabilitation caseworker)? Give summary @ -[Case discussed with admitting physician and with the bank guard. After the patient , case discussed with the manager medical device Was smoking cessation discussed for >3mins.? @ -[No] Was critical care preformed (if so, how long)? @ -[45 minutes Were there social determinants of health that impacted care today? How? (Homelessness, low income, unemployed, alcoholism, drug addiction, transportation, low edu. Level, literacy, decrease access to med. care, senior care, rehab)? @ -[Alcoholism Was there de-escalation of care discussed even if they declined (Discuss DNR or withdrawal of care, Hospice)? DNR status @ -[Yes, family requested to discuss withdrawal of care/DNR status What co-morbidities impacted this encounter? (DM, HTN, Smoking, COPD, CAD, Cancer, CVA, ARF, Chemo, Hep., AIDS, mental health diagnosis, sleep apnea, morbid obesity)? @ -[Chronic liver disease Was patient admitted / discharged? Hospital course, mention meds given and route, prescriptions, significant lab abnormalities, going to OR and other pertinent info. @ -[The patient in the emergency department Undiagnosed new problem with uncertain prognosis? @ -[No] Drug Therapy requiring intensive monitoring for toxicity (Heparin, Nitro, Insulin, Cardizem)? @ -[No] Were any procedures done? @ -[Central intravenous line placed by myself see the note Diagnosis/symptom? @ -[1. Cardiopulmonary arrest with ROSC 2. Gastrointestinal bleeding 3. Severe metabolic acidosis 4. Hepatic encephalopathy 5. Chronic liver disease 6. Ascites 7. Hypoglycemia 8. Acute kidney injury 9. Probable aspiration pneumonia Acute, or Chronic, or Acute on Chronic? @ -[Acute Uncomplicated (without systemic symptoms) or Complicated (systemic symptoms)? @ -[Complicated Side effects of treatment? @ -[No] Exacerbation, Progression, or Severe Exacerbation? @ -[No] Poses a threat to life or bodily function? How? (Chest pain, [place], NE, pneumonia, PE, COPD, DKA, ARF, appy, cholecystitis, CVA, Diverticulitis, Homicidal, Suicidal, threat to staff... and all critical care pts) @ -[Yes - Lab Data Result diagrams: 01/01/23 23:37 01/01/23 23:37 Lab Results 01/01/23 01/01/23 01/01/23 Range/Units 23:35 23:37 23:37 WBC 13.4 H (3.8-10.6) k/uL RBC 5.09 (4.30-5.90) m/uL Hgb 13.5 (13.0-17.5) gm/dL Hct 45.5 (39.0-53.0) % MCV 89.4 (80.0-100.0) fL MCH 26.5 (25.0-35.0) pg MCHC 29.7 L (31.0-37.0) g/dL RDW 17.1 H (11.5-15.5) % Plt Count 189 (150-450) k/uL MPV 10.2 Neutrophils % (Manual) 30 % Band Neuts % (Manual) 18 % Lymphocytes % (Manual) 45 % Monocytes % (Manual) 6 % Metamyelocytes % 2 % Neutrophils # (Manual) 6.40 (1.3-7.7) k/uL Lymphocytes # (Manual) 6.03 H (1.0-4.8) k/uL Monocytes # (Manual) 0.80 (0-1.0) k/uL Metamyelocytes # (Man) 0.27 H (0) k/uL Nucleated RBCs 1 H (0-0) /100 WBC Manual Slide Review Performed Large Platelets Present Hypochromasia Marked Poikilocytosis (manual Present Anisocytosis Slight Ovalocytes Present PT 12.6 H (9.0-12.0) sec INR 1.2 H (<1.2) APTT 29.3 (22.0-30.0) sec Sodium (137-145) mmol/L Potassium (3.5-5.1) mmol/L Chloride (98-107) mmol/L Carbon Dioxide (22-30) mmol/L Anion Gap mmol/L BUN (9-20) mg/dL Creatinine (0.66-1.25) mg/dL Est GFR (CKD-EPI)AfAm (>60 ml/min/1.73 sqM) Est GFR (CKD-EPI)NonAf (>60 ml/min/1.73 sqM) Glucose (74-99) mg/dL POC Glucose (mg/dL) (70-110) mg/dL POC Glu Attacher ID Lactic Ac Sepsis Rflx Plasma Lactic Acid Jerson (0.7-2.0) mmol/L Calcium (8.4-10.2) mg/dL Magnesium (1.6-2.3) mg/dL Total Bilirubin (0.2-1.3) mg/dL AST (17-59) U/L ALT (4-49) U/L Alkaline Phosphatase (38-126) U/L Ammonia (<30) umol/L Troponin I (0.000-0.034) ng/mL Total Protein (6.3-8.2) g/dL Albumin (3.5-5.0) g/dL Serum Alcohol mg/dL Blood Type Blood Type Confirm A Positive Blood Type Recheck Bld Type Recheck Status Antibody Screen Spec Expiration Date 01/01/23 01/01/23 01/01/23 Range/Units 23:37 23:37 23:37 WBC (3.8-10.6) k/uL RBC (4.30-5.90) m/uL Hgb (13.0-17.5) gm/dL Hct (39.0-53.0) % MCV (80.0-100.0) fL MCH (25.0-35.0) pg MCHC (31.0-37.0) g/dL RDW (11.5-15.5) % Plt Count (150-450) k/uL MPV Neutrophils % (Manual) % Band Neuts % (Manual) % Lymphocytes % (Manual) % Monocytes % (Manual) % Metamyelocytes % % Neutrophils # (Manual) (1.3-7.7) k/uL Lymphocytes # (Manual) (1.0-4.8) k/uL Monocytes # (Manual) (0-1.0) k/uL Metamyelocytes # (Man) (0) k/uL Nucleated RBCs (0-0) /100 WBC Manual Slide Review Large Platelets Hypochromasia Poikilocytosis (manual Anisocytosis Ovalocytes PT (9.0-12.0) sec INR (<1.2) APTT (22.0-30.0) sec Sodium 138 (137-145) mmol/L Potassium 4.9 (3.5-5.1) mmol/L Chloride 99 (98-107) mmol/L Carbon Dioxide 19 L (22-30) mmol/L Anion Gap 20 mmol/L BUN 18 (9-20) mg/dL Creatinine 1.70 H (0.66-1.25) mg/dL Est GFR (CKD-EPI)AfAm 48 (>60 ml/min/1.73 sqM) Est GFR (CKD-EPI)NonAf 41 (>60 ml/min/1.73 sqM) Glucose 51 L (74-99) mg/dL POC Glucose (mg/dL) (70-110) mg/dL POC Glu Attacher ID Lactic Ac Sepsis Rflx Plasma Lactic Acid Jerson 11.5 H* (0.7-2.0) mmol/L Calcium 8.0 L (8.4-10.2) mg/dL Magnesium 2.4 H (1.6-2.3) mg/dL Total Bilirubin 2.8 H (0.2-1.3) mg/dL AST 718 H (17-59) U/L ALT 162 H (4-49) U/L Alkaline Phosphatase 102 (38-126) U/L Ammonia 284 H (<30) umol/L Troponin I 0.028 (0.000-0.034) ng/mL Total Protein 7.3 (6.3-8.2) g/dL Albumin 3.2 L (3.5-5.0) g/dL Serum Alcohol <10 mg/dL Blood Type Blood Type Confirm Blood Type Recheck Bld Type Recheck Status Antibody Screen Spec Expiration Date 01/01/23 01/01/23 01/02/23 Range/Units 23:37 23:40 00:21 WBC (3.8-10.6) k/uL RBC (4.30-5.90) m/uL Hgb (13.0-17.5) gm/dL Hct (39.0-53.0) % MCV (80.0-100.0) fL MCH (25.0-35.0) pg MCHC (31.0-37.0) g/dL RDW (11.5-15.5) % Plt Count (150-450) k/uL MPV Neutrophils % (Manual) % Band Neuts % (Manual) % Lymphocytes % (Manual) % Monocytes % (Manual) % Metamyelocytes % % Neutrophils # (Manual) (1.3-7.7) k/uL Lymphocytes # (Manual) (1.0-4.8) k/uL Monocytes # (Manual) (0-1.0) k/uL Metamyelocytes # (Man) (0) k/uL Nucleated RBCs (0-0) /100 WBC Manual Slide Review Large Platelets Hypochromasia Poikilocytosis (manual Anisocytosis Ovalocytes PT (9.0-12.0) sec INR (<1.2) APTT (22.0-30.0) sec Sodium (137-145) mmol/L Potassium (3.5-5.1) mmol/L Chloride (98-107) mmol/L Carbon Dioxide (22-30) mmol/L Anion Gap mmol/L BUN (9-20) mg/dL Creatinine (0.66-1.25) mg/dL Est GFR (CKD-EPI)AfAm (>60 ml/min/1.73 sqM) Est GFR (CKD-EPI)NonAf (>60 ml/min/1.73 sqM) Glucose (74-99) mg/dL POC Glucose (mg/dL) 52 L 29 L (70-110) mg/dL POC Glu Attacher ID Pardeep Alfaro Zoey Lactic Ac Sepsis Rflx Plasma Lactic Acid Jerson (0.7-2.0) mmol/L Calcium (8.4-10.2) mg/dL Magnesium (1.6-2.3) mg/dL Total Bilirubin (0.2-1.3) mg/dL AST (17-59) U/L ALT (4-49) U/L Alkaline Phosphatase (38-126) U/L Ammonia (<30) umol/L Troponin I (0.000-0.034) ng/mL Total Protein (6.3-8.2) g/dL Albumin (3.5-5.0) g/dL Serum Alcohol mg/dL Blood Type A Positive Blood Type Confirm Blood Type Recheck No Previous Record Bld Type Recheck Status CABO Indicated Antibody Screen NEGATIVE Spec Expiration Date 01/04/2023 - 233901/02/23 01/02/23 01/02/23 Range/Units 00:44 01:06 01:06 WBC (3.8-10.6) k/uL RBC (4.30-5.90) m/uL Hgb (13.0-17.5) gm/dL Hct (39.0-53.0) % MCV (80.0-100.0) fL MCH (25.0-35.0) pg MCHC (31.0-37.0) g/dL RDW (11.5-15.5) % Plt Count (150-450) k/uL MPV Neutrophils % (Manual) % Band Neuts % (Manual) % Lymphocytes % (Manual) % Monocytes % (Manual) % Metamyelocytes % % Neutrophils # (Manual) (1.3-7.7) k/uL Lymphocytes # (Manual) (1.0-4.8) k/uL Monocytes # (Manual) (0-1.0) k/uL Metamyelocytes # (Man) (0) k/uL Nucleated RBCs (0-0) /100 WBC Manual Slide Review Large Platelets Hypochromasia Poikilocytosis (manual Anisocytosis Ovalocytes PT (9.0-12.0) sec INR (<1.2) APTT (22.0-30.0) sec Sodium (137-145) mmol/L Potassium (3.5-5.1) mmol/L Chloride (98-107) mmol/L Carbon Dioxide (22-30) mmol/L Anion Gap mmol/L BUN (9-20) mg/dL Creatinine (0.66-1.25) mg/dL Est GFR (CKD-EPI)AfAm (>60 ml/min/1.73 sqM) Est GFR (CKD-EPI)NonAf (>60 ml/min/1.73 sqM) Glucose (74-99) mg/dL POC Glucose (mg/dL) 159 H 118 H (70-110) mg/dL POC Glu Attacher ID Katharina Zimmer Kyle Lactic Ac Sepsis Rflx Y Plasma Lactic Acid Jerson (0.7-2.0) mmol/L Calcium (8.4-10.2) mg/dL Magnesium (1.6-2.3) mg/dL Total Bilirubin (0.2-1.3) mg/dL AST (17-59) U/L ALT (4-49) U/L Alkaline Phosphatase (38-126) U/L Ammonia (<30) umol/L Troponin I (0.000-0.034) ng/mL Total Protein (6.3-8.2) g/dL Albumin (3.5-5.0) g/dL Serum Alcohol mg/dL Blood Type Blood Type Confirm Blood Type Recheck Bld Type Recheck Status Antibody Screen Spec Expiration Date 01/02/23 01/02/23 Range/Units 01:44 03:03 WBC (3.8-10.6) k/uL RBC (4.30-5.90) m/uL Hgb (13.0-17.5) gm/dL Hct (39.0-53.0) % MCV (80.0-100.0) fL MCH (25.0-35.0) pg MCHC (31.0-37.0) g/dL RDW (11.5-15.5) % Plt Count (150-450) k/uL MPV Neutrophils % (Manual) % Band Neuts % (Manual) % Lymphocytes % (Manual) % Monocytes % (Manual) % Metamyelocytes % % Neutrophils # (Manual) (1.3-7.7) k/uL Lymphocytes # (Manual) (1.0-4.8) k/uL Monocytes # (Manual) (0-1.0) k/uL Metamyelocytes # (Man) (0) k/uL Nucleated RBCs (0-0) /100 WBC Manual Slide Review Large Platelets Hypochromasia Poikilocytosis (manual Anisocytosis Ovalocytes PT (9.0-12.0) sec INR (<1.2) APTT (22.0-30.0) sec Sodium (137-145) mmol/L Potassium (3.5-5.1) mmol/L Chloride (98-107) mmol/L Carbon Dioxide (22-30) mmol/L Anion Gap mmol/L BUN (9-20) mg/dL Creatinine (0.66-1.25) mg/dL Est GFR (CKD-EPI)AfAm (>60 ml/min/1.73 sqM) Est GFR (CKD-EPI)NonAf (>60 ml/min/1.73 sqM) Glucose (74-99) mg/dL POC Glucose (mg/dL) 86 86 (70-110) mg/dL POC Glu Attacher ID Mayra Murray Jackie Lactic Ac Sepsis Rflx Plasma Lactic Acid Jerson (0.7-2.0) mmol/L Calcium (8.4-10.2) mg/dL Magnesium (1.6-2.3) mg/dL Total Bilirubin (0.2-1.3) mg/dL AST (17-59) U/L ALT (4-49) U/L Alkaline Phosphatase (38-126) U/L Ammonia (<30) umol/L Troponin I (0.000-0.034) ng/mL Total Protein (6.3-8.2) g/dL Albumin (3.5-5.0) g/dL Serum Alcohol mg/dL Blood Type Blood Type Confirm Blood Type Recheck Bld Type Recheck Status Antibody Screen Spec Expiration Date - EKG Data -: EKG Interpreted by Ct EKG shows normal: axis (Normal), intervals (Normal), QRS complexes (Low voltage QRS complex) Rate: tachycardia (126 bpm) Interpretation: nonspecific ST-T wave changes, other (Underlying rhythm appears to be atrial fibrillation with rate at 126 bpm) Critical Care Time Critical Care Time: Yes (45 minutes) Disposition Clinical Impression: Atrial fibrillation with rapid ventricular response, Cardiac arrest, Hypoglycemia, Hepatic encephalopathy, Gastrointestinal bleeding, Lactic aci dosis, Acute kidney injury, Aspiration pneumonia Disposition: Condition: Critical Is patient prescribed a controlled substance at d/c from ED?: No Preliminary Cause of : Cardiopulmonary arrest
[2023-01-02] MEDS ORDERED: SODIUM BICARB 8.4% 50 ML SYR (1 MEQ/ML) IV STA (01:50)
[2023-01-02 01:55] LABS: Glucose,Whole Blood 86 mg/dL (70-110)
[2023-01-02] MEDS ORDERED: ALBUMIN HUMAN 25% 50 ML in EMPTY BAG 1 BAG IVPB ONE (02:00)
[2023-01-02] MEDS ORDERED: LACTULOSE 200 GM/300 ML (FROM 1/2 GAL JUG) RECTAL ONE (02:00)
[2023-01-02 02:17] VITALS: RESP 18
[2023-01-02 03:05] LABS: Glucose,Whole Blood 86 mg/dL (70-110)
[2023-01-02] MEDS ORDERED: DEXTROSE 5% IN WATER 1,000 ML with SODIUM BICARB (1 MEQ/ML) 150 ML IV SCH (03:15)
[2023-01-02] MEDS ORDERED: VASOPRESSIN 60 UNIT in SODIUM CHLORIDE 0.9% 150 ML IV SCH (03:15)
[2023-01-02 03:34] VITALS: PULSE 30
[2023-01-02 03:52] VITALS: BP 37/19
[2023-01-02] MEDS ORDERED: NALOXONE 0.4 MG/ML 1 ML VIAL IV PRN (04:07)
--- NOTE | 2023-01-02 04:20 | P.HPIM ---
History of Present Illness H&P Date: 01/02/23 The patient is a 67-year-old male with a PMH of EtOH abuse, A. fib, CAD, type II DM, hypertension, hyperlipidemia who was brought into the emergency room by EMS for cardiac arrest. History was obtained from the ED physician and documentation as well as the daughters at the bedside as the patient was intubated at the time of interview. The patient had reportedly been not feeling well and had episodes of GI bleeding earlier today for which EMS was called. The patient at that time refused to go to the hospital and EMS was subsequently called back as the patient became unresponsive. The patient was noted to be in asystole by EMS and underwent CPR. He was given a total of 6 ampules of epinep hrine, 1 sodium carbonate, and an IO access was obtained. ROSC was achieved following a nearly 60 minutes of total CPR time. Upon arrival in the emergency room, the patient underwent an extensive evaluation. He was placed on a ventilator and was started on Levophed infusion. Laboratory evaluation revealed a leukocytosis of 13.4, lactic acid 11.5, glucose 52 and subsequently 29. Total bilirubin was 2.8. A CT abdomen and pelvis revealed marked intra-abdominal ascites with cirrhosis and bibasilar lung infiltrates. An ABG had also revealed a pH of 6.9. ED documentation reviewed and case discussed with ED provider. Review of systems: Unable to perform due to mental status Physical examination: Vital signs reviewed General: Disheveled chronically ill-appearing male on ventilator Derm: Significant scaling noted over both lower extremities Head: atraumatic, normocephalic, symmetric Eyes: anicteric sclera, pupils unreactive to light ENT: Nose and ears atraumatic Neck: No cervical lymphadenopathy, trachea midline, supple Mouth: no lip lesion Cardiovascular: S1S2 reg, no murmur, 1+ bilateral lower extremity pitting edema Lungs: Diffuse rhonchi and rales Abdominal: Severely distended Ext: no gross muscle atrophy, no contractures, Neuro: Unable to assess, patient not grimacing to noxious stimuli with no obvious cough or gag reflex Psych: Intubated male, unable to assess Assessment: Cardiac arrest Alcoholic cirrhosis Hypoglycemia Elevated ammonia Severe lactic acidosis Imaging: A CT abdomen and pelvis revealed marked intra-abdominal ascites with cirrhosis and bibasilar lung infiltrates. Data Review: Laboratory evaluation revealed a leukocytosis of 13.4, lactic acid 11.5, glucose 52 and subsequently 29. Total bilirubin was 2.8.An ABG had also revealed a pH of 6.9. Plan: Case was discussed in detail with the daughters at the bedside. Patient expressed their wishes at their father did not want to be kept alive artificially on machines and that in light of his currently poor prognosis with prolonged downtime, that they wish to make him no code. C/ Levophed and sodium bicarbonate infusions Ceftriaxone IV ordered Pulmonary consulted and the patient to be admitted to the medical ICU Follow-up lactate levels Ventilator bundle Past Medical History Past Medical History: Atrial Fibrillation, Coronary Artery Disease (CAD), Diabetes Mellitus, Hyperlipidemia, Hypertension Additional Past Medical History / Comment(s): Patient's chart revealed a admission in 2014 congestive heart failure with some mention of alcohol-related cardiomyopathy. The patient admitted to still drinking but not drinking as much as he used to. History of Any Multi-Drug Resistant Organisms: None Reported Past Surgical History: No Surgical Hx Reported Additional Past Surgical History / Comment(s): had 7 teeth removed d/t infection Past Anesthesia/Blood Transfusion Reactions: No Reported Reaction Past Psychological History: No Psychological Hx Reported Smoking Status: Current every day smoker Past Alcohol Use History: Occasional Past Drug Use History: None Reported - Past Family History Sister(s) Family Medical History: No Reported History Brother(s) Family Medical History: Coronary Artery Disease (CAD) Additional Family Medical History / Comment(s): CABG Mother Family Medical History: Diabetes Mellitus Medications and Allergies Home Medications Medication Instructions Recorded Confirmed Type Spironolactone [Aldactone] 25 mg PO DAILY #30 tab 01/31/15 11/06/21 Rx Atorvastatin [Lipitor] 40 mg PO HS 07/15/21 11/06/21 History amLODIPine [Norvasc] 10 mg PO DAILY 07/15/21 11/06/21 History Furosemide [Lasix] 20 mg PO DAILY 11/06/21 11/06/21 History Apixaban [Eliquis] 5 mg PO BID #60 tab 11/08/21 Rx Metoprolol Succinate (ER) [Toprol 75 mg PO BID 11/10/21 Rx XL] Nicotine 21Mg/24Hr Patch [Habitrol] 1 patch TRANSDERM DAILY patch 11/10/21 Rx Allergies Allergy/AdvReac Type Severity Reaction Status Date / Time No Known Allergies Allergy Verified 07/15/21 19:23 Physical Exam Vitals: Vital Signs Temp Pulse Resp BP FiO2 01/02/23 03:33 30 L 01/02/23 03:30 19 L 37/19 01/02/23 03:22 100 01/02/23 03:00 38 L 50/20 01/02/23 02:45 58 L 59/28 01/02/23 02:00 112 H 18 5701/02/23 01:49 98 57/01/02/23 01:40 102 H 49/33 01/02/23 01:00 100.6 F H 107 H 51/31 01/02/23 00:16 51 L 76/67 01/02/23 00:00 125 H 86/52 01/01/23 23:57 130 H 86/52 01/01/23 23:51 100 33/22 01/01/23 23:42 122 H 83/61 100 01/01/23 23:26 100 01/01/23 23:20 129 H 83/61 Intake and Output 01/01/23 01/01/23 01/02/23 14:59 22:59 06:59 Intake Total 39.354 Balance 39.354 Intake: Intake, IV Titration 39.354 Amount Norepinephrine 32 mg In 39.354 Sodium Chloride 0.9% 218 ml @ 0.03 MCG/KG/MIN 1. 652 mls/hr IV .Q24H ONE Rx#:[id number] Other: Weight 117.48 kg Results CBC & Chem 7: 01/01/23 23:37 01/01/23 23:37 Labs: Abnormal Lab Results - Last 24 Hours (Table) 01/01/23 01/01/23 01/01/23 Range/Units 23:37 23:37 23:37 WBC 13.4 H (3.8-10.6) k/uL MCHC 29.7 L (31.0-37.0) g/dL RDW 17.1 H (11.5-15.5) % Lymphocytes # (Manual) 6.03 H (1.0-4.8) k/uL Metamyelocytes # (Man) 0.27 H (0) k/uL Nucleated RBCs 1 H (0-0) /100 WBC PT 12.6 H (9.0-12.0) sec INR 1.2 H (<1.2) Carbon Dioxide 19 L (22-30) mmol/L Creatinine 1.70 H (0.66-1.25) mg/dL Glucose 51 L (74-99) mg/dL POC Glucose (mg/dL) (70-110) mg/dL Plasma Lactic Acid Jerson (0.7-2.0) mmol/L Calcium 8.0 L (8.4-10.2) mg/dL Magnesium 2.4 H (1.6-2.3) mg/dL Total Bilirubin 2.8 H (0.2-1.3) mg/dL AST 718 H (17-59) U/L ALT 162 H (4-49) U/L Ammonia (<30) umol/L Albumin 3.2 L (3.5-5.0) g/dL 01/01/23 01/01/23 01/02/23 Range/Units 23:37 23:37 00:21 WBC (3.8-10.6) k/uL MCHC (31.0-37.0) g/dL RDW (11.5-15.5) % Lymphocytes # (Manual) (1.0-4.8) k/uL Metamyelocytes # (Man) (0) k/uL Nucleated RBCs (0-0) /100 WBC PT (9.0-12.0) sec INR (<1.2) Carbon Dioxide (22-30) mmol/L Creatinine (0.66-1.25) mg/dL Glucose (74-99) mg/dL POC Glucose (mg/dL) 52 L 29 L (70-110) mg/dL Plasma Lactic Acid Jerson 11.5 H* (0.7-2.0) mmol/L Calcium (8.4-10.2) mg/dL Magnesium (1.6-2.3) mg/dL Total Bilirubin (0.2-1.3) mg/dL AST (17-59) U/L ALT (4-49) U/L Ammonia 284 H (<30) umol/L Albumin (3.5-5.0) g/dL 01/02/23 01/02/23 Range/Units 00:44 01:06 WBC (3.8-10.6) k/uL MCHC (31.0-37.0) g/dL RDW (11.5-15.5) % Lymphocytes # (Manual) (1.0-4.8) k/uL Metamyelocytes # (Man) (0) k/uL Nucleated RBCs (0-0) /100 WBC PT (9.0-12.0) sec INR (<1.2) Carbon Dioxide (22-30) mmol/L Creatinine (0.66-1.25) mg/dL Glucose (74-99) mg/dL POC Glucose (mg/dL) 159 H 118 H (70-110) mg/dL Plasma Lactic Acid Jerson (0.7-2.0) mmol/L Calcium (8.4-10.2) mg/dL Magnesium (1.6-2.3) mg/dL Total Bilirubin (0.2-1.3) mg/dL AST (17-59) U/L ALT (4-49) U/L Ammonia (<30) umol/L Albumin (3.5-5.0) g/dL
== END 2023-01-02 05:32 | disposition expired | DRG 432 ==
LOC: EC 23:18 → 2SICU 01-02 04:09
PROVIDERS: ADMIT Internal Medicine; ATTEND Internal Medicine
DX: K70.31 Alcoholic cirrhosis of liver with ascites (principal); J69.0 Pneumonitis due to inhalation of food and vomit; N17.9 Acute kidney failure, unspecified; E87.21 Acute metabolic acidosis; I42.6 Alcoholic cardiomyopathy; K92.2 Gastrointestinal hemorrhage, unspecified; I46.9 Cardiac arrest, cause unspecified; E11.649 Type 2 diabetes mellitus with hypoglycemia without coma; I11.0 Hypertensive heart disease with heart failure; I50.9 Heart failure, unspecified; F10.10 Alcohol abuse, uncomplicated; K76.82 Hepatic encephalopathy; D72.829 Elevated white blood cell count, unspecified; I25.10 Atherosclerotic heart disease of native coronary artery without angina pectoris; I48.91 Unspecified atrial fibrillation; F17.210 Nicotine dependence, cigarettes, uncomplicated; B95.7 Other staphylococcus as the cause of diseases classified elsewhere; B96.20 Unspecified Escherichia coli [E. coli] as the cause of diseases classified elsewhere; E78.5 Hyperlipidemia, unspecified; Z66 Do not resuscitate; Y90.0 Blood alcohol level of less than 20 mg/100 ml; Z79.899 Other long term (current) drug therapy; Z79.01 Long term (current) use of anticoagulants; Z82.49 Family history of ischemic heart disease and other diseases of the circulatory system
CPT/HCPCS: 36415; 70450; 71045; 74176; 80053; 80320; 82140; 83605; 83735; 84484; 85025; 85610; 85730; 86850; 86900; 86901; 87070; 87077; 87186; 87205; 92950; 96365; 96367; 96375; 96376; 99291